=== PATIENT | female | born 1965 | race Caucasian/White ===

== ENCOUNTER 2017-05-13 10:18 | Emergency (ER) | payer OTHER, SELFPAY | END 2017-05-13 11:17 | disposition home or self-care (01) | PROVIDERS: Emergency Provider Nurse Practitioner Family; Family Provider Family Medicine; Visit Provider Nurse Practitioner Family | DX: J06.9 Acute upper respiratory infection, unspecified (principal); J40 Bronchitis, not specified as acute or chronic | CPT/HCPCS: 99201 ==

== ENCOUNTER 2018-12-21 08:54 | Outpatient (RCR) | payer OTHER, SELFPAY ==
[2018-12-28 14:11] VITALS: BMI 21.4
== END 2019-02-15 13:56 | disposition home or self-care (01) ==
LOC: PT 08:54
PROVIDERS: Visit Provider Internal Medicine Cardiovascular Disease
DX: I25.10 Atherosclerotic heart disease of native coronary artery without angina pectoris (principal)
CPT/HCPCS: 93798; 97802

== ENCOUNTER → 2018-12-28 10:52 | Outpatient (CLI) | payer OTHER, SELFPAY | PROVIDERS: PCP Family Medicine | DX: Z71.3 Dietary counseling and surveillance (principal); E11.9 Type 2 diabetes mellitus without complications ==

== ENCOUNTER 2021-09-21 09:28 | Emergency (ER) | payer OTHER, SELFPAY ==
[2021-09-21 09:40] VITALS: BP 123/79; PULSE 80; RESP 19; TEMP 37; O2SAT 100; BMI 20.5
[2021-09-21 09:56] LABS: Apearance,Urine Clear (Clear); Bilirubin,Urine 1+ (Negative); Blood, Urine 3+ (Negative); Color,Urine Amber (Yellow); Glucose,Urine (UA) 1000 (Negative); Ketones,Urine Negative (Negative); Protein,Urine 1+ (Negative); UTC Leukocyte Esterase,Urine Negative (Negative); UTC Nitrate,Urine Negative (Negative); Urobilinogen,Urine 1 EU/dl (0.2)
--- NOTE | 2021-09-21 10:04 | HMH.EDUTC ---
[facility] [place] Disposition Condition on Discharge: Good <Gael Groves - Last Filed: 09/21/21 11:54> Condition on Discharge: Good Time of Disposition: 10:17 <ChnadlerAnge - Last Filed: 09/21/21 15:44> Clinical Impression: Hematuria Qualifiers: Hematuria type: unspecified type Qualified Code(s): R31.9 - Hematuria, unspecified UTI (urinary tract infection) Qualifiers: Urinary tract infection type: acute cystitis Hematuria presence: with hematuria Qualified Code(s): N30.01 - Acute cystitis with hematuria Disposition: Home, Self-Care Instructions: Urinary Tract Infection Additional Instructions: Continue home medications as previously directed. Okay to take Tylenol, Motrin as needed for pain. Follow-up with your PCP for any persisting symptoms, return with new or concerning symptoms. No evidence of infection on urinalysis today. Prescriptions: Cefdinir [Omnicef 300mg Capsule] 300 mg PO BID #14 cap Transmission Status: Received by [facility] #[id number] Referrals: Alexey Hancock MD [Primary Care Provider] - Medical Decision Making - Medical Records Medical records reviewed: Yes: I reviewed the patient's medical records. - Lab Data Result diagrams: 09/21/21 10:35 09/21/21 10:35 - CT Data CT Scan: Abdomen, Pelvis Time Received: 11:[address] Reviewed: Yes: I have reviewed the patient's CT results <Gael Groves - Last Filed: 09/21/21 11:54> - David Inquiry Pt receiving controlled substance: No David was queried for this patient: No - Lab Data Lab results reviewed: Yes: I reviewed the patient's lab results. Result diagrams: 09/21/21 10:35 09/21/21 10:35 <Tamera Arteaga - Last Filed: 09/21/21 15:44> Vital Signs: 09/21/21 09:40 09/21/21 10:18 09/21/21 12:15 Temperature 98.6 F 97.9 F 98 F Temperature Source Axillary Oral Oral Pulse Rate 78 Pulse Rate [Right Brachial] 80 78 Respiratory Rate 19 16 16 Blood Pressure 123/74 Blood Pressure [Right Arm] 123/79 115/74 Blood Pressure Mean [Right Arm] 93 87 Blood Pressure Source [Right Arm] Automatic Cuff Blood Pressure Position Sitting Blood Pressure Position [Right Arm] Sitting Sitting 02 Sat by Pulse Oximetry 100 98 Oxygen Delivery Method Room Air Room Air Room Air - Lab Data Lab Results 09/21/21 09:46: Urine Color Twyla, Urine Appearance Turbid, Urine pH 7.0, Ur Specific Ong 1.010, Urine Protein 1+, Urine Glucose (UA) 3+, Urine Ketones Negative, Urine Blood 3+, Urine Nitrate Positive, Urine Bilirubin Negative, Urine Urobilinogen 1.0, Ur Leukocyte Esterase Trace, Urine RBC Tntc, Urine WBC 5-10, Urine Mucus 1+ 09/21/21 09:55: Urine Color Twyla, Urine Appearance Clear, Urine pH 7.0, Ur Specific Ong 1.020, Urine Protein 1+, Urine Glucose (UA) 1000, Urine Ketones Negative, Urine Blood 3+, Urine Nitrate Negative, Urine Bilirubin 1+ A, Urine Urobilinogen 1, Ur Leukocyte Esterase Negative 09/21/21 10:35: WBC 9.7, RBC 5.08, Hgb 16.1, Hct 49.2 H, MCV 96.8, MCH 31.7 H, MCHC 32.8, RDW 13.6, Plt Count 316, MPV 8.0, Neut % (Auto) 80.8 H, Lymph % (Auto) 11.6, [place] % (Auto) 4.0, Eos % (Auto) 1.0, Baso % (Auto) 2.5 H, Neut # (Auto) 7.9 H, Lymph # (Auto) 1.1, [place] # (Auto) 0.4, Eos # (Auto) 0.1, Baso # (Auto) 0.2 09/21/21 10:35: Sodium 136, Potassium 4.2, Chloride 97 L, Carbon Dioxide 31 H, Anion Gap 12.2, BUN 17, Creatinine 0.70, Estimated Creat Clear 67, Estimated GFR 87, Est GFR ( Amer) 105, Glucose 136 H, Calcium 10.0, Total Bilirubin 0.7, AST 34, ALT 29, Alkaline Phosphatase 43, Total Protein 7.4, Albumin 4.7, Globulin 2.7, Albumin/Globulin Ratio 1.7 Orders (Tests/Meds): ORDERS Category Date Time Status Urine Culture Stat Micro 09/21/21 09:57 Ordered - CT Data Findings Narrative: FINDINGS: Abdomen: The lung bases are clear. The liver parenchyma is homogeneous. There is sludge or debris in the dependent portion of the gallbladder. There is no pericholecystic inflammation. The spleen, pancreas, and adrenals ar
--- NOTE | 2021-09-21 10:10 | PC.NURSE ---
PATIENT SENT TO ER PER Santiago MCKINNEY APRN FOR FURTHER EVALUATION. REPORT GIVEN TO Zoe ESCAMILLA RN BY Santiago MCKINNEY APRN
[2021-09-21 10:18] VITALS: BP 115/74; PULSE 78; RESP 16; TEMP 36.6; O2SAT 98; BMI 20.5
--- NOTE | 2021-09-21 10:25 | CT_ITS ---
FINAL REPORT TECHNIQUE: Axial images through the abdomen and pelvis were performed without contrast. This study was performed with techniques to keep radiation doses as low as reasonably achievable, (ALARA). Individualized dose reduction techniques using automated exposure control or adjustment of mA and/or kV according to the patient's size were employed. CLINICAL HISTORY: R flank pain, hematuria. no hx surgeries COMPARISON: April 14, 2019 FINDINGS: Abdomen: The lung bases are clear. The liver parenchyma is homogeneous. There is sludge or debris in the dependent portion of the gallbladder. There is no pericholecystic inflammation. The spleen, pancreas, and adrenals are unremarkable. There is slight asymmetric prominence of the right renal pelvis. Pelvis: The urinary bladder is unremarkable. The appendix is normal. There is no pelvic mass or inflammation. There is moderate diverticulosis of the sigmoid colon. IMPRESSION: Sludge or debris in the gallbladder. Normal appendix. No renal stone or hydronephrosis. Moderate sigmoid diverticulosis. Reviewed, Interpreted and Dictated by Abilio Townsend MD Transcribed by Ryan Guillaume Authenticated by Abilio Townsend MD on 09/21/2021 11:32:58 AM [facility]
[2021-09-21 10:26] LABS: Microscopic, Urine URINE MICROSCOPIC (MICROSCOPIC)
[2021-09-21 10:36] LABS: Appearance,Urine TURBID (Clear); Bilirubin,Urine Negative (Negative); Blood, Urine 3+ (Negative); Color,Urine AMBER (Yellow); Glucose,Urine (UA) 3+ (Negative); Ketones,Urine Negative (Negative); Leukocyte Esterase,Urine TRACE (Negative); Nitrate,Urine POSITIVE (Negative); Protein,Urine 1+ (Negative)
[2021-09-21 10:45] LABS: Basophils # 0.2 K/mm3 (0-0.2); Basophils % 2.5 % (0.1-2.0); Eosinophils # 0.1 K/mm3 (0.0-0.4); Hematocrit 49.2 % (37.0-47.0); Hemoglobin 16.1 g/dL (12.2-16.2); Lymphocytes # 1.1 K/mm3 (0.7-4.5); Lymphocytes % 11.6 % (10-50); Mean Corpuscular HGB Conc 32.8 g/dL (31.8-35.4); Mean Corpuscular Hemoglobin 31.7 pg (27.0-31.2); Mean Corpuscular Volume 96.8 fl (81-99); Monocytes # 0.4 K/mm3 (0.1-1.0); Neutrophils # 7.9 K/mm3 (1.8-7.8); Neutrophils % 80.8 % (37.0-80.0); Platelet Count 316 K/mm3 (142-424); Red Blood Count 5.08 M/mm3 (4.20-5.40); Red Cell Distribution Width 13.6 % (11.5-17.5); White Blood Count 9.7 K/mm3 (4.8-10.8)
[2021-09-21 10:51] LABS: Chloride 97 mmol/L (98-107); Potassium 4.2 mmoL/L (3.5-5.1); Sodium 136 mmol/L (136-145)
[2021-09-21 10:53] LABS: Alanine Aminotransferase 29 U/L (12-78); Aspartate Amino Transferase 34 U/L (14-36); Blood Urea Nitrogen 17 mg/dl (7-17); Creatinine Clearance Estimated 67 mL/min (50-200); Estimated Glomerular Filt Rate 87 ml/min (>60); GFR (African American) 105 ML/MIN (>60)
[2021-09-21 10:54] LABS: Albumin Level 4.7 g/dl (3.5-5.0); Albumin/Globulin Ratio 1.7 (1.1-1.8); Alkaline Phosphatase 43 U/L (38-126); Anion Gap 12.2 mEq/L (5-15); Bilirubin,Total 0.7 mg/dl (0.2-1.3); Carbon Dioxide 31 mmol/L (22.0-30.0); Globulin 2.7 g/dL (1.3-3.2); Glucose 136 mg/dl (74-100); Total Protein,Serum 7.4 g/dl (6.3-8.2)
[2021-09-21 11:30] LABS: RBC,Urine TNTC #/hpf (0-3)
[2021-09-21 11:34] LABS: Mucus,Urine 1+ /lpf
[2021-09-21 12:15] VITALS: BP 123/74; PULSE 78; RESP 16; TEMP 36.6; O2SAT 98
[2021-12-19 09:44] LABS: UTC Influenza A Antigen Negative (Negative); UTC Influenza B Antigen Negative (Negative)
== END 2021-09-21 12:17 | disposition home or self-care (01) ==
LOC: UTC 09:43 → ER 10:09
PROVIDERS: Nurse Practitioner; Emergency Provider Emergency Medicine; PCP Family Medicine
DX: N30.01 Acute cystitis with hematuria (principal); E11.9 Type 2 diabetes mellitus without complications; I10 Essential (primary) hypertension; I25.10 Atherosclerotic heart disease of native coronary artery without angina pectoris; Z79.84 Long term (current) use of oral hypoglycemic drugs; Z79.899 Other long term (current) drug therapy
CPT/HCPCS: 74176; 80053; 81001; 81003; 85025; 87086; 87088; 87186; 87804; 99284

== ENCOUNTER 2022-09-12 10:07 | Outpatient (RCR) | payer OTHER, SELFPAY | END 2022-12-19 11:00 | disposition home or self-care (01) | LOC: PT 10:07 | PROVIDERS: Visit Provider Internal Medicine Cardiovascular Disease | DX: I25.810 Atherosclerosis of coronary artery bypass graft(s) without angina pectoris (principal) | CPT/HCPCS: 93798 ==

== ENCOUNTER → 2023-07-10 14:35 | Outpatient (POV) | payer OTHER, BC, SELFPAY ==
--- NOTE | 2023-07-10 15:02 | EXP.PAIN.OV ---
HPI Data of Consult Patient: new to practice Consult date: 07/10/23 Requesting Physician: Twyla Crowley APRN Primary Care Provider: Deloris Wyatt APRN Consult Narrative Reason for consult: Low back pain, bilateral hip pain, buttocks pain History of present illness: Ms. Atwood is a 58 year old female who presents today as a new patient. She is a referral from Jumana Kelly's office. Today she rates her pain a 7 out of 10. Patient states her pain is all in her low back with radiating symptoms into her hips and buttocks. She describes this as an aching, burning sensation. She does state that she has had pain in her low back for more than 10 years and that generally she would do regular chiropractor and physical therapy and this would provide significant relief. Patient states over time it is no longer been as effective. She does state that the pain interferes with her ability perform activities of daily living such as cooking and cleaning. Patient is scheduled to see a neurosurgeon Dr. Sivakumar doran in [place] coming up in the next few weeks. Patient states that she is interested in injections for her low back and leg symptoms. Patient denies any previous injections into her low back however states she did have some in her neck in the past. Patient does states she has a significant cardiac history and did have open heart surgery back in June 2022. She does state that the pain seemed to worsen after this procedure. She states that she is interested in any help we may be able to provide is that she does not want to go into this some her having to have another surgery. Patient has tried krox-uey-[id number] medications such as Tylenol and ibuprofen along with Flexeril, heat and ice and topicals with minimal relief. Patient is not currently on any scheduled medications. Her David has been reviewed and is appropriate. CC: Twyla Crowley APRN [facility] Disclaimer: The information contained in this section may have been updated after the patient was seen, as this information can be updated by other users. Medical History (Updated 07/10/23 @ 15:58 by Twyla Crowley APRN) History of placement of stent in LAD coronary artery HTN (hypertension) Surgical History (Updated 07/10/23 @ 15:31 by Alanis Cameron RN) H/O spinal fusion History of open heart surgery Family History (Updated 07/10/23 @ 15:32 by Alanis Cameron RN) Other No significant family history Social History (Updated 12/06/22 @ 10:52 by Toma Mishra MA) Smoking Status: Never smoker alcohol intake: never substance use type: denies use current occupational status: other Travel in the last 8 weeks: None household members: family housing: house lives independently: Yes marital status: number of children: 2 number of grandchildren: 2 service: No mcc: No pets and animals: Yes Review of Systems Review of Systems Review of systems:: pertinent systems reviewed and negative unless documented below Review of systems (narrative): Review of Systems: General: No recent weight changes, no fever, no sleep disturbances Respiratory: No cough, no shortness of air, no recurring pulmonary infections Cardiovascular/peripheral vascular: No chest pain, no palpitations, no edema, no shortness of breath Gastrointestinal: No new onset incontinence, normal bowel movements reported Genitourinary: No new onset incontinence Musculoskeletal: Low back pain, bilateral hip/buttocks pain Psychiatric: [Normal mood/affect] Neurological: [Denies weakness in extremities], [denies balance issues] Meds Home Medications and Allergies Home Medications Medication Instructions Recorded Confirmed Type empagliflozin 25 mg tablet 25 mg PO DAILY Diabetes 04/14/19 12/06/22 History isosorbide dinitrate 30 mg tablet 30 mg PO DAILY Hypertension 04/14/19 12/06/22 History lisinopril 2.5 mg tablet 2.5 mg PO DAILY Hypertension 04/14/19 12/06/22 History metoprolol succinate 100 mg 100 mg PO BID Hypertension 04/14/19 12/06/22 History tablet,extended release 24 hr aspirin 81 mg tablet,delayed 81 mg PO DAILY 12/02/22 12/06/22 History release (Adult Low Dose Aspirin) cyclobenzaprine 10 mg tablet 10 mg PO HS 12/02/22 12/06/22 History naproxen 500 mg tablet 500 mg PO BID PRN 12/02/22 12/06/22 History ranolazine 500 mg tablet,extended 500 mg PO BID 12/02/22 12/06/22 History release,12 hr (Ranexa) semaglutide 0.25 mg or 0.5 mg (2 0.25 mg SQ WEEKLY 12/02/22 12/06/22 History mg/3 mL) subcutaneous pen injector (Ozempic) triamcinolone acetonide 0.1 % 1 applic topical BID #15 grams 12/06/22 12/06/22 Rx topical cream New Prescriptions to Start Prescriptions: Allergies Allergy/AdvReac Type Severity Reaction Status Date / Time No Known Allergies Allergy Verified 12/06/22 10:58 Objective Narrative: Physical Exam: General: Alert and oriented x3, no acute distress, pleasant and cooperative Lungs: Respirations even and unlabored, symmetrical chest expansion Eyes: PERRL Musculoskeletal: Flexion and extension of lumbar [spine] somewhat guarded secondary to pain, [antalgic gait noted] point tenderness along bilateral SIs with positive bilateral Alcides's, Cedric's, Gaenslen's, compression and distraction exam Neurological: Speech clear, no gross sensory deficit Additional findings Additional findings: [facility] 12/18/2022 MRI lumbar spine without contrast Findings: Sagittal images show normal vertebral height. Alignment is normal. Fatty endplate signal changes at L5-S1. Moderate disc protrusion at T11-12 with limited visualization seen on sagittal imaging only. T12-L3 unremarkable. L3-4: Mild annular disc bulge. L4-L5: Mild annular disc bulge and facet arthropathy. L5-S1 moderate-sized central disc protrusion indents the thecal sac. Mild facet arthropathy, moderate bilateral neuroforaminal narrowing Assessment and Plan *Assessment and plan (1) Low back pain: Status: Acute Qualifiers: Chronicity: chronic Back pain laterality: bilateral Sciatica presence: with sciatica Sciatica laterality: bilateral sciatica Qualified Code(s): M54.42 - Lumbago with sciatica, left side; M54.41 - Lumbago with sciatica, right side; G89.29 - Other chronic pain Category: Medical Code(s): M54.50 - Low back pain, unspecified (2) Bilateral hip pain: Status: Acute Category: Medical Code(s): M25.551 - Pain in right hip; M25.552 - Pain in left hip (3) Buttock pain: Status: Acute Category: Medical Code(s): M79.18 - Myalgia, other site Plan Patient is experiencing significant pain in her low back and bilateral hips with some pain into her buttocks. Patient did have point tenderness along her bilateral SIs and piriformis muscle along with a positive bilateral Alcides's, Cedric's, Gaenslen's, compression and distraction exam. I have discussed with the patient that I do believe that she would benefit from bilateral SI injections as well as possible piriformis injections in the future. Risk and benefits were discussed with the patient and she would like to proceed forward with this plan of care. I have also counseled the patient that I would recommend a second opinion regarding her neurosurgery consult before proceeding forward with a lumbar fusion. I will order the patient a compounded cream. Patient will be scheduled for bilateral SI injections under fluoroscopy. Patient has been instructed to contact the clinic with any concerns before the next appointment. Dr. Easton has reviewed this note and agrees with this plan of care. This note was dictated using voice recognition software and make contain errors or omissions.
[2023-07-10 15:32] VITALS: BP 110/63; PULSE 93; RESP 20; O2SAT 100; BMI 19.5
== END ==
LOC: SC.PAIN 14:36
PROVIDERS: PCP Nurse Practitioner Family; Visit Provider Nurse Practitioner Family
DX: M54.42 Lumbago with sciatica, left side (principal); M54.41 Lumbago with sciatica, right side; G89.29 Other chronic pain; M25.551 Pain in right hip; M25.552 Pain in left hip; M79.18 Myalgia, other site
CPT/HCPCS: 99202; G0463

== ENCOUNTER 2023-07-29 11:03 | Day surgery (SDC) | payer OTHER, BC, SELFPAY ==
[2023-07-29 11:56] VITALS: BP 106/60; PULSE 90; RESP 16; TEMP 36.6; O2SAT 99; BMI 19.7
[2023-07-29] MEDS: LIDOCAINE 1% 5ML PF VIAL 5 ML (12:15)
[2023-07-29] MEDS: BUPIVACAINE 0.25% 10ML INJ 25 MG IJ (12:15)
[2023-07-29] MEDS: methylPREDNISolone ACETATE 80MG/ML VIAL 80 MG (12:16)
--- NOTE | 2023-07-29 12:21 | P.PCN_ITS ---
Procedure Date: 07/29/23 Time: 12:00 Anesthesiologist:: Jose Bonds CRNA Complications:: None Pre-procedure Diagnosis:: Bilateral sacroiliitis Post-procedure Diagnosis:: Same. Indications for Procedure:: Patient is a very pleasant 58-year-old female comes our clinic today for bilateral sacroiliac joint injection. Patient reports bilateral posterior hip pain. Patient also reports difficulty transitioning from sitting to standing. Ambulation increases pain in the posterior hip area. She rates her pain today 7/10. Procedure Details:: Procedure: Bilateral sacroiliac joint injections under fluoroscopy Informed consent was obtained and the risks and benefits of the procedure were explained to the patient.~ The patient was taken to the procedure room and noninvasive monitors were placed including a noninvasive blood pressure cuff and pulse oximeter.~ The patient was placed prone on the procedure table. Both hips were cleansed using Betadine as a cleansing solution. C-arm fluoroscopy was used to view the right sacroiliac joint.~ The skin and subcutaneous tissues were anesthetized using lidocaine 1.5% and a 25-gauge needle.~ After this, a 22-gauge spinal needle was inserted under fluoroscopic guidance into the inferior aspect of the right sacroiliac joint.~ Omnipaque dye was injected and good spread was seen throughout the joint.~ After this, approximately 5 mL of bupivacaine, 0.25% and Depo-Medrol, 40 mg was incrementally injected into the right sacroiliac joint. We then moved to the left sacroiliac joint.~ The skin and subcutaneous tissues were anesthetized using lidocaine 1.5% and a 25-gauge needle.~ After this, a 22- gauge spinal needle was inserted under fluoroscopic guidance into the inferior aspect of the left sacroiliac joint.~ Omnipaque dye was injected and good spread was seen throughout the joint. After this, approximately 5 mL of bupivacaine, 0.25% and Depo-Medrol, 40 mg was incrementally injected into the left sacroiliac joint.~ The patient tolerated the procedure well with no complications. The patient was observed in the Pain Clinic and then was discharged home neurologically intact. Plan and Disposition:: Patient was discharged without incident.
[2023-07-29 12:25] VITALS: BP 104/58; PULSE 85; RESP 16; O2SAT 99
== END 2023-07-29 12:25 | disposition home or self-care (01) ==
PROVIDERS: Visit Provider Nurse Anesthetist, Certified Registered
DX: M46.1 Sacroiliitis, not elsewhere classified (principal)
CPT/HCPCS: 27096; G0260; J1040

== ENCOUNTER 2023-08-13 13:35 | Outpatient (POV) | payer OTHER, BC, SELFPAY ==
[2023-08-13 13:48] VITALS: BP 119/64; PULSE 90; RESP 18; BMI 19.5
--- NOTE | 2023-08-13 14:48 | EXP.PAIN.SOA ---
[facility] Pain Management SOAP Note Subjective:: Patient is a pleasant 58-year-old female who presents today for follow-up of bilateral SI injections on 07/29/2023. Her pain today is a 5 out of 10. She denies any new trauma or injury. She states she may have only had about 25% improvement following this injection. Patient does states she continues to have pain in her low back but that it is going down into her legs. Patient states that it is an aching, throbbing sensation with some numbness and tingling into her extremities. She does state that from her last visit she did talk to her keno writer/runner Dr. Schuster who does write her Plavix blood thinner and that he is stated that she can come off this medication for a week if needed for the injections. Patient does state the pain interferes with her ability perform activities of daily living such as cooking and cleaning. From our last visit she did state that she had improvement with the compounded cream when she applied it to her neck and shoulders however she states when she applied it across to her low back she did have a rash come up. Patient states that it was very random and again had no issues on the upper back. Patient states she is going to try and use it again in the future. Her David has been reviewed and is appropriate. Review of Systems: General: No recent weight changes, no fever, no sleep disturbances Respiratory: No cough, no shortness of air, no recurring pulmonary infections Cardiovascular/peripheral vascular: No chest pain, no palpitations, no edema, no shortness of breath Gastrointestinal: No new onset incontinence, normal bowel movements reported Genitourinary: No new onset incontinence Musculoskeletal: Low back pain, bilateral leg pain Psychiatric: [Normal mood/affect] Neurological: [Denies weakness in extremities], [denies balance issues] Objective:: Physical Exam: General: Alert and oriented x3, no acute distress, pleasant and cooperative Lungs: Respirations even and unlabored, symmetrical chest expansion Eyes: PERRL Musculoskeletal: Flexion and extension of lumbar [spine] somewhat guarded secondary to pain, [antalgic gait noted] Neurological: Speech clear, no gross sensory deficit Assessment:: Degenerative disc disease of lumbar spine with lumbar radiculopathy symptoms, bilateral hip pain, buttocks pain Plan:: Patient continues to experience significant pain in her low back and legs with limited range of motion of her lumbar spine. I have discussed with patient that she may benefit from a lumbar epidural steroid injection. Risk and benefits were discussed with the patient and she would like to proceed forward with this plan of care. Patient is on Plavix that is written by Dr. Schuster. We will reach out to his office and confirm that she can stop this medication. She states that he stated he would like something to our office if needed to confirm this. I have also discussed with the patient due to her skin reaction on her low back to make sure that when she does try the compounded cream again that she does not put it is all across her back and just try a small area first. Patient agrees with this plan of care. Patient has tried and failed conservative therapy such as oral medications, heat and ice, topicals, previous physical therapy, at home stretching exercise for longer than 6 weeks. Patient will be scheduled for an LESI L4-L5 under fluoroscopy. Patient has been instructed to contact the clinic with any concerns before the next appointment. Dr. Easton has reviewed this note and agrees with this plan of care. This note was dictated using voice recognition software and make contain errors or omissions. [facility] Disclaimer: The information contained in this section may have been updated after the patient was seen, as this information can be updated by other users. Medical History HTN (hypertension) History of placement of stent in LAD coronary artery Surgical History H/O spinal fusion History of open heart surgery Family History Other No significant family history Social History Smoking Status: Never smoker alcohol intake: never substance use type: denies use current occupational status: other Travel in the last 8 weeks: None household members: family housing: house lives independently: Yes marital status: number of children: 2 number of grandchildren: 2 service: No care home: No pets and animals: Yes
== END 2023-08-13 23:59 ==
LOC: SC.PAIN 13:36
PROVIDERS: Visit Provider Nurse Practitioner Family
DX: M51.16 Intervertebral disc disorders with radiculopathy, lumbar region (principal); M25.551 Pain in right hip; M25.552 Pain in left hip; M79.18 Myalgia, other site
CPT/HCPCS: 99212; G0463

== ENCOUNTER 2023-09-09 10:28 | Day surgery (SDC) | payer OTHER, BC, SELFPAY ==
[2023-09-09 10:55] VITALS: BP 111/70; BP 96/70; PULSE 72; PULSE 88; RESP 18; O2SAT 100; O2SAT 99; BMI 19.9
[2023-09-09 11:22] VITALS: BP 105/65; PULSE 90; RESP 18; O2SAT 99
[2023-09-09] MEDS: methylPREDNISolone ACETATE 80MG/ML VIAL 80 MG (11:22)
[2023-09-09 11:23] VITALS: BP 105/65; PULSE 90; RESP 18; O2SAT 99
--- NOTE | 2023-09-09 11:27 | EXP.PAIN.PRO ---
Procedure Date: 09/09/23 Time: 11:15 Anesthesiologist:: Jose Bonds CRNA Complications:: None Pre-procedure Diagnosis:: Degenerative disc lumbar spine multilevels. Lumbar radiculopathy. Post-procedure Diagnosis:: Same. Indications for Procedure:: Patient is a very pleasant 58-year-old female comes our clinic today for lumbar epidural steroid injection L4-5 level. Patient is status post 1 round of bilateral sacroiliac joint injections. She reports about 50% improvement in terms of her overall low back pain as well as bilateral hip and leg pain. Patient describes low back pain as constant, dull, aching. Patient also reports bilateral hip and leg radicular symptoms at times. She rates her pain 6/10. Procedure Details:: Procedure: Lumbar epidural steroid injection under fluoroscopy Informed consent was obtained and the risks and benefits of the procedure were explained to the patient. The patient was taken to the procedure room and noninvasive monitors placed, including noninvasive blood pressure cuff and pulse oximeter. The back was viewed using C-arm Fluoroscopy and prepped using Chloraprep as a cleansing solution and the L4-L5 interspace was palpated. Skin and subcutaneous tissues were anesthetized using lidocaine 1.5% and a 25-gauge needle. After this, an 18-gauge Touhy epidural needle was placed into the L4-L5 interspace and advanced using fluoroscopic guidance and loss of resistance to air until the epidural space was encountered. After confirmation of needle placement in the epidural space, with dye, a solution containing normal saline, 3 mL and Depo-Medrol 80 mg were incrementally injected into the lumbar epidural space. The patient tolerated the procedure well with no complications. The patient was observed in the Pain Clinic and then discharged home neurologically intact. Plan and Disposition:: Patient was discharged without incident.
== END 2023-09-09 10:55 | disposition home or self-care (01) ==
LOC: SC.PAINP 10:29
PROVIDERS: PCP Student in an Organized Health Care Education/Training Program; Visit Provider Nurse Anesthetist, Certified Registered
DX: M51.16 Intervertebral disc disorders with radiculopathy, lumbar region (principal)
CPT/HCPCS: 62323; J1010

== ENCOUNTER 2023-09-29 11:32 | Outpatient (CLI) | payer OTHER, BC, SELFPAY ==
[2023-09-29 12:17] LABS: Basophils # 0.1 K/mm3 (0-0.2); Basophils % 1.3 % (0.1-2.0); Eosinophils # 0.1 K/mm3 (0.0-0.4); Eosinophils % 1.4 % (0.1-12.0); Hematocrit 48.3 % (37.0-47.0); Hemoglobin 15.7 g/dL (12.2-16.2); Lymphocytes # 1.3 K/mm3 (0.7-4.5); Lymphocytes % 22.2 % (10-50); Mean Corpuscular HGB Conc 32.6 g/dL (31.8-35.4); Mean Corpuscular Hemoglobin 32.5 pg (27.0-31.2); Mean Corpuscular Volume 99.7 fl (81-99); Mean Platelet Volume 8.4 fl (7.4-10.4); Monocytes # 0.3 K/mm3 (0.1-1.0); Monocytes % 5.4 % (1.7-9.3); Neutrophils # 3.9 K/mm3 (1.8-7.8); Neutrophils % 69.6 % (37.0-80.0); Platelet Count 240 K/mm3 (142-424); Red Blood Count 4.84 M/mm3 (4.20-5.40); Red Cell Distribution Width 14.9 % (11.5-17.5); White Blood Count 5.6 K/mm3 (4.8-10.8)
[2023-09-29 12:50] LABS: Alanine Aminotransferase 25 U/L (12-78); Albumin Level 4.1 g/dl (3.5-5.0); Albumin/Globulin Ratio 1.9 (1.1-1.8); Alkaline Phosphatase 55 U/L (38-126); Anion Gap 7.1 mEq/L (5-15); Aspartate Amino Transferase 32 U/L (14-36); Bilirubin,Total 0.5 mg/dl (0.2-1.3); Blood Urea Nitrogen 15 mg/dl (7-17); Calcium 9.4 mg/dl (8.4-10.2); Carbon Dioxide 32 mmol/L (22.0-30.0); Chloride 103 mmol/L (98-107); Estimated Glomerular Filt Rate 127 ml/min (>60); GFR (African American) 153 ML/MIN (>60); Globulin 2.2 g/dL (1.3-3.2); Glucose 163 mg/dl (74-100); Potassium 4.1 mmoL/L (3.5-5.1); Sodium 138 mmol/L (136-145); Total Protein,Serum 6.3 g/dl (6.3-8.2)
[2023-09-30 08:26] LABS: HBsAg Screen Negative (Negative); HCV Ab Non Reactive (Non Reactive); Hep A Ab, IGM Negative (Negative); Hep B Core Ab, IgM Negative (Negative)
[2023-10-01 16:32] LABS: QuantiFERON-TB Gold Plus Negative (Negative)
== END 2023-09-29 23:59 | disposition home or self-care (01) ==
LOC: LAB 11:33
PROVIDERS: PCP Student in an Organized Health Care Education/Training Program; Visit Provider Physician Assistant Medical
DX: L40.0 Psoriasis vulgaris (principal)
CPT/HCPCS: 36415; 80053; 80074; 85025; 86480

== ENCOUNTER 2023-10-01 13:56 | Outpatient (POV) | payer OTHER, BC, SELFPAY ==
--- OUTSIDE RECORDS SUMMARY | 2023-10-01 13:58 | XMS_ITS | Clinical Summary ---
Author Name Unknown Address [address] [place] [address] Phone Organization [facility] Address [address] [place] [address] Phone Care Team Providers Care School Director Name Role Phone Dave Crowley MD Unavailable [phone] Danelle Winchester Primary Care Provider [phone] Reason for Visit and Chief Complaint The Chief Complaint is: Neck pain right hip pain low back pain Problems Includes: Problems addressed during this encounter and other active Problems Current Visit Onset Date Resolved Date Provider Bharath roberts Status Joint Pain in the Right Hip 03/12/2023 Sukhi Leigh PA-C Active Last Documented On 3 10:15AM ; [facility] Lower Back Pain 12/09/2022 Sukhi Leigh PA-C A ctive Last Documented On 3 10:37AM ; [facility] Plan of Treatment Patient was seen by myself Sukhi Leigh PA-C. Patient will follow up in 4 weeks if she is not better we will consider an MRI of her neck we will start with physical therapy for both her neck and low back and we will set her up for a hip intra-articular injection for the right hip - Last Documented On 03/12/2023 12:52PM ; [facility] Pending Tests Order Diagnosis Results Due Ordering P rovider Radiology - MRI MRI Lumbar Spine Low back pain, unspecified 12/23/22 Sukhi Leigh PA-C Last Documented On 3 11:53AM ; [facility] Assessments Includes: Assessments from this encounter Findings Cervical DDD left hip pain low back pain - Last Documented On 03/12/2023 12:52PM ; [facility] Medical Equipment - Implanted Devices Includes: Current Devices No Medical Equipment Recorded Medications Includes: Medications discussed during this encounter and other current Medications Current Medications (continue as prescribed) Repatha SureClick 140 MG/ML Subcutaneous Solution Auto-injector 03/10/2023 Provider: HERNANDEZ BOWERS MD Diagnosis: Last Documented On 3 10:21AM By Nakita Low ; [facility] Metoprolol Succinate ER 100 MG Oral Tablet Extended Release 24 Hour 12/09/2022 Provider: Diagnosis: Last Documented On 3 11:37AM By Samia Blanco ; [facility] Aspir-Low 81 MG Oral Tablet Delayed Release 12/09/2022 Provider: Diagnosis: Last Documented On 3 11:37AM By Samia Blanco ; [facility] Lisinopril 20 MG Oral Tablet 12/09/2022 Provider: Diagnosis: Last Documented On 3 11:37AM By Samia Blanco ; [facility] Plavix 75 MG Oral Tablet 12/09/2022 Provider: Diagnosis: Last Documented On 3 11:37AM By Samia Blanco ; [facility] Jardiance 25 MG Oral Tablet 12/09/2022 Provider: Diagnosis: Last Documented On 3 11:37AM By Samia Blanco ; [facility] Ozempic (0.25 or 0.5 MG/DOSE ) 2 MG/1.5ML Subcutaneous Solution Pen-injector 12/09/2022 Provider: Diagnosis: Last Documented On 3 11:38AM By Samia Blanco ; [facility] Isosorbide Mononitrate ER 60 MG Oral Tablet Extended Release 24 Hour 12/09/2022 Provider: Diagnosis: Last Documented On 3 11:38AM By Samia Blanco ; [facility] Estradiol 0.1 MG/24HR Transdermal Patch Twice Weekly 0 12/09/2022 Provider: Diagnosis: Last Documented On 3 11:38AM By Samia Blanco ; [facility] Progesterone 100 MG Oral Capsule 12/09/2022 Provider : Diagnosis: Last Documented On 3 11:39AM By Samia Blanco ; [facility] Medications Administered Includes: Administered Medications from this encounter No Administered Medications Recorded Vital Signs Includes: Vital Signs from this encounter Vital Name 03/12/2023 10:17A Height (in) 60 Weight (lb) 100 Body Mass Index 19.5 Body Surface Area 1.4 Note: lc Last Documented: On 03/12/2023 10:18A M ; [facility] Results Includes: Results discussed during this encounter No Results Recorded For Specified Dates History of Present Illness Includes: History of Present Illness from this encounter OLIVIA Atwood is a 58 year old female. - Allergy list reviewed - Problem list reviewed - Medication list reviewed - Medication list reviewed Patient is here today for complaints of neck pain lower back pain and right hip pain. Her neck still bothering her a long time hurts when she tries to look up or looks to the side but no balance problems bowel or bladder problems she does get some intermittent tingling on the right fourth and fifth finger and some tingling in the left fourth finger. We have seen her in the past for her back. She has had central disc herniation at L5-S1 no radicular symptoms with this presently but mainly does show some lower back pain she feels that she cannot twisted or tweaked it over the weekend. She says her right hip will catch to look at that in the past for her and suggested hip intra-articular injection. She is unable to do epidural injections as she is on Plavix and she has had previous epidural injections with her lower back in the past. Social History Description Last Updated Tobacco non-user 12/09/2022 Last Documented On 3 10:16AM ; [facility] No recent change in diet 12/09/2022 Last Documented On 3 10:16AM ; [facility] Not a current smoker. 12/09/2022 Last Documented On 3 10:16AM ; [facility] Not using alcohol 12/09/2022 Last Documented On 3 10:16AM ; [facility] Caffeine use 06/27/2016 Last Documented On 3 10:16AM ; [facility] Exercising regularly 06/27/2016 Last Documented On 3 10:16AM ; [facility] No tobacco use 06/27/2016 Last Documented On 3 10:16AM ; [facility] Not a current smoker 06/27/2016 Last Documented On 3 10:16AM ; [facility] Not using drugs 06/27/2016 Last Documented On 3 10:16AM ; [facility] Recent change in diet 06/27/2016 Last Documented On 3 10:16AM ; [facility] Smoking status : Never smoker 06/27/2016 Last Documented On 3 10:16AM ; [facility] Procedures and Surgical History Includes: Procedures from this encounter Procedures Code Diagnosis Performing Provider Service Location Service Date X-RAY EXAM OF NECK SPINE 2 [id number] Other intervertebral disc degeneration, lumbar region, Pain in left hip, Cervicalgia Sukhi Leigh PA-C [facility] [place] 03/12/2023 Last Documented On 3 5:15AM ; [facility] use of tobacco assessment performed 1000F Last Documented On 3 10:16AM ; [facility] review of medications documented 1160F Last Documented On 3 10:16AM ; [facility] Surgical History Last Updated History of heart surgery 12/09/2022 Last Documented On 3 10:16AM ; [facility] Medical History Includes: Medical History addressed during this encounter Description Last Updated high cholestorol 12/09/2022 Last Documented On 3 10:16AM ; [facility] A recent immunization for pneumococcal p neumonia 06/27/2016 Last Documented On 3 10:16AM ; [facility] History of diabetes mellitus 06/27/2016 Last Documented On 3 10:16AM ; [facility] History of diverticulitis of colon 06/27 Last Documented On 3 10:16AM ; [facility] History of heart disease 06/27/2016 Last Documented On 3 10:16AM ; [facility] Intermittent hypertension 06/27/2016 Last Documented On 3 10:16AM ; [facility] Family History Includes: Family History addressed during this encounter Description Last Updated Diabetes mellitus 12/09/2022 Last Documented On 3 10:16AM ; [facility] Paternal history of stroke 06/27/2016 Last Documented On 3 10:16AM ; [facility] Family history of diabetes mellitus 06/2016 Last Documented On 3 10:16AM ; [facility] Family history of heart disease 06/27/19 17 Last Documented On 3 10:16AM ; [facility] Family history of hypertension 7 Last Documented On 3 10:16AM ; [facility] Family history of osteoporosis 7 Last Documented On 3 10:16AM ; [facility] Review of Systems Includes: Review of Systems from this encounter Systemic: Not feeling tired, no recent weight loss, and no recent weight gain. No edema. Head: No headache and no sinus pain. Eyes: No vision problems and no glaucomatous visual field defect. No Cataracts. Glasses/Contacts. No Glaucoma. Otolaryngeal: No hearing loss and no tinnitus. No nasal symptoms. Cardiovascular: No chest pain or discomfort and no palpitations. Hypertension. No High Cholesterol. Pulmonary: No daytime asthma symptoms, no cough, and no chronic cough. No wheezing. Gastrointestinal: No heartburn and no abdominal pain. No Indigestion, no Acid Reflux, no Peptic Ulcer, no GI Stomach Bleed, and no Ulcers. Endocrine: No hot flashes and no muscle weakness. Diabetes. No Hypothyroid and no Hyperthyroid. Hematologic: No easy bleeding, no tendency for easy bruising, and no Anemia. Musculoskeletal: No Arthritis and no lower back pain. No soft tissue swelling and no localized joint pain. Neurological: No dizziness, no convulsions, and no numbness. Psychological: No anxiety, no emotional lability, no depression, and no insomnia. Not crying for no reason. Skin: No dry skin. No Ulcers, no Scars, no rash, and no ulcers. Allergic and Immunologic: No complaint of seasonal allergic reaction. Mental Status Includes: Mental Status from this encounter Description No anxiety Functional Status Includes: Functional Status from this encounter No Functional Status Recorded Physical Exam Includes: Physical Exam from this encounter Allergies Includes: Active Allergies No Known Allergies Encounters Encounter Provider Location Date Check-In Time Check- Out Time Diagnosis Follow Up Sukhi Leigh PA-C [facility] 3 10:09AM 11:28AM Insurance Includes: Active Insurance Policies Plan Name Member ID Group # Subscriber Relationship Effect gilda Dates 1 - R [id number] Gloria Atwood Self - Unknown 2 - [facility] [id number] Gloria Atwood Self 05/26/2022 - Unknown Clinical Notes Includes: Clinical Notes from this encounter * Progress note Date Encounter Last Documented by 03/12/2023 Follow Up Last documented on 03/12/2023; 12:52 PM, Sukhi Pabon; [facility] Active Problems & Conditions - Joint Pain in the Right Hip - Lower Back Pain Chief Complaint The Chief Complaint is: Neck pain right hip pain low back pain. Referred Here Referred by Danelle Winchester. History of Present Illness Gloria Atwood is a 58 year old female. - Allergy list reviewed - Problem list reviewed - Medication list reviewed - Medication list reviewed Patient is here today for complaints of neck pain lower back pain and right hip pain. Her neck still bothering her a long time hurts when she tries to look up or looks to the side but no balance problems bowel or bladder problems she does get some intermittent tingling on the right fourth and fifth finger and some tingling in the left fourth finger. We have seen her in the past for her back. She has had central disc herniation at L5-S1 no radicular symptoms with this presently but mainly does show some lower back pain she feels that she cannot twisted or tweaked it over the weekend. She says her right hip will catch to look at that in the past for her and suggested hip intra-articular injection. She is unable to do epidural injections as she is on Plavix and she has had previous epidural injections with her lower back in the past. Current Medication - Aspir-Low 81 MG Oral Tablet Delayed Release 0 days, 0 refills - Estradiol 0.1 MG/24HR Transdermal Patch Twice Weekly 0 days, 0 refills - Isosorbide Mononitrate ER 60 MG Oral Tablet Extended Release 24 Hour 0 days, 0 refills - Jardiance 25 MG Oral Tablet 0 days, 0 refills - Lisinopril 20 MG Oral Tablet 0 days, 0 refills - Metoprolol Succinate ER 100 MG Oral Tablet Extended Release 24 Hour 0 days, 0 refills - Ozempic (0.25 or 0.5 MG/DOSE) 2 MG/1.5ML Subcutaneous Solution Pen-injector 0 days, 0 refills - Plavix 75 MG Oral Tablet 0 days, 0 refills - Progesterone 100 MG Oral Capsule 0 days, 0 refills - Repatha SureClick 140 MG/ML Subcutaneous Solution Auto-injector 28 days, 0 refills Past Medical/Surgical History Reported: Medical: Intermittent hypertension. Immunization History: Recent immunization for pneumococcal pneumonia. Diagnoses: Heart disease. Diverticulitis of colon. Diabetes mellitus High cholestorol. Surgical: - Heart surgery Social History Not a current smoker. Current diet: Recent change in diet. No recent change in diet. Caffeine use: Caffeine use. Tobacco use: No tobacco use and not a current smoker. Tobacco non-user. Smoking status: Never smoker. Alcohol: Not using alcohol. Drug Use: Not using drugs. Habits: Exercising regularly. Allergies - No Known Allergies Family History Heart disease Diabetes mellitus Paternal history of stroke Systemic hypertension Osteoporosis Diabetes mellitus Review Of Systems Systemic: Not feeling tired, no recent weight loss, and no recent weight gain. No edema. Head: No headache and no sinus pain. Eyes: No vision problems and no glaucomatous visual field defect. No Cataracts. Glasses/Contacts. No Glaucoma. Otolaryngeal: No hearing loss and no tinnitus. No nasal symptoms. Cardiovascular: No chest pain or discomfort and no palpitations. Hypertension. No High Cholesterol. Pulmonary: No daytime asthma symptoms, no cough, and no chronic cough. No wheezing. Gastrointestinal: No heartburn and no abdominal pain. No Indigestion, no Acid Reflux, no Peptic Ulcer, no GI Stomach Bleed, and no Ulcers. Endocrine: No hot flashes and no muscle weakness. Diabetes. No Hypothyroid and no Hyperthyroid. Hematologic: No easy bleeding, no tendency for easy bruising, and no Anemia. Musculoskeletal: No Arthritis and no lower back pain. No soft tissue swelling and no localized joint pain. Neurological: No dizziness, no convulsions, and no numbness. Psychological: No anxiety, no emotional lability, no depression, and no insomnia. Not crying for no reason. Skin: No dry skin. No Ulcers, no Scars, no rash, and no ulcers. Allergic and Immunologic: No complaint of seasonal allergic reaction. Physical Findings - Vitals taken 03/12/2023 10:17 am lc Height 60 in Weight 100 lbs Body Mass Index 19.5 kg/m2 Body Surface Area 1.4 m2 She does have some pain with hip internal extra rotation of the right hip no tenderness over the greater trochanter she has 5 out of 5 EHL gastroc quadricep tibialis anterior strength bilaterally for her neck she has limited motion with cervical rotation bilaterally and cervical flexion. She has 5 out of 5 biceps triceps deltoids wrist extension and flexion strength and no long track signs Tests Cervical spine x-rays 2 views 03/12/2023 show some degenerative changes Assessment Cervical DDD left hip pain low back pain Previous Tests Available previous imaging studies were reviewed Available previous history reviewed Plan Patient was seen by myself Sukhi Leigh PA-C. Patient will follow up in 4 weeks if she is not better we will consider an MRI of her neck we will start with physical therapy for both her neck and low back and we will set her up for a hip intra-articular injection for the right hip Notes This dictation was done with voice recognition software and may contain errors and omissions. Practice Management Use of tobacco assessment performed Review of medications documented. Care Team - Danelle Winchester - [employer]
--- OUTSIDE RECORDS SUMMARY | 2023-10-01 13:58 | XMS_ITS | Clinical Summary ---
Author Name Unknown Address [address] [place] [address] Phone Organization [facility] , [facility] Address [address] [place] [address] Phone Care Team Providers Care Regional Education Coordinator Name Role Phone Dave Crowley MD Unavailable [phone] Danelle Winchester Primary Care Provider [phone] Reason for Visit and Chief Complaint The Chief Complaint is: Follow up: Lumbar pain Problems Includes: Problems addressed during this encounter and other active Problems Current Visit Onset Date Resolved Date Provider Conditio n Status Lower Back Pain 12/09/2022 Sukhi Leigh PA-C A ctive Last Documented On 3 10:37AM ; [facility], [facility] Past Visits Onset Date Resolved Date Provider Condition Status Joint Pain in the Right Hip 03/12/2023 Sukhi Leigh PA-C Active Last Documented [facility] 3 10:15AM [facility] Plan of Treatment We'll set her up for right SI joint injection and have her follow up afterwards we will give her refill of her compound pain cream Patient was seen by myself and Dr. Crowley. Electronically signed ELIDA Porras - Last Documented On 07/01/2016 9:08AM ; [facility] Assessments Includes: Assessments from this encounter Findings L5-S1 DDD - Last Documented On 07/01/2016 9:08AM ; [facility] Right SI joint pain - Last Documented On 07/01/2016 9:08AM ; [facility], [facility] Medical Equipment - Implanted Devices Includes: Current Devices No Medical Equipment Recorded Medications Includes: Medications discussed during this encounter and other current Medications Current Medications (continue as prescribed) Repatha SureClick 140 MG/ML Subcutaneous Solution Auto-injector 03/10/2023 Provider: HERNANDEZ BOWERS MD Diagnosis: Last Documented On 3 10:21AM By Nakita Low ; [facility] Metoprolol Succinate ER 100 MG Oral Tablet Extended Release 24 Hour 12/09/2022 Provider: Diagnosis: Last Documented On 3 11:37AM By Samia Blanco ; [facility] Aspir-Low 81 MG Oral Tablet Delayed Release 12/09/2022 Provider: Diagnosis: Last Documented On 3 11:37AM By Samia Blanco ; [facility] Lisinopril 20 MG Oral Tablet 12/09/2022 Provider: Diagnosis: Last Documented On 3 11:37AM By Samia Blanco ; [facility] Plavix 75 MG Oral Tablet 12/09/2022 Provider: Diagnosis: Last Documented On 3 11:37AM By Samia Blanco ; [facility] Jardiance 25 MG Oral Tablet 12/09/2022 Provider: Diagnosis: Last Documented On 3 11:37AM By Samia Blanco ; [facility] Ozempic (0.25 or 0.5 MG/DOSE ) 2 MG/1.5ML Subcutaneous Solution Pen-injector 12/09/2022 Provider: Diagnosis: Last Documented On 3 11:38AM By Samia Blanco ; [facility], [facility] Isosorbide Mononitrate ER 60 MG Oral Tablet Extended Release 24 Hour 12/09/2022 Provider: Diagnosis: Last Documented On 3 11:38AM By Samia Blanco ; [facility] Estradiol 0.1 MG/24HR Transdermal Patch Twice Weekly 0 12/09/2022 Provider: Diagnosis: Last Documented On 3 11:38AM By Samia Blanco ; [facility] Progesterone 100 MG Oral Capsule 12/09/2022 Provider : Diagnosis: Last Documented On 3 11:39AM By Samia Blanco ; [facility], [facility] Medications Administered Includes: Administered Medications from this encounter No Administered Medications Recorded Vital Signs Includes: Vital Signs from this encounter Vital Name 06/27/2016 09:40A Height (in) 60 Weight (lb) 113 Body Mass Index (kg/m2) 22.1 Body Surface Area (m2) 1.5 Note: aco Last Documented: On 06/27/2016 9:40AM ; [facility], [facility] Results Includes: Results discussed during this encounter No Results Recorded For Specified Dates History of Present Illness Includes: History of Present Illness from this encounter OLIVIA Atwood is a 51 year old female. - Symptoms neck, low back pain. - Medication list reviewed. - Previous history of chronic pain - Sharp pain Symptoms - Stabbing - Pain is constant (100% of the time) - Pain is occasional (25% of the time) - Pain is dull, aching Previous Treatment: [facility] Medications used for this condition: Ibuprofen Follow-up for her back pain, she is a central 5-1 disc herniation. She underwent 2 epidural steroid injections and she says she is feeling much better, her pain level is 2 out of 10. Growing complaints as a constant pain right in her right buttock she was told this might be her sacroiliac joint. She said it still occasional Social History Description Last Updated Alcohol use 06/27/2016 Last Documented On 7 9:08AM ; [facility], [facility] Caffeine use 06/27/2016 Last Documented On 7 9:08AM ; [facility], [facility] Exercising regularly 06/27/2016 Last Documented On 7 9:08AM ; [facility], [facility] No tobacco use 06/27/2016 Last Documented On 7 9:08AM ; [facility], [facility] Not a current smoker 06/27/2016 Last Documented On 7 9:08AM ; [facility], [facility] Not using drugs 06/27/2016 Last Documented On 7 9:08AM ; [facility], [facility] Recent change in diet 06/27/2016 Last Documented On 7 9:08AM ; [facility], [facility] Smoking status : Never smoker 06/27/2016 Last Documented On 7 9:08AM ; [facility], [facility] Procedures and Surgical History Includes: Procedures from this encounter Procedures Code Diagnosis Performing Provider Service L ocation Service Date Clinical summary provided to patient Last Documented On 7 9:39AM ; [facility], [facility] history of an X-ray was performed 02/2016 [facility] [id number] Last Documented On 7 9:39AM ; [facility] history of an MRI was performed 2011 [facility] [address] Last Documented On 7 9:39AM ; [facility], [facility] Medical History Includes: Medical History addressed during this encounter Description Last Updated high cholestorol 06/27/2016 Last Documented On 7 9:08AM ; [facility] Past surgical history non-contributory 0 06/27/2016 Last Documented On 7 9:08AM ; [facility] A recent immunization for pneumococcal p neumonia 06/27/2016 Last Documented On 7 9:08AM ; [facility] History of diabetes mellitus 06/27/2016 Last Documented On 7 9:08AM ; [facility] History of diverticulitis of colon 06/27 Last Documented On 7 9:08AM ; [facility] History of heart disease 06/27/2016 Last Documented On 7 9:08AM ; [facility] Intermittent hypertension 06/27/2016 Last Documented On 7 9:08AM ; [facility] Family History Includes: Family History addressed during this encounter Description Last Updated Paternal history of stroke 06/27/2016 Last Documented On 7 9:08AM ; [facility] Family history of diabetes mellitus 06/2016 Last Documented On 7 9:08AM ; [facility], [facility] Family history of heart disease 06/27/19 17 Last Documented On 7 9:08AM ; [facility] Family history of hypertension 7 Last Documented On 7 9:08AM ; [facility], [facility] Family history of osteoporosis 7 Last Documented On 7 9:08AM ; [facility], [facility] Review of Systems Includes: Review of Systems from this encounter Systemic: Feeling tired (fatigue). No recent weight loss and no recent weight gain. No edema. Head: Headache. No sinus pain. Eyes: Vision problems. No vision problems and no glaucomatous visual field defect. Otolaryngeal: No hearing loss and no tinnitus. No nasal symptoms. Cardiovascular: No chest pain or discomfort and no palpitations. Pulmonary: No daytime asthma symptoms, no cough, and no chronic cough. No wheezing. Gastrointestinal: No heartburn and no abdominal pain. Endocrine: Hot flashes and muscle weakness. Hematologic: No easy bleeding and no tendency for easy bruising. Musculoskeletal: Lower back pain. No soft tissue swelling and no localized joint pain. Neurological: No dizziness and no convulsions. Numbness. Psychological: No anxiety, no emotional lability, no depression, and no insomnia. Not crying for no reason. Skin: No dry skin, no rash, and no ulcers. Allergic and Immunologic: Complaint of seasonal allergic reaction. Mental Status Includes: Mental Status from this encounter Description No anxiety Functional Status Includes: Functional Status from this encounter No Functional Status Recorded Physical Exam Includes: Physical Exam from this encounter Allergies Includes: Active Allergies No Known Allergies Encounters Encounter Provider Location Date Check-In Time Check- Out Time Diagnosis Follow Up Dave Crowley MD [facility] 7 9:36AM 9:59AM Insurance Includes: Active Insurance Policies Plan Name Member ID Group # Subscriber Relationship Effect gilda Dates 1 - [facility] [id number] Gloria Man - Unknown 2 - [facility] [id number] Gloria Man 05/26/2022 - Unknown Clinical Notes Includes: Clinical Notes from this encounter No Clinical Notes Recorded
--- OUTSIDE RECORDS SUMMARY | 2023-10-01 13:58 | XMS_ITS ---
Author Name Unknown Address [address] [place] [address] Phone Organization [facility] Address [address] [place] [address] Phone Care Team Providers Care Import Coordinator Name Role Phone Dave Crowley MD Unavailable [phone] Danelle Winchester Primary Care Provider [phone] Problems Includes: Active, inactive, and resolved Problems All Visits Onset Date Resolved Date Provider Condition S tatus Joint Pain in the Right Hip 03/12/2023 Sukhi Leigh PA-C Active Last Documented On 3 10:15AM ; [facility] Lower Back Pain 12/09/2022 Sukhi Leigh PA-C A ctive Last Documented On 3 10:37AM ; [facility] Plan of Treatment Pending Tests Order Diagnosis Results Due Ordering P rovider Radiology - MRI MRI Lumbar Spine Low back pain, unspecified 12/23/22 Sukhi Leigh PA-C Last Documented On 3 11:53AM ; [facility] Assessments Includes: Assessments for all patient encounters No Assessments Recorded Medical Equipment - Implanted Devices Includes: Current and historical Devices No Medical Equipment Recorded Medications Includes: Current and historical Medications Current Medications (continue as prescribed) Repatha SureClick 140 MG/ML Subcutaneous Solution Auto-injector 03/10/2023 Provider: HERNANDEZ BOWERS MD Diagnosis: Last Documented On 3 10:21AM By Nakita Low ; [facility] Metoprolol Succinate ER 100 MG Oral Tablet Extended Release 24 Hour 12/09/2022 Provider: Diagnosis: Last Documented On 3 11:37AM By Samia Blanco ; [facility], [facility] Aspir-Low 81 MG Oral Tablet Delayed Release 12/09/2022 Provider: Diagnosis: Last Documented On 3 11:37AM By Samia Blanco ; [facility] Lisinopril 20 MG Oral Tablet 12/09/2022 Provider: Diagnosis: Last Documented On 3 11:37AM By Samia Blanco ; [facility] Plavix 75 MG Oral Tablet 12/09/2022 Provider: Diagnosis: Last Documented On 3 11:37AM By Samia Blanco ; [facility] Jardiance 25 MG Oral Tablet 12/09/2022 Provider: Diagnosis: Last Documented On 3 11:37AM By Samia Blanco ; [facility] Ozempic (0.25 or 0.5 MG/DOSE ) 2 MG/1.5ML Subcutaneous Solution Pen-injector 12/09/2022 Provider: Diagnosis: Last Documented On 3 11:38AM By Samia Blanco ; [facility] Isosorbide Mononitrate ER 60 MG Oral Tablet Extended Release 24 Hour 12/09/2022 Provider: Diagnosis: Last Documented On 3 11:38AM By Samia Blanco ; [facility] Estradiol 0.1 MG/24HR Transdermal Patch Twice Weekly 0 12/09/2022 Provider: Diagnosis: Last Documented On 3 11:38AM By Samia Blanco ; [facility] Progesterone 100 MG Oral Capsule 12/09/2022 Provider : Diagnosis: Last Documented On 3 11:39AM By Samia Blanco ; [facility] Past Medications on file Lisinopril 2.5 MG Tablet 03/29/2016 - 12/09/2022 Provi pauly: Diagnosis: Last Documented On 3 11:39AM By Samia Blanco ; [facility] PROzac 20 MG Capsule, conventional 03/29/2016 - 2022 Provider: Diagnosis: Last Documented On 3 11:39AM By Samia Blanco ; [facility] PA Vitamin D-3 1000 UNIT Tablet 03/29/2016 - 3 Provider: Diagnosis: Last Documented On 3 11:39AM By Samia Blanco ; [facility], [facility] Fenofibrate 120 MG Tablet 03/29/2016 - 12/09/2022 Prov ider: Diagnosis: Last Documented On 3 11:39AM By Samia Blanco ; [facility], [facility] Aspir-Low 81 MG Tablet, enteric coated 03/29/2016 - Provider: Diagnosis: Last Documented On 3 11:39AM By Samia Blanco ; [facility], [facility] Biotin 10 MG Tablet 03/29/2016 - 12/09/2022 Provider: Diagnosis: Last Documented On 3 11:39AM By Samia Blanco ; [facility], [facility] Ibuprofen 800 MG Tablet 03/29/2016 - 12/09/2022 Provid er: Diagnosis: Last Documented On 3 11:39AM By Samia Blanco ; [facility], [facility] Invokana 100 MG Tablet 03/29/2016 - 12/09/2022 Provide r: Diagnosis: Last Documented On 3 11:39AM By Samia Blanco ; [facility], [facility] Medications Administered Includes: Administered Medications in patient's chart No Administered Medications Recorded Vital Signs Includes: Vital Signs from 09/30/2022 through 10/01/2023 Vital Name 03/12/2023 10:17A 12/26/2022 01:04P 12/09 10:38A Height (in) 60 60 60 Weight (lb) 100 100 100 Body Mass Index 19.5 19.5 19.5 Body Surface Area 1.4 1.4 1.4 Note: lc AM mg Last Documented: On 03/12/2023 10:18A M ; [facility] On 12/26/2022 1:04PM ; [facility] On 12/09/2022 10:56AM ; [facility] Results Includes: Results from 09/30/2022 through 10/01/2023 No Results Recorded For Specified Dates History of Present Illness History of Present Illness not supported for this document type No History of Present Illness Recorded Social History Description Last Updated Tobacco non-user 12/09/2022 Last Documented On 3 12:07PM ; [facility] No recent change in diet 12/09/2022 Last Documented On 3 12:07PM ; [facility], [facility] Not a current smoker. 12/09/2022 Last Documented On 3 12:07PM ; [facility] Not using alcohol 12/09/2022 Last Documented On 3 12:07PM ; [facility] Caffeine use 06/27/2016 Last Documented On 7 9:08AM ; [facility] Exercising regularly 06/27/2016 Last Documented On 7 9:08AM ; [facility] No tobacco use 06/27/2016 Last Documented On 7 9:08AM ; [facility] Not a current smoker 06/27/2016 Last Documented On 7 9:08AM ; [facility] Not using drugs 06/27/2016 Last Documented On 7 9:08AM ; [facility] Recent change in diet 06/27/2016 Last Documented On 7 9:08AM ; [facility] Smoking status : Never smoker 06/27/2016 Last Documented On 7 9:08AM ; [facility] Procedures and Surgical History Includes: Procedures from 09/30/2022 through 10/01/2023 Procedures Code Diagnosis Performing Provider Service Location Service Date X-RAY EXAM OF NECK SPINE 2 VIEWS 39553 Other intervertebral disc degeneration, lumbar region, Pain in left hip, Cervicalgia Sukhi Leigh PA-C [facility] 03/12/2023 Last Documented On 3 5:15AM ; [facility] MRI LUMBAR SPINE W/O DYE 41977 Low back pain, unspecified Dave Crowley MD [facility] 12/18/2022 Last Documented On 3 8:51AM ; [facility] PELVIS w/ 2-3 VIEW HIP (RIGHT) 73713 Other bursitis of hip, right hip Sukhi Leigh PA-C [facility] 12/09/2022 Last Documented On 3 2:48PM ; [facility] Surgical History Last Updated History of heart surgery 12/09/2022 Last Documented On 3 12:07PM ; [facility] Medical History Includes: Medical History in patient's chart Description Last Updated high cholestorol 12/09/2022 Last Documented On 3 12:07PM ; [facility] A recent immunization for pneumococcal p neumonia 06/27/2016 Last Documented On 7 9:08AM ; [facility] History of diabetes mellitus 06/27/2016 Last Documented On 7 9:08AM ; [facility] History of diverticulitis of colon 06/27 Last Documented On 7 9:08AM ; [facility] History of heart disease 06/27/2016 Last Documented On 7 9:08AM ; [facility], [facility] Intermittent hypertension 06/27/2016 Last Documented On 7 9:08AM ; [facility] Family History Includes: Family History in patient's chart Description Last Updated Diabetes mellitus 12/09/2022 Last Documented On 3 12:07PM ; [facility], [facility] Paternal history of stroke 06/27/2016 Last Documented On 7 9:08AM ; [facility] Family history of diabetes mellitus 06/2016 Last Documented On 7 9:08AM ; [facility] Family history of heart disease 06/27/19 17 Last Documented On 7 9:08AM ; [facility] Family history of hypertension 7 Last Documented On 7 9:08AM ; [facility] Family history of osteoporosis 7 Last Documented On 7 9:08AM ; [facility] Review of Systems Review of Systems not supported for this document type No Review of Systems Recorded Mental Status Description No anxiety Functional Status No Functional Status Recorded Physical Exam Physical Exam not supported for this document type No Physical Exam Recorded Allergies Includes: Active, inactive, and resolved Allergies No Known Allergies Encounters Includes: Encounters from 09/30/2022 through 10/01/2023 Encounter Provider Location Date Check-In Time Check-Out Time Diagnosis Follow Up Sukhi Leigh PA-C [facility] 03/12/20 10:09AM 11:28AM Follow Up Sukhi Leigh PA-C [facility] 12/27/19 12:52PM 1:27PM MRI [facility] 12/19/19 11:42AM 12:18PM Physician Specified Sukhi Leigh PA-C [facility] 12/10/19 10:51AM 11:30AM Insurance Includes: Active Insurance Policies Plan Name Member ID Group # Subscriber Relationship Effect gilda Dates 1 - R [id number] Gloria Atwood Self - Unknown 2 - [facility] [id number] Gloria Atwood Self 05/26/2022 - Unknown Clinical Notes Includes: Signed Clinical Notes starting from 05/09/2022 * Progress note Date Encounter Last Documented by 03/12/2023 Follow Up Last documented on 03/12/2023; 12:52 PM, Sukhi Pabon; [facility], [facility] Active Problems & Conditions - Joint Pain [...] documented. Care Team - Danelle Winchester - ASSISTANT HVAC MECHANIC * Progress note Date Encounter Last Documented by 12/26/2022 Follow Up Last documented on 12/26/2022; 1:50 PM, Sukhi Leigh PA-C; [facility], [facility] Active Problems & Conditions - Lower Back Pain Chief Complaint The Chief Complaint is: Low back pain. Referred Here Referred by Danelle Winchester. History of Present Illness Gloria Atwood is a 57 year old female. - Allergy list reviewed - Problem list reviewed - Medication list reviewed - Medication list reviewed Patient is here today for follow-up of her lumbar spine MRI. Most this pain seems to be centralized into her lower back she also complains of this catching sensation in the right hip area she states today that she is doing okay but just notices that she gets this catching sensation sometimes into the right hip area and she can make her hip feel little bit better when she does some exercising in the water. She was seen in 2016 and had a central disc herniation at L5-S1. This pain does not radiate down the legs. No bowel or bladder issues. Had bypass surgery earlier this year is on Plavix and has been told she cannot go off any anticoagulant medicine until she is about a year out from the surgery Current Medication - Aspir-Low 81 MG Oral [...] MG Oral Capsule 0 days, 0 refills Past Medical/Surgical History Reported: [...] allergic reaction. Physical Findings - Vitals taken 12/26/2022 01:04 pm AM Height 60 in Weight 100 lbs Body Mass Index 19.5 kg/m2 Body Surface Area 1.4 m2 No Tenderness today over the greater trochanter could not reproduce any significant groin pain with hip internal or external rotation but does have some pain with right hip internal rotation negative Stinchfield. She has 5 out of 5 EHL gastroc quadricep tibialis anterior strength bilaterally negative straight leg raise bilaterally 2+ Achilles and patellar reflexes bilaterally He does have a palpable mobile that probably is a little cyst or lipoma on the right side of the low back Tests Lumbar spine x-rays 2 view shows degenerative disc at L4-5 L5-S1 but more pronounced at L5-S1 2 views of the right hip were negative 12/09/22 MRI of the lumbar spine just shows a central disc herniation at L5-S1 no significant nerve compression Assessment Lumbar DDD right hip pain possible labrum issue Previous Tests Imaging: X-Ray: An X-ray was performed 02/2016 [facility]. MRI Scan: An MRI was performed 2011 [facility]. Plan Patient was seen by myself Sukhi Leigh PA-C. Patient will follow up as needed with me for now options down the line if this would get worse with his hip area we can consider cortisone injection for the right hip intra-articular for her back we could always try an epidural injection but she has to be able to go off the Plavix for that. She was unable to go off of that at least until next June. She will call and let us know how she would like to proceed if this gets worse. For now she feels is manageable Notes This dictation was done with voice recognition software and may contain errors and omissions. Practice Management Use of tobacco assessment performed Review of medications documented. Care Team - Danelle Winchester - ASSISTANT HVAC MECHANIC * Progress note Date Encounter Last Documented by 12/09/2022 Physician Specified Last matilde darius on 12/09/2022; 12:07 PM, Sukhi Leigh PA-C; [facility], [facility] Active Problems & Conditions - Lower Back Pain Chief Complaint The Chief Complaint is: Low back pain. Referred Here Referred by Danelle Winchester. History of Present Illness Gloria Atwood is a 57 year old female. - Symptoms Ice makes the pain better, sitting for long periods, lifting, and bending makes the pain worse. - Allergy list reviewed - Problem list reviewed - Medication list reviewed - Medication list reviewed - Previous history of new onset pain 2016 Injury is not work related or an automotive accident - Sudden onset - Pain is constant (100% of the time) catching - Patient pain level from 1-10: 8 - Yes, previous treatment. - History of Physical Therapy - History of Home Exercise - History of Chiropractic - History of Injections Patient is here today complaints of lower back pain we last saw her in 2016 she had an L5-S1 central disc herniation. She continues to complain of some lower back pain and has been going to the chiropractor for years she is done physical therapy she has done yoga. In June of this year she underwent double bypass surgery is on Plavix. She is complaining of some right-sided lower back pain right hip pain she did see a chiropractor who she says popped her hip and is kind of bothered her since then also. She not really complaining of any significant groin pain with that she did have an IM steroid injection by her family physician which did help some. No radicular symptoms down her legs. Current Medication - Aspir-Low 81 MG Oral [...] MG Oral Capsule 0 days, 0 refills Past Medical/Surgical History Reported: Medical: Intermittent hypertension. Immunization History: Recent immunization for pneumococcal pneumonia. Diagnoses: Heart disease. Diverticulitis of colon. Diabetes mellitus Past surgical history non-contributory. High cholestorol. Surgical: - Heart surgery Social [...] Allergies Family History Heart disease Diabetes mellitus Diabetes mellitus Review Of Systems Systemic: Not feeling tired, no recent weight loss, and no recent weight gain. No edema. Head: No headache and no sinus pain. Eyes: No vision problems, no vision problems, and no glaucomatous visual field defect. No [...] allergic reaction. Physical Findings - Vitals taken 12/09/2022 10:38 am mg Height 60 in Weight 100 lbs Body Mass Index 19.5 kg/m2 Body Surface Area 1.4 m2 She does have some pain over the right hip greater trochanter could not reproduce any significant groin pain with hip internal or external rotation but does have some pain with right hip internal rotation negative Stinchfield. She has 5 out of 5 EHL gastroc quadricep tibialis anterior strength bilaterally negative straight leg raise bilaterally 2+ Achilles and patellar reflexes bilaterally He does have a palpable mobile that probably is a little cyst or lipoma on the right side of the low back Tests Lumbar spine x-rays 2 view shows degenerative disc at L4-5 L5-S1 but more pronounced at L5-S1 2 views of the right hip were negative 12/09/22 Assessment Right hip trochanteric bursitis and lumbar DDD Previous Tests Imaging: X-Ray: An X-ray was performed 02/2016 [facility]. MRI Scan: An MRI was performed 2011 [facility]. Plan StartCited - Low back pain, unspecified Radiology/MRI: MRI Lumbar Spine EndCited Patient was seen by myself Sukhi Leigh PA-C. Patient will follow up after lumbar spine MRI with myself and Dr. Crowley I did tell her that she should probably speak with a student services coordinator to see if she is able to go off Plavix at some point but she may not be able to since she just had surgery in June. She does have some trochanteric bursitis also of the right hip Notes This dictation was done with voice recognition software and may contain errors and omissions. Practice Management Use of tobacco assessment performed. Care Team - Danelle Winchester - ASSISTANT HVAC MECHANIC
--- OUTSIDE RECORDS SUMMARY | 2023-10-01 13:58 | XMS_ITS | Clinical Summary ---
Author Name Unknown Address [address] [place] [address] Phone Organization [facility] Address [address] [place] [address] Phone Care Team Providers Care Induction Coordination Power Engineer Name Role Phone Dave Crowley MD Unavailable [phone] Danelle Winchester Primary Care Provider [phone] Reason for Visit and Chief Complaint The Chief Complaint is: Low back pain Problems Includes: Problems addressed during this encounter and other active Problems Current Visit Onset Date Resolved Date Provider Conditio n Status Lower Back Pain 12/09/2022 Sukhi Leigh PA-C A ctive Last Documented On 3 10:37AM ; [facility], [facility] Past Visits Onset Date Resolved Date Provider Condition Status Joint Pain in the Right Hip 03/12/2023 Sukhi Leigh PA-C Active Last Documented On 3 10:15AM ; [facility], [facility] Plan of Treatment Patient was seen by myself Sukhi Leigh PA-C. Patient will follow up after lumbar spine MRI with myself and Dr. Crowley I did tell her that she should probably speak with a runstitching machine operator to see if she is able to go off Plavix at some point but she may not be able to since she just had surgery in June. She does have some trochanteric bursitis also of the right hip - Last Documented On 12/09/2022 12:07PM ; [facility], [facility] Pending Tests Order Diagnosis Results Due Ordering P rovider Radiology - MRI MRI Lumbar Spine Low back pain, unspecified 12/23/22 Sukhi Leigh PA-C Last Documented On 3 11:53AM ; [facility] Assessments Includes: Assessments from this encounter Findings Right hip trochanteric bursitis and lumbar DDD - Last Documented On 12/09/2022 12:07PM ; [facility] Medical Equipment - Implanted Devices Includes: Current Devices No Medical Equipment Recorded Medications Includes: Medications discussed during this encounter and other current Medications Discontinued / Stopped on this date on 03/29/2016 Lisinopril 2.5 MG Tablet Provider: Diagnosis: Last Documented On 3 11:39AM By Samia Blanco ; [facility] PROzac 20 MG Capsule, conventional Provid er: Diagnosis: Last Documented On 3 11:39AM By Samia Blanco ; [facility] PA Vitamin D-3 1000 UNIT Tablet Provider: Diagnosis: Last Documented On 3 11:39AM By Samia Blanco ; [facility] Fenofibrate 120 MG Tablet Provider: Diagnosis: Last Documented On 3 11:39AM By Samia Blanco ; [facility] Aspir-Low 81 MG Tablet, enteric coated Pr ovider: Diagnosis: Last Documented On 3 11:39AM By Samia Blanco ; [facility] Biotin 10 MG Tablet Provider: Diagnosis: Last Documented On 3 11:39AM By Samia Blanco ; [facility] Ibuprofen 800 MG Tablet Provider: Diagnosis: Last Documented On 3 11:39AM By Samia Blanco ; [facility] Invokana 100 MG Tablet Provider: Diagnosis: Last Documented On 3 11:39AM By Samia Blanco ; [facility] Current Medications (continue as prescribed) Repatha SureClick 140 MG/ML Subcutaneous Solution Auto-injector 03/10/2023 Provider: HERNANDEZ BOWERS MD Diagnosis: Last Documented On 3 10:21AM By Nakita Low ; [facility] Metoprolol Succinate ER 100 MG Oral Tablet Extended Release 24 Hour 12/09/2022 Provider: Diagnosis: Last Documented On 3 11:37AM By Samia Blanco ; [facility] Aspir-Low 81 MG Oral Tablet Delayed Release 12/09/2022 Provider: Diagnosis: Last Documented On 3 11:37AM By Samia Blanco ; [facility], [facility] Lisinopril 20 MG Oral Tablet 12/09/2022 Provider: Diagnosis: Last Documented On 3 11:37AM By Samia Blanco ; [facility] Plavix 75 MG Oral Tablet 12/09/2022 Provider: Diagnosis: Last Documented On 3 11:37AM By Samia Blanco ; [facility] Jardiance 25 MG Oral Tablet 12/09/2022 Provider: Diagnosis: Last Documented On 3 11:37AM By Samia Blanco ; [facility] Ozempic (0.25 or 0.5 MG/DOSE ) 2 MG/1.5ML Subcutaneous Solution Pen-injector 12/09/2022 Provider: Diagnosis: Last Documented On 3 11:38AM By [facility] Isosorbide Mononitrate ER 60 MG Oral Tablet Extended Release 24 Hour 12/09/2022 Provider: Diagnosis: Last Documented On 3 11:38AM By Samia Blanco ; [facility] Estradiol 0.1 MG/24HR Transdermal Patch Twice Weekly 0 12/09/2022 Provider: Diagnosis: Last Documented On 3 11:38AM By Samia Blanco ; [facility] Progesterone 100 MG Oral Capsule 12/09/2022 Provider : Diagnosis: Last Documented On 3 11:39AM By Samia Blanco ; [facility] Medications Administered Includes: Administered Medications from this encounter No Administered Medications Recorded Vital Signs Includes: Vital Signs from this encounter Vital Name 12/09/2022 10:38A Height (in) 60 Weight (lb) 100 Body Mass Index 19.5 Body Surface Area 1.4 Note: mg Last Documented: On 12/09/2022 10:56A M ; [facility] Results Includes: Results discussed during this encounter No Results Recorded For Specified Dates History of Present Illness Includes: History of Present Illness from this encounter OLIVIA Atwood is a 57 year old female. [...] back pain we last saw her in 2015 she had an L5-S1 central disc herniation. [...] some. No radicular symptoms down her legs. Social History Description Last Updated Tobacco non-user 12/09/2022 Last Documented On 3 12:07PM ; [facility], [facility] No recent change in diet 12/09/2022 Last Documented On 3 12:07PM ; [facility], [facility] Not a current smoker. 12/09/2022 Last Documented On 3 12:07PM ; [facility], [facility] Not using alcohol 12/09/2022 Last Documented On 3 12:07PM ; [facility], [facility] Caffeine use 06/27/2016 Last Documented On 3 10:37AM ; [facility], [facility] Exercising regularly 06/27/2016 Last Documented On 3 10:37AM ; [facility], [facility] No tobacco use 06/27/2016 Last Documented On 3 10:37AM ; [facility], [facility] Not a current smoker 06/27/2016 Last Documented On 3 10:37AM ; [facility], [facility] Not using drugs 06/27/2016 Last Documented On 3 10:37AM ; [facility] Recent change in diet 06/27/2016 Last Documented On 3 10:37AM ; [facility], [facility] Smoking status : Never smoker 06/27/2016 Last Documented On 3 10:37AM ; [facility], [facility] Procedures and Surgical History Includes: Procedures from this encounter Procedures Code Diagnosis Performing Provider Service Location Service Date PELVIS w/ 2-3 VIEW HIP (RIGHT) 22085 Other bursitis of hip, right hip Sukhi Leigh PA-C [facility] 12/09/2022 Last Documented On 3 2:48PM ; [facility], [facility] use of tobacco assessment performed 1000F Last Documented On 3 11:41AM ; [facility], [facility] history of an X-ray was performed 02/2016 [facility] [id number] Last Documented On 3 10:38AM ; [facility], [facility] history of an MRI was performed 2011 [facility] [id number] Last Documented On 3 10:38AM ; [facility], [facility] Surgical History Last Updated History of heart surgery 12/09/2022 Last Documented On 3 12:07PM ; [facility], [facility] Medical History Includes: Medical History addressed during this encounter Description Last Updated high cholestorol 12/09/2022 Last Documented On 3 12:07PM ; [facility], [facility] Past surgical history non-contributory 0 12/09/2022 Last Documented On 3 10:37AM ; [facility], [facility] A recent immunization for pneumococcal p neumonia 06/27/2016 Last Documented On 3 10:37AM ; [facility], [facility] History of diabetes mellitus 06/27/2016 Last Documented On 3 10:37AM ; [facility], [facility] History of diverticulitis of colon 06/27 Last Documented On 3 10:37AM ; [facility], [facility] History of heart disease 06/27/2016 Last Documented On 3 10:37AM ; [facility] Intermittent hypertension 06/27/2016 Last Documented On 3 10:37AM ; [facility] Family History Includes: Family History addressed during this encounter Description Last Updated Diabetes mellitus 12/09/2022 Last Documented On 3 12:07PM ; [facility] Family history of diabetes mellitus 06/2016 Last Documented On 3 10:37AM ; [facility] Family history of heart disease 06/27/19 17 Last Documented On 3 10:37AM ; [facility] Review of Systems Includes: Review of Systems [...] Encounters Encounter Provider Location Date Check-In Time Check-Out Time Diagnosis Physician Specified Sukhi Leigh PA-C [facility] 12/10/19 23 10:51AM 11:30AM Insurance Includes: Active Insurance Policies Plan Name Member ID Group # Subscriber Relationship Effect gilda Dates 1 - [employer] [id number] Gloria Atwood Self - Unknown 2 - [facility] [id number] Gloria Atwood Self 05/26/2022 - Unknown Clinical Notes Includes: Clinical Notes from this encounter * Progress note Date Encounter Last Documented by 12/09/2022 Physician Specified Last documealejandra mccoy on 12/09/2022; 12:07 PM, Sukhi Leigh PA-C; [facility], [facility] Active Problems & Conditions - Lower Back [...] back pain we last saw her in 2015 she had an L5-S1 central disc herniation. [...] Imaging: X-Ray: An X-ray was performed 02/2016 [facility]. MRI Scan: An MRI was performed 2011 [facility]. Plan StartCited - Low back pain, unspecified Radiology/MRI: MRI Lumbar Spine EndCited Patient was seen by myself Sukhi Leigh PA-C. Patient will follow up after lumbar spine MRI with myself and Dr. Crowley I did tell her that she should probably speak with a runstitching machine operator to see if she is able to [...] performed. Care Team - Danelle Winchester - DIECAST MACHINE OPERATOR
--- OUTSIDE RECORDS SUMMARY | 2023-10-01 13:58 | XMS_ITS | Clinical Summary ---
Author Name Unknown Address [address] [place] [address] Phone Organization [facility] Address [address] [place] [address] Phone Care Team Providers Care General Worker Name Role Phone Dave Crowley MD Unavailable [phone] Danelle Winchester Primary Care Provider [phone] Reason for Visit and Chief Complaint The Chief Complaint is: Low back pain Problems Includes: Problems addressed during this encounter and other active Problems Current Visit Onset Date Resolved Date Provider Conditio n Status Lower Back Pain 12/09/2022 Sukhi Leigh PA-C A ctive Last Documented On 3 10:37AM ; [facility], [facility] Past Visits Onset Date Resolved Date Provider Condition Status Joint Pain in the Right Hip 03/12/2023 Sukhi Leigh PA-C Active Last Documented On 3 10:15AM ; [facility], [facility] Plan of Treatment Patient was [...] worse. For now she feels is manageable - Last Documented On 12/26/2022 1:50PM ; [facility], [facility] Pending Tests Order Diagnosis [facility] - MRI MRI Lumbar Spine Low back pain, unspecified 12/23/22 Sukhi Leigh PA-C Last Documented On 3 11:53AM ; [facility], [facility] Assessments Includes: Assessments from this encounter Findings Lumbar DDD right hip pain possible labrum issue - Last Documented On 12/26/2022 1:50PM ; [facility], [facility] Medical Equipment - Implanted Devices Includes: Current Devices No Medical Equipment Recorded Medications Includes: Medications discussed during this encounter and other current Medications Current Medications (continue as prescribed) Repatha SureClick 140 MG/ML Subcutaneous Solution Auto-injector 03/10/2023 Provider: HERNANDEZ BOWERS MD Diagnosis: Last Documented On 3 10:21AM By Nakita Low ; [facility], [facility] Metoprolol Succinate ER 100 MG Oral Tablet Extended Release 24 Hour 12/09/2022 Provider: Diagnosis: Last Documented On 3 11:37AM By Samia Blanco ; [facility], [facility] Aspir-Low 81 MG Oral Tablet Delayed Release 12/09/2022 Provider: Diagnosis: Last Documented On 3 11:37AM By Samia Blanco ; [facility], [facility] Lisinopril 20 MG Oral Tablet 12/09/2022 Provider: Diagnosis: Last Documented On 3 11:37AM By Samia Blanco ; [facility], [facility] Plavix 75 MG Oral Tablet 12/09/2022 Provider: Diagnosis: Last Documented On 3 11:37AM By Samia Blanco ; [facility], [facility] Jardiance 25 MG Oral Tablet 12/09/2022 Provider: Diagnosis: Last Documented On 3 11:37AM By Samia Blanco ; [facility], [facility] Ozempic (0.25 or 0.5 MG/DOSE ) 2 MG/1.5ML Subcutaneous Solution Pen-injector 12/09/2022 Provider: Diagnosis: Last Documented On 3 11:38AM By Samia Blanco ; [facility] Isosorbide Mononitrate ER 60 MG Oral Tablet Extended Release 24 Hour 12/09/2022 Provider: Diagnosis: Last Documented On 3 11:38AM By Samia Blanco ; [facility], [facility] Estradiol 0.1 MG/24HR Transdermal Patch Twice Weekly 0 12/09/2022 Provider: Diagnosis: Last Documented On 3 11:38AM By DENISE Abrams Progesterone 100 MG Oral Capsule 12/09/2022 Provider : Diagnosis: Last Documented On 3 11:39AM By Samia Blanco ; [facility] Medications Administered Includes: Administered Medications from this encounter No Administered Medications Recorded Vital Signs Includes: Vital Signs from this encounter Vital Name 12/26/2022 01:04P Height (in) 60 Weight (lb) 100 Body Mass Index 19.5 Body Surface Area 1.4 Note: AM Last Documented: On 12/26/2022 1:04PM ; [facility] Results Includes: Results discussed during this encounter [...] about a year out from the surgery Social History Description Last Updated Tobacco non-user 12/09/2022 Last Documented On 3 1:02PM ; [facility] No recent change in diet 12/09/2022 Last Documented On 3 1:02PM ; [facility] Not a current smoker. 12/09/2022 Last Documented On 3 1:02PM ; [facility] Not using alcohol 12/09/2022 Last Documented On 3 1:02PM ; [facility] Caffeine use 06/27/2016 Last Documented On 3 1:02PM ; [facility] Exercising regularly 06/27/2016 Last Documented On 3 1:02PM ; [facility] No tobacco use 06/27/2016 Last Documented On 3 1:02PM ; [facility] Not a current smoker 06/27/2016 Last Documented On 3 1:02PM ; [facility] Not using drugs 06/27/2016 Last Documented On 3 1:02PM ; [facility] Recent change in diet 06/27/2016 Last Documented On 3 1:02PM ; [facility] Smoking status : Never smoker 06/27/2016 Last Documented On 3 1:02PM ; [facility] Procedures and Surgical History Includes: Procedures from this encounter Procedures Code Diagnosis Performing Provider Service L ocation Service Date use of tobacco assessment performed 1000F Last Documented On 3 1:02PM ; [facility] review of medications documented 1160F Last Documented On 3 1:04PM ; [facility] history of an X-ray was performed 02/2016 [facility] [id number] Last Documented On 3 1:02PM ; [facility] history of an MRI was performed 2011 [facility] [id number] Last Documented On 3 1:02PM ; [facility] Surgical History Last Updated History of heart surgery 12/09/2022 Last Documented On 3 1:02PM ; [facility] Medical History Includes: Medical History addressed during this encounter Description Last Updated high cholestorol 12/09/2022 Last Documented On 3 1:02PM ; [facility] A recent immunization for pneumococcal p neumonia 06/27/2016 Last Documented On 3 1:02PM ; [facility] History of diabetes mellitus 06/27/2016 Last Documented On 3 1:02PM ; [facility] History of diverticulitis of colon 06/27 Last Documented On 3 1:02PM ; [facility], [facility] History of heart disease 06/27/2016 Last Documented On 3 1:02PM ; [facility], [facility] Intermittent hypertension 06/27/2016 Last Documented On 3 1:02PM ; [facility], [facility] Family History Includes: Family History addressed during this encounter Description Last Updated Diabetes mellitus 12/09/2022 Last Documented On 3 1:02PM ; [facility], [facility] Paternal history of stroke 06/27/2016 Last Documented On 3 1:02PM ; [facility], [facility] Family history of diabetes mellitus 06/2016 Last Documented On 3 1:02PM ; [facility], [facility] Family history of heart disease 06/27/19 17 Last Documented On 3 1:02PM ; [facility], [facility] Family history of hypertension 7 Last Documented On 3 1:02PM ; [facility], [facility] Family history of osteoporosis 7 Last Documented On 3 1:02PM ; [facility], [facility] Review of Systems Includes: Review [...] Time Diagnosis Follow Up Sukhi Leigh PA-C [facility] 3 12:52PM 1:27PM Insurance Includes: Active Insurance Policies Plan Name Member ID Group # Subscriber Relationship Effect gilda Dates 1 - [facility] [id number] Gloria Atwood Self - Unknown 2 - [facility] [id number] Gloria Atwood Self 05/26/2022 - Unknown Clinical Notes Includes: Clinical Notes from this encounter * Progress note Date Encounter Last Documented by 12/26/2022 Follow Up Last documented on 12/26/2022; 1:50 PM, Sukhi Leigh PA-C; [facility] Active Problems & Conditions - Lower [...] Imaging: X-Ray: An X-ray was performed 02/2016 [facility]. MRI Scan: An MRI was performed 2011 [facility]. Plan Patient was seen by myself Sukhi [...] documented. Care Team - Danelle Winchester - FLIGHT TEST SUPERVISOR
--- OUTSIDE RECORDS SUMMARY | 2023-10-01 13:58 | XMS_ITS ---
Care Plan - [facility] Created on: October 01, 2023 Gloria Atwood : 1965 Sex: Female Author Name Unknown Address [address] [place] [address] Phone Organization [facility] Address [address] [place] [address] Phone Care Team Providers Care Weed Burner Name Role Phone Dave Crowley MD Unavailable [phone] Danelle Wicnhester Primary Care Provider [phone]
--- OUTSIDE RECORDS SUMMARY | 2023-10-01 13:58 | XMS_ITS | Clinical Summary ---
Author Name Unknown Address [address] [place] [address] Phone Organization [facility] , [facility] Address [address] [place] [place] [address] Phone Care Team Providers Care Brick Handler Name Role Phone Dave Crowley MD Unavailable [phone] Danelle Winchester Primary Care Provider [phone] Reason for Visit and Chief Complaint MRI Problems Includes: Problems addressed during this encounter and other active Problems All Visits Onset Date Resolved Date Provider Condition S tatus Joint Pain in the Right Hip 03/12/2023 Sukhi Leigh PA-C Active Last Documented On 3 10:15AM ; [facility] Lower Back Pain 12/09/2022 Sukhi Leigh PA-C A ctive Last Documented On 3 10:37AM ; [facility], [facility] Plan of Treatment No Plan of Treatment Recorded Assessments Includes: Assessments from this encounter No Assessments Recorded Medical Equipment - Implanted Devices Includes: Current Devices No Medical Equipment Recorded Medications Includes: Medications discussed during this encounter and other current Medications Current Medications (continue as prescribed) Repatha SureClick 140 MG/ML Subcutaneous Solution Auto-injector 03/10/2023 Provider: HERNANDEZ BOWERS MD Diagnosis: Last Documented On 3 10:21AM By Nakita Low ; [facility], [facility] Metoprolol Succinate ER 100 MG Oral Tablet Extended Release 24 Hour 12/09/2022 Provider: Diagnosis: Last Documented On 3 11:37AM By Samia Ovalle [facility], [facility] Aspir-Low 81 MG Oral Tablet Delayed Release 12/09/2022 Provider: Diagnosis: Last Documented On 3 11:37AM By Samia Blanco ; [facility], [facility] Lisinopril 20 MG Oral Tablet 12/09/2022 Provider: Diagnosis: Last Documented On 3 11:37AM By Samia Blanco ; [facility], [facility] Plavix 75 MG Oral Tablet 12/09/2022 Provider: Diagnosis: Last Documented On 3 11:37AM By Samia Blanco ; [facility], [facility] Jardiance 25 MG Oral Tablet 12/09/2022 Provider: Diagnosis: Last Documented On 3 11:37AM By Samia Blanco ; [facility], [facility] Ozempic (0.25 or 0.5 MG/DOSE ) 2 MG/1.5ML Subcutaneous Solution Pen-injector 12/09/2022 Provider: Diagnosis: Last Documented On 3 11:38AM By Samia Blanco ; [facility], [facility] Isosorbide Mononitrate ER 60 MG Oral Tablet Extended Release 24 Hour 12/09/2022 Provider: Diagnosis: Last Documented On 3 11:38AM By Samia Blanco ; [facility], [facility] Estradiol 0.1 MG/24HR Transdermal Patch Twice Weekly 0 12/09/2022 Provider: Diagnosis: Last Documented On 3 11:38AM By Samia Blanco ; [facility], [facility] Progesterone 100 MG Oral Capsule 12/09/2022 Provider : Diagnosis: Last Documented On 3 11:39AM By Samia Blanco ; [facility], [facility] Medications Administered Includes: Administered Medications from this encounter No Administered Medications Recorded Results Includes: Results discussed during this encounter No Results Recorded For Specified Dates History of Present Illness Includes: History of Present Illness from this encounter No History of Present Illness Recorded Social History No Social History Recorded - Smoking Status Unknown Procedures and Surgical History Includes: Procedures from this encounter Procedures Code Diagnosis Performing Provider Service Location Service Date MRI LUMBAR SPINE W/O DYE 25300 Low back pain, unspecified [facility] ALESSANDRA 12/18/2022 Last Documented On 3 8:51AM ; [facility], [facility] Medical History Includes: Medical History addressed during this encounter No Medical History Recorded Family History Includes: Family History addressed during this encounter No Family History Recorded Review of Systems Includes: Review of Systems from this encounter No Review of Systems Recorded Mental Status Includes: Mental Status from this encounter No Mental Status Recorded Functional Status Includes: Functional Status from this encounter No Functional Status Recorded Physical Exam Includes: Physical Exam from this encounter No Physical Exam Recorded Allergies Includes: Active Allergies No Known Allergies Encounters Encounter Provider Location Date Check-In Time Check-Out Time Diagnosis MRI [facility] 12/18/2022 11:42AM 12:18PM Insurance Includes: Active Insurance Policies Plan Name Member ID Group # Subscriber Relationship Effect gilda Dates 1 - [facility] [id number] Gloria Man - Unknown 2 - [facility] [id number] Gloria Man 05/26/2022 - Unknown Clinical Notes Includes: Clinical Notes from this encounter No Clinical Notes Recorded
[2023-10-01 15:02] VITALS: BP 115/62; PULSE 87; RESP 18; O2SAT 97; BMI 19.5
--- NOTE | 2023-10-01 15:28 | A.OFFVIS_ITS ---
[facility] Pain Management SOAP Note Subjective:: Patient is a pleasant 58-year-old female who presents today for follow-up of lumbar epidural steroid injection L4-L5 on 09/09/2023. Today she rates her pain a 8 out of 10. Patient denies any new trauma or injury. She does state that the epidural injection did seem like it helped some however she is only rating it about 25% relief and feels like it still helping additionally however her pain really seems to be aggravated with the muscle spasms. Patient states that she has a catching sensation in and around her buttocks area that really seems to trigger almost all of her spasms and pain. Patient states that it does radiate. She describes it as an aching, throbbing sensation with sharp shooting pains. Patient states the pain does interfere with her ability perform activities of daily living such as cooking and cleaning. Patient does state that she has been given Flexeril in the past however it caused too much drowsiness that she can only take it at bedtime. Patient states she has continued [id number] medications along with heat and ice and topicals with minimal relief. Patient denies use her compounded cream however she states in the time of the spasms it really does not do much. Patient has continued massage and chiropractor therapy for longer than 12 weeks with weekly appointments of decompression and traction with no additional relief. Patient does also continue to do at home exercising and stretching between injections with minimal improvement. Patient is currently on Plavix written by Dr. Schuster. Her David has been reviewed and is appropriate. Review of Systems: General: No recent weight changes, no fever, no sleep disturbances Respiratory: No cough, no shortness of air, no recurring pulmonary infections Cardiovascular/peripheral vascular: No chest pain, no palpitations, no edema, no shortness of breath Gastrointestinal: No new onset incontinence, normal bowel movements reported Genitourinary: No new onset incontinence Musculoskeletal: Leg pain, back pain, buttocks pain Psychiatric: [Normal mood/affect] Neurological: [Denies weakness in extremities], [denies balance issues] Objective:: Physical Exam: General: Alert and oriented x3, no acute distress, pleasant and cooperative Lungs: Respirations even and unlabored, symmetrical chest expansion Eyes: PERRL Musculoskeletal: Flexion and extension of lumbar [spine] somewhat guarded secondary to pain, [antalgic gait noted] point tenderness along lower right sacrum Neurological: Speech clear, no gross sensory deficit Assessment:: Degenerative disc disease of lumbar spine with lumbar radiculopathy symptoms, bilateral hip pain, buttocks pain Plan:: Patient continues to experience significant pain in her low back/buttocks and leg area. Patient is experiencing a lot of spasms and catching sensations in her lower sacrum. Patient did have point tenderness along the right side of her lower sacrum during today's exam. I have discussed with the patient that she may benefit from a caudal epidural steroid injection. Risk and benefits were discussed with patient and she would like to proceed forward with this plan of care. I will also send in baclofen 5 mg twice daily with a 2-week supply of this medication. I have counseled the patient to discontinue all other muscle relaxers while time this medication. Patient will be scheduled for a caudal epidural under fluoroscopy. Patient has tried and failed conservative therapy. Patient has been instructed to contact the clinic with any concerns before the next appointment. Dr. Easton has reviewed this note and agrees with this plan of care. This note was dictated using voice recognition software and make contain errors or omissions. [facility] Disclaimer: The information contained in this section may have been updated after the patient was seen, as this information can be updated by other users. Medical History HTN (hypertension) History of placement of stent in LAD coronary artery Surgical History H/O spinal fusion History of open heart surgery Family History Other No significant family history Social History Smoking Status: Never smoker alcohol intake: never substance use type: denies use current occupational status: unemployed Travel in the last 8 weeks: None household members: family housing: house lives independently: Yes marital status: number of children: 2 number of grandchildren: 2 service: No fci: No pets and animals: Yes
== END 2023-10-01 23:59 | disposition home or self-care (01) ==
PROVIDERS: PCP Student in an Organized Health Care Education/Training Program; Visit Provider Nurse Practitioner Family
DX: M51.16 Intervertebral disc disorders with radiculopathy, lumbar region (principal); M25.551 Pain in right hip; M25.552 Pain in left hip; M79.18 Myalgia, other site
CPT/HCPCS: 99212; G0463

== ENCOUNTER 2023-10-28 10:06 | Day surgery (SDC) | payer OTHER, BC, SELFPAY ==
[2023-10-28 10:20] VITALS: BP 122/58; PULSE 86; RESP 18; TEMP 36.4; O2SAT 100; BMI 19.9
[2023-10-28] MEDS: LIDOCAINE 1% 5ML PF VIAL 5 ML (10:29)
[2023-10-28] MEDS: IOPAMIDOL-200 (41%);10ML VIAL 10 ML IV (10:29)
[2023-10-28 10:30] VITALS: BP 119/71; BP 128/65; PULSE 84; PULSE 85; RESP 18; O2SAT 100; O2SAT 98
[2023-10-28] MEDS: methylPREDNISolone ACETATE 80MG/ML VIAL 80 MG (10:30)
[2023-10-28 10:31] VITALS: BP 119/71; PULSE 83; RESP 18; O2SAT 100
--- NOTE | 2023-10-28 10:35 | P.PCN_ITS ---
Procedure Date: 10/28/23 Time: 10:20 Anesthesiologist:: Jose Bonds CRNA Complications:: None Pre-procedure Diagnosis:: Degenerative disc lumbar spine multilevels. Lumbar radiculopathy. Post-procedure Diagnosis:: Same. Indications for Procedure:: Patient is a very pleasant 58-year-old female comes our clinic today for a caudal epidural steroid injection. Patient did not respond very well to the L4- 5 lumbar epidural steroid injection previously. She continues with low back pain. Bilateral buttock pain. Bilateral leg pain to the knees. She rates her pain 7/10. She reports only about 25% improvement with her previous left L4-5 lumbar epidural steroid injection. Procedure Details:: Details of the procedure were explained to the patient. The patient taken to procedure room placed in the prone position on fluoroscopy table. The area over the sacrum was cleaned using chlorhexidine's cleansing solution. Using fluoroscopy guidance and a lateral position a 22-gauge 3 and half inch spinal needle was used to access the caudal epidural space with ease. Needle position was confirmed using 0.5 mL of contrast dye and a cephalad spread. After negative aspiration 6 cc of a solution containing 1 cc of 1% lidocaine, 5 cc of normal saline and 80 mg of Depo-Medrol was injected incrementally. Patient tolerated procedure without difficulty. There are no complications. Plan and Disposition:: Patient was discharged without incident.
== END 2023-10-28 10:30 | disposition home or self-care (01) ==
PROVIDERS: PCP Student in an Organized Health Care Education/Training Program; Visit Provider Nurse Anesthetist, Certified Registered
DX: M51.16 Intervertebral disc disorders with radiculopathy, lumbar region (principal)
CPT/HCPCS: 62323; J1010; Q9966

== ENCOUNTER 2023-11-06 18:00 | Outpatient (CLI) | payer OTHER, BC, SELFPAY ==
[2023-11-06 18:39] LABS: Chol/HDL Ratio 3.5 (1-3.5); Cholesterol 184 mg/dl (140-200); HDL Cholesterol 52 mg/dl (40-60); Iron 176 ug/dL (37-170)
[2023-11-06 18:50] LABS: Total Iron Binding Capacity 511 ug/dL (265-497)
[2023-11-06 18:51] LABS: Direct LDL Cholesterol 79.23 mg/dL (100-129)
[2023-11-06 18:57] LABS: 25-OH Vitamin D, Total 111 ng/mL (30-100)
[2023-11-06 19:06] LABS: Triglycerides 426 mg/dl (30-150)
[2023-11-06 19:11] LABS: Thyroid Stimulating Hormone 0.18 uIU/mL (0.465-4.68)
[2023-11-06 19:15] LABS: Ferritin 13.2 ng/ml (11.1-264)
[2023-11-06 19:51] LABS: Hemoglobin A1C 6.7 % (4.0-6.0)
[2023-11-07 14:57] LABS: HIV (1&2) Antibody Rapid NONREACTIVE
[2023-11-08 08:20] LABS: HCV Ab Non Reactive (Non Reactive)
[2023-11-10 12:21] LABS: Anti-Centromere B Antibodies <0.2 AI (0.0-0.9); Anti-DNA (DS) Ab Qn <1 IU/mL (0-9); Anti-Jo-1 <0.2 AI (0.0-0.9); Anti-Smith Antibody <0.2 AI (0.0-0.9); Antichromatin Antibodies <0.2 AI (0.0-0.9); Antiscleroderma-70 Antibodies 0.2 AI (0.0-0.9); RNP Antibodies <0.2 AI (0.0-0.9); Sjogren's Anti-SS-A <0.2 AI (0.0-0.9); Sjogren's Anti-SS-B <0.2 AI (0.0-0.9)
== END 2023-11-06 23:59 | disposition home or self-care (01) ==
LOC: LAB.DROPOF 11-07 13:57
PROVIDERS: PCP Student in an Organized Health Care Education/Training Program; Visit Provider Student in an Organized Health Care Education/Training Program
DX: Z13.29 Encounter for screening for other suspected endocrine disorder (principal); Z11.4 Encounter for screening for human immunodeficiency virus [HIV]; Z13.21 Encounter for screening for nutritional disorder; Z11.59 Encounter for screening for other viral diseases; I25.10 Atherosclerotic heart disease of native coronary artery without angina pectoris; M54.9 Dorsalgia, unspecified; K92.1 Melena; E11.9 Type 2 diabetes mellitus without complications; Z79.84 Long term (current) use of oral hypoglycemic drugs; Z79.85 Long-term (current) use of injectable non-insulin antidiabetic drugs; Z68.1 Body mass index [BMI] 19.9 or less, adult; I10 Essential (primary) hypertension
CPT/HCPCS: 80061; 82306; 82728; 83036; 83540; 83550; 84443; 86225; 86235

== ENCOUNTER 2023-11-13 10:09 | Outpatient (POV) | payer OTHER, BC, SELFPAY ==
[2023-11-13 10:13] VITALS: BP 116/65; PULSE 85; RESP 16; O2SAT 100; BMI 19.5
--- NOTE | 2023-11-13 10:18 | EXP.PAIN.SOA ---
[facility] Pain Management SOAP Note Subjective:: Patient is a pleasant 58-year-old female who presents today for follow-up of multiple epidural on 10/28/2023. Today she rates her pain a 2 out of 10. Patient denies any new trauma or injury. Patient states that this injection has been amazing. She states she has had at least 75 to 80% relief and feels like it still helping. Patient states she has been able to increase her activity with overall decreased pain and feels much more functional. Patient states that she feels like a new person. She states she has been able to move around and do activities that she has not been able to do for some time. Patient is currently on Plavix written by Dr. Schuster. Her David has been reviewed and is appropriate. Review of Systems: General: No recent weight changes, no fever, no sleep disturbances Respiratory: No cough, no shortness of air, no recurring pulmonary infections Cardiovascular/peripheral vascular: No chest pain, no palpitations, no edema, no shortness of breath Gastrointestinal: No new onset incontinence, normal bowel movements reported Genitourinary: No new onset incontinence Musculoskeletal: Low back pain Psychiatric: [Normal mood/affect] Neurological: [Denies weakness in extremities], [denies balance issues] Objective:: Physical Exam: General: Alert and oriented x3, no acute distress, pleasant and cooperative Lungs: Respirations even and unlabored, symmetrical chest expansion Eyes: PERRL Musculoskeletal: Flexion and extension of lumbar [spine] somewhat guarded secondary to pain, [antalgic gait noted] Neurological: Speech clear, no gross sensory deficit Assessment:: Degenerative disc disease of lumbar spine with lumbar radiculopathy symptoms, buttocks pain Plan:: Patient has had significant improvement following her follow-up epidural and does not require any additional injection therapy at this time. Patient will return to clinic in 1 month for reevaluation of symptoms and plan of care. Patient has been instructed to contact the clinic with any concerns before the next appointment. Dr. Easton has reviewed this note and agrees with this plan of care. This note was dictated using voice recognition software and make contain errors or omissions. [facility] Disclaimer: The information contained in this section may have been updated after the patient was seen, as this information can be updated by other users. Medical History (Updated 11/11/23 @ 20:49 by VINOD Ramirez) HTN (hypertension) History of placement of stent in LAD coronary artery Surgical History H/O spinal fusion History of open heart surgery Family History Other No significant family history Social History Smoking Status: Never smoker alcohol intake: never substance use type: denies use current occupational status: other Travel in the last 8 weeks: None household members: family housing: house lives independently: Yes marital status: number of children: 2 number of grandchildren: 2 service: No long-term: No pets and animals: Yes
== END 2023-11-13 23:59 | disposition home or self-care (01) ==
LOC: SC.PAIN 10:09
PROVIDERS: PCP Student in an Organized Health Care Education/Training Program; Visit Provider Nurse Practitioner Family
DX: M51.16 Intervertebral disc disorders with radiculopathy, lumbar region (principal); M79.18 Myalgia, other site
CPT/HCPCS: 99212; G0463

== ENCOUNTER 2023-12-04 10:01 | Outpatient (CLI) | payer OTHER, BC, SELFPAY ==
[2023-12-04 18:33] LABS: Iron 79 ug/dL (37-170)
[2023-12-04 18:42] LABS: Total Iron Binding Capacity 458 ug/dL (265-497)
[2023-12-04 18:54] LABS: Free Thyroxine Index 3.1 ug/dL (5.93-13.13); T4 (Thyroxine) 10.2 ug/dl (5.53-11.0); Triiodothryronine (T3) Uptake 30 % (23.5-40.5)
[2023-12-04 19:08] LABS: Thyroid Stimulating Hormone 1.22 uIU/mL (0.465-4.68)
[2023-12-04 19:53] LABS: Free T4 (Free Thyroxine) 1.25 ng/dl (0.78-2.19)
[2023-12-04 19:54] LABS: 25-OH Vitamin D, Total 66.5 ng/mL (30-100)
== END 2023-12-04 23:59 | disposition home or self-care (01) ==
LOC: LAB.DROPOF 12-05 09:45
PROVIDERS: PCP Student in an Organized Health Care Education/Training Program; Visit Provider Student in an Organized Health Care Education/Training Program
DX: R79.89 Other specified abnormal findings of blood chemistry (principal); Z13.21 Encounter for screening for nutritional disorder
CPT/HCPCS: 82306; 83540; 83550; 84436; 84439; 84443; 84479

== ENCOUNTER 2024-02-11 10:05 | Outpatient (POV) | payer OTHER, BC, SELFPAY ==
[2024-02-11 11:46] VITALS: BP 117/54; PULSE 76; RESP 16; O2SAT 100; BMI 19.5
--- NOTE | 2024-02-11 12:19 | A.OFFVIS_ITS ---
[facility] Disclaimer: The information contained in this section may have been updated after the patient was seen, as this information can be updated by other users. Medical History (Updated 12/04/23 @ 09:49 by Stevenson Lacy) Diabetes CAD (coronary artery disease) HLD (hyperlipidemia) Chronic back pain H/O irritable bowel syndrome H/O diverticulitis of colon Psoriasis HTN (hypertension) History of placement of stent in LAD coronary artery Surgical History H/O spinal fusion History of open heart surgery Family History Other No significant family history Social History Smoking Status: Never smoker alcohol intake: never substance use type: denies use current occupational status: other Travel in the last 8 weeks: None household members: family housing: house lives independently: Yes marital status: number of children: 2 number of grandchildren: 2 service: No senior living: No pets and animals: Yes PM Subjective & Objective Subjective Subjective:: Patient is a pleasant 59-year-old female who presents today for worsening pain. Patient does rate her pain today a 5 out of 10. Patient states her pain is all in her buttocks area that does radiate down into her legs with numbness and tingling. Patient does state the pain interferes with her ability perform activities of daily living such as cooking and cleaning. Patient did previously have a caudal epidural at the beginning of October that did provide at least 75 to 80% relief and has lasted up until the last couple of weeks. Patient does state that she would like to repeat this injection. Patient denies any new trauma or injury and states it does feel like the exact same pain she had before. Patient has tried and failed conservative therapy including continued at home stretching exercise for longer than 6 weeks between injections. Her David has been reviewed and is appropriate. Review of Systems: General: No recent weight changes, no fever, no sleep disturbances Respiratory: No cough, no shortness of air, no recurring pulmonary infections Cardiovascular/peripheral vascular: No chest pain, no palpitations, no edema, no shortness of breath Gastrointestinal: No new onset incontinence, normal bowel movements reported Genitourinary: No new onset incontinence Musculoskeletal: Buttocks pain, leg pain Psychiatric: [Normal mood/affect] Neurological: [Denies weakness in extremities], [denies balance issues] Pain at rest (0-10 scale): 5 Objective Objective:: Physical Exam: General: Alert and oriented x3, no acute distress, pleasant and cooperative Lungs: Respirations even and unlabored, symmetrical chest expansion Eyes: PERRL Musculoskeletal: Flexion and extension of sacrum [spine] somewhat guarded secondary to pain, [antalgic gait noted] point tenderness along the lower sacral spine Neurological: Speech clear, no gross sensory deficit Has patient had previous pain injection?: No Conservative treatment options previously tried: Home exercise plan Length of treatment: Longer than 6 weeks Meds Home Medications and Allergies Home Medications ?Medication ?Instructions ?Recorded ?Confirmed ?Type empagliflozin 25 mg tablet 25 mg PO DAILY Diabetes 04/14/19 02/11/24 History isosorbide dinitrate 30 mg tablet 30 mg PO DAILY Hypertension 04/14/19 02/11/24 History lisinopril 2.5 mg tablet 2.5 mg PO DAILY Hypertension 04/14/19 02/11/24 History metoprolol succinate 100 mg 100 mg PO BID Hypertension 04/14/19 02/11/24 History tablet,extended release 24 hr aspirin 81 mg tablet,delayed 81 mg PO DAILY 12/02/22 02/11/24 History release (Adult Low Dose Aspirin) cyclobenzaprine 10 mg tablet 10 mg PO HS 12/02/22 02/11/24 History naproxen 500 mg tablet 500 mg PO BID PRN . 12/02/22 02/11/24 History semaglutide 0.25 mg or 0.5 mg (2 0.25 mg SQ WEEKLY 12/02/22 02/11/24 History mg/3 mL) subcutaneous pen injector (Ozempic) triamcinolone acetonide 0.1 % 1 applic topical BID #15 grams 12/06/22 02/11/24 Rx topical cream baclofen 5 mg tablet 5 mg PO BID #28 tabs 10/01/23 02/11/24 Rx alirocumab 75 mg/mL subcutaneous 75 mg SQ Q2W 11/06/23 02/11/24 History pen injector (Praluent Pen) clopidogrel 75 mg tablet (Plavix) 75 mg PO DAILY 11/06/23 02/11/24 History ixekizumab 80 mg/mL subcutaneous 80 mg SQ Q4W 11/06/23 02/11/24 History auto-injector (Taltz Autoinjector) estradiol 0.5 mg tablet 0.5 mg PO DAILY 12/04/23 02/11/24 History progesterone micronized 100 mg 100 mg PO DAILY 12/04/23 02/11/24 History capsule escitalopram oxalate 10 mg tablet 10 mg PO DAILY #30 tabs 02/04/24 02/11/24 Rx New Prescriptions to Start Prescriptions: Allergies Allergy/AdvReac Type Severity Reaction Status Date / Time No Known Allergies Allergy Verified 12/04/23 09:45 Assessment and Plan *Assessment and plan (1) Chronic back pain: Status: Acute Qualifiers: Back pain location: low back pain Back pain laterality: bilateral Sciatica presence: with sciatica Sciatica laterality: bilateral sciatica Qualified Code(s): M54.42 - Lumbago with sciatica, left side; M54.41 - Lumbago with sciatica, right side; G89.29 - Other chronic pain Category: Medical Code(s): M54.9 - Dorsalgia, unspecified; G89.29 - Other chronic pain (2) Buttock pain: Status: Acute Category: Medical Code(s): M79.18 - Myalgia, other site (3) Bilateral hip pain: Status: Acute Category: Medical Code(s): M25.551 - Pain in right hip; M25.552 - Pain in left hip Plan Patient is experiencing worsening pain in and around her tailbone and buttocks area with limited range of motion and point tenderness along the lower sacral spine. Patient did previously have a caudal epidural on October 27 that did provide 75 to 80% relief lasting up until the last couple of weeks. I did review over the risk and benefits of repeat caudal epidural and she would like to proceed forward with this plan of care. Patient is currently managed with Plavix by Dr. Schuster. We will reach out to this provider to confirm she can stop this medication prior to her injection. Patient agrees with this plan of care. Patient has tried and failed conservative therapy including continued at home stretching exercise for longer than 6 weeks between injections. Patient will be scheduled for caudal epidural under fluoroscopy. Patient has been instructed to contact the clinic with any concerns before the next appointment. Dr. Easton has reviewed this note and agrees with this plan of care. This note was dictated using voice recognition software and make contain errors or omissions. All injections are used with Lidocaine or Bupivacaine and Depo Medrol.
== END 2024-02-11 23:59 | disposition home or self-care (01) ==
LOC: SC.PAIN 10:06
PROVIDERS: PCP Student in an Organized Health Care Education/Training Program; Visit Provider Nurse Practitioner Family
DX: M54.42 Lumbago with sciatica, left side (principal); M54.41 Lumbago with sciatica, right side; G89.29 Other chronic pain; M79.18 Myalgia, other site; M25.551 Pain in right hip; M25.552 Pain in left hip; I25.10 Atherosclerotic heart disease of native coronary artery without angina pectoris; I10 Essential (primary) hypertension; Z73.89 Other problems related to life management difficulty; Z79.899 Other long term (current) drug therapy
CPT/HCPCS: 99212; G0463

== ENCOUNTER 2024-03-02 09:57 | Day surgery (SDC) | payer OTHER, BC, SELFPAY ==
[2024-03-02 10:27] VITALS: BP 104/64; BP 127/64; PULSE 68; PULSE 72; RESP 16; TEMP 36.8; O2SAT 100; BMI 19.5
[2024-03-02 10:30] VITALS: BP 128/70; PULSE 74; RESP 16; O2SAT 98
[2024-03-02] MEDS: methylPREDNISolone ACETATE 80MG/ML VIAL 80 MG (10:33)
--- NOTE | 2024-03-02 11:12 | EXP.PAIN.PRO ---
Procedure Date: 03/02/24 Time: 10:00 Anesthesiologist:: Jose Bonds CRNA Complications:: None Pre-procedure Diagnosis:: Degenerative disc lumbar spine multilevels. Lumbar radiculopathy. Lumbar postlaminectomy syndrome. Post-procedure Diagnosis:: Same. Indications for Procedure:: Patient is a pleasant 59-year-old female who comes our clinic today for caudal epidural steroid injection. Patient reports significant improvement terms of her overall low back pain as well as bilateral hip and leg radicular symptoms with previous caudal epidural steroid injections in our clinic. She rates her pain today 6/10. She reports low back pain that is constant, dull, aching. Also, bilateral hip and leg radicular symptoms to the foot. Procedure Details:: Informed consent was obtained and the risks and benefits of the procedure were explained to the patient. The patient was taken to the procedure room and noninvasive monitors placed, including noninvasive blood pressure cuff and pulse oximeter. The back was viewed using C-arm Fluoroscopy and prepped using Chloraprep as a cleansing solution and the caudal epidural space was visualized using fluoroscopy in a lateral position. Skin and subcutaneous tissues were anesthetized using lidocaine 1.5% and a 25-gauge needle. After this, an 22-gauge spinal needle was placed into the caudal epidural space and advanced using fluoroscopic guidance. After confirmation of needle placement in the caudal space, with dye, a solution containing normal saline, 3 mL and Depo-Medrol 80 mg and 1 mL of 1% lidocaine were incrementally injected into the caudal epidural space. The patient tolerated the procedure well with no complications. Plan and Disposition:: Patient was discharged without incident.
== END 2024-03-02 10:40 | disposition home or self-care (01) ==
PROVIDERS: PCP Student in an Organized Health Care Education/Training Program; Visit Provider Nurse Anesthetist, Certified Registered
DX: M51.16 Intervertebral disc disorders with radiculopathy, lumbar region (principal); M96.1 Postlaminectomy syndrome, not elsewhere classified
CPT/HCPCS: 62323; J1010

== ENCOUNTER 2024-03-26 09:34 | Outpatient (CLI) | payer OTHER, BC, SELFPAY ==
[2024-03-26 09:55] LABS: Basophils # 0.1 K/mm3 (0-0.2); Basophils % 1.6 % (0.1-2.0); Eosinophils # 0.1 K/mm3 (0.0-0.4); Eosinophils % 1.2 % (0.1-12.0); Hematocrit 46.9 % (37.0-47.0); Hemoglobin 15.3 g/dL (12.2-16.2); Lymphocytes # 1.1 K/mm3 (0.7-4.5); Mean Corpuscular HGB Conc 32.5 g/dL (31.8-35.4); Mean Corpuscular Hemoglobin 30.7 pg (27.0-31.2); Mean Corpuscular Volume 94.5 fl (81-99); Mean Platelet Volume 8.2 fl (7.4-10.4); Monocytes # 0.2 K/mm3 (0.1-1.0); Monocytes % 6.2 % (1.7-9.3); Neutrophils # 2.5 K/mm3 (1.8-7.8); Platelet Count 269 K/mm3 (142-424); Red Blood Count 4.97 M/mm3 (4.20-5.40); Red Cell Distribution Width 15.3 % (11.5-17.5); White Blood Count 3.9 K/mm3 (4.8-10.8)
[2024-03-26 10:21] LABS: Albumin Level 4.2 g/dl (3.5-5.0); Chloride 102 mmol/L (98-107); Potassium 4.7 mmoL/L (3.5-5.1); Sodium 137 mmol/L (136-145)
[2024-03-26 10:23] LABS: Alanine Aminotransferase 21 U/L (12-78); Anion Gap 9.7 mEq/L (5-15); Aspartate Amino Transferase 28 U/L (14-36); Blood Urea Nitrogen 17 mg/dl (7-17); Carbon Dioxide 30 mmol/L (22.0-30.0); Estimated Glomerular Filt Rate 102 ml/min (>60); GFR (African American) 124 ML/MIN (>60)
[2024-03-26 10:24] LABS: Albumin/Globulin Ratio 1.6 (1.1-1.8); Alkaline Phosphatase 51 U/L (38-126); Bilirubin,Total 0.5 mg/dl (0.2-1.3); Calcium 9.4 mg/dl (8.4-10.2); Chol/HDL Ratio 5.9 (1-3.5); Cholesterol 317 mg/dl (140-200); Globulin 2.6 g/dL (1.3-3.2); Glucose 170 mg/dl (74-100); HDL Cholesterol 54 mg/dl (40-60); Total Protein,Serum 6.8 g/dl (6.3-8.2); Triglycerides 364 mg/dl (30-150); VLDL Cholesterol 73 mg/dL (0-40)
[2024-03-26 10:35] LABS: Direct LDL Cholesterol 208.37 mg/dL (100-129)
[2024-03-26 10:55] LABS: Thyroid Stimulating Hormone 0.49 uIU/mL (0.465-4.68)
[2024-03-26 11:07] LABS: 25-OH Vitamin D, Total 58.8 ng/mL (30-100)
[2024-03-26 12:54] LABS: Vitamin B12 890 pg/mL (239-931)
[2024-03-27 08:35] LABS: Estradiol 12.8 pg/mL (.); FSH 99.4 mIU/mL (.); Thyroid Peroxidase Antibodies 12 IU/mL (0-34); Triiodothyronine (T3) Free 2.6 pg/mL (2.0-4.4)
[2024-03-31 21:03] LABS: Testosterone,Free 1.9 pg/mL (0.0-4.2)
[2024-04-05 20:09] LABS: Testosterone, Total, LC/MS 27 ng/dL (.)
== END 2024-03-26 23:59 | disposition home or self-care (01) ==
LOC: LAB 09:36
PROVIDERS: PCP Student in an Organized Health Care Education/Training Program; Visit Provider Nurse Practitioner Adult Health
DX: Z13.220 Encounter for screening for lipoid disorders (principal); Z13.1 Encounter for screening for diabetes mellitus; Z13.29 Encounter for screening for other suspected endocrine disorder; R53.83 Other fatigue; E53.9 Vitamin B deficiency, unspecified; E55.9 Vitamin D deficiency, unspecified; N95.1 Menopausal and female climacteric states
CPT/HCPCS: 36415; 80050; 80053; 80061; 82306; 82607; 82626; 82670; 83001; 83036; 84402; 84403; 84443; 84481; 85025; 86376

== ENCOUNTER 2024-04-01 11:26 | Outpatient (POV) | payer OTHER, BC, SELFPAY ==
[2024-04-01 11:46] VITALS: BP 108/65; PULSE 80; RESP 16; O2SAT 100; BMI 19.5
--- NOTE | 2024-04-01 12:02 | A.OFFVIS_ITS ---
[facility] Disclaimer: The information contained in this section may have been updated after the patient was seen, as this information can be updated by other users. Medical History Diabetes CAD (coronary artery disease) HLD (hyperlipidemia) Chronic back pain H/O irritable bowel syndrome H/O diverticulitis of colon Psoriasis HTN (hypertension) History of placement of stent in LAD coronary artery Surgical History H/O spinal fusion History of open heart surgery Family History Other No significant family history Social History Smoking Status: Never smoker alcohol intake: never substance use type: denies use current occupational status: other Travel in the last 8 weeks: None household members: family housing: house lives independently: Yes marital status: number of children: 2 number of grandchildren: 2 service: No m[employer]: No pets and animals: Yes PM Subjective & Objective Subjective Subjective:: Patient is a pleasant 59-year-old female who presents today for follow-up of her second caudal epidural on 03/02/2024. Today she rates her pain a 2 out of 10. Patient denies any new trauma or injury. Patient states that she is actually had even more improvement with this 1 compared to her first caudal. She does state that it is given at least 90% improvement and feels like it still helping. Patient has been able to increase her activity with overall decreased pain. Her David has been reviewed and is appropriate. Review of Systems: General: No recent weight changes, no fever, no sleep disturbances Respiratory: No cough, no shortness of air, no recurring pulmonary infections Cardiovascular/peripheral vascular: No chest pain, no palpitations, no edema, no shortness of breath Gastrointestinal: No new onset incontinence, normal bowel movements reported Genitourinary: No new onset incontinence Musculoskeletal: Buttocks pain Psychiatric: [Normal mood/affect] Neurological: [Denies weakness in extremities], [denies balance issues] Pain at rest (0-10 scale): 2 Objective Objective:: Physical Exam: General: Alert and oriented x3, no acute distress, pleasant and cooperative Lungs: Respirations even and unlabored, symmetrical chest expansion Eyes: PERRL Musculoskeletal: Flexion and extension of lumbar [spine] somewhat guarded secondary to pain, [antalgic gait noted] Neurological: Speech clear, no gross sensory deficit Has patient had previous pain injection?: Yes Percent improvement in pain since last injection: 90% Conservative treatment options previously tried: Home exercise plan Length of treatment: Longer than 12 weeks Meds Home Medications and Allergies Home Medications ?Medication ?Instructions ?Recorded ?Confirmed ?Type empagliflozin 25 mg tablet 25 mg PO DAILY Diabetes 04/14/19 04/01/24 History isosorbide dinitrate 30 mg tablet 30 mg PO DAILY Hypertension 04/14/19 04/01/24 History lisinopril 2.5 mg tablet 2.5 mg PO DAILY Hypertension 04/14/19 04/01/24 History metoprolol succinate 100 mg 100 mg PO BID Hypertension 04/14/19 04/01/24 History tablet,extended release 24 hr aspirin 81 mg tablet,delayed 81 mg PO DAILY 12/02/22 04/01/24 History release (Adult Low Dose Aspirin) cyclobenzaprine 10 mg tablet 10 mg PO HS 12/02/22 04/01/24 History naproxen 500 mg tablet 500 mg PO BID PRN . 12/02/22 04/01/24 History semaglutide 0.25 mg or 0.5 mg (2 0.25 mg SQ WEEKLY 12/02/22 04/01/24 History mg/3 mL) subcutaneous pen injector (Ozempic) triamcinolone acetonide 0.1 % 1 applic topical BID #15 grams 12/06/22 04/01/24 Rx topical cream baclofen 5 mg tablet 5 mg PO BID #28 tabs 10/01/23 04/01/24 Rx alirocumab 75 mg/mL subcutaneous 75 mg SQ Q2W 11/06/23 04/01/24 History pen injector (Praluent Pen) clopidogrel 75 mg tablet (Plavix) 75 mg PO DAILY 11/06/23 04/01/24 History ixekizumab 80 mg/mL subcutaneous 80 mg SQ Q4W 11/06/23 04/01/24 History auto-injector (Taltz Autoinjector) estradiol 0.5 mg tablet 0.5 mg PO DAILY 12/04/23 04/01/24 History progesterone micronized 100 mg 100 mg PO DAILY 12/04/23 04/01/24 History capsule escitalopram oxalate 10 mg tablet 10 mg PO DAILY #30 tabs 02/04/24 04/01/24 Rx New Prescriptions to Start Prescriptions: Allergies Allergy/AdvReac Type Severity Reaction Status Date / Time No Known Allergies Allergy Verified 12/04/23 09:45 Assessment and Plan *Assessment and plan (1) Buttock pain: Status: Acute Category: Medical Code(s): M79.18 - Myalgia, other site Plan Patient has had significant improvement following her second caudal epidural and does not require any additional injection therapy at this time. Patient will return to clinic in 2 months for reevaluation of symptoms and plan of care. Patient has been instructed to contact the clinic with any concerns before the next appointment. Dr. Easton has reviewed this note and agrees with this plan of care. This note was dictated using voice recognition software and make contain errors or omissions. All injections are used with Lidocaine or Bupivacaine and Depo Medrol.
== END 2024-04-01 23:59 | disposition home or self-care (01) ==
LOC: SC.PAIN 11:26
PROVIDERS: PCP Student in an Organized Health Care Education/Training Program; Visit Provider Nurse Practitioner Family
DX: M79.18 Myalgia, other site (principal); Z79.85 Long-term (current) use of injectable non-insulin antidiabetic drugs; Z79.02 Long term (current) use of antithrombotics/antiplatelets
CPT/HCPCS: 99212; G0463

== ENCOUNTER 2024-05-07 10:54 | Outpatient (CLI) | payer OTHER, BC, SELFPAY ==
[2024-05-08 08:13] LABS: Estradiol 42.8 pg/mL (.); FSH 57.7 mIU/mL (.)
[2024-05-13 00:07] LABS: Free Testosterone (Direct) 2.8 pg/mL (0.0-4.2); Testosterone, Total, LC/MS 156.1 ng/dL (.)
== END 2024-05-07 23:59 | disposition home or self-care (01) ==
PROVIDERS: PCP Student in an Organized Health Care Education/Training Program; Visit Provider Nurse Practitioner Adult Health
DX: N95.1 Menopausal and female climacteric states (principal); Z79.890 Hormone replacement therapy
CPT/HCPCS: 84402; 84403; 36415; 82670; 83001

== ENCOUNTER 2024-05-13 10:44 | Outpatient (POV) | payer OTHER, BC, SELFPAY ==
[2024-05-13 10:58] VITALS: BP 111/65; PULSE 80; RESP 14; O2SAT 100; BMI 14.8
--- NOTE | 2024-05-13 11:07 | EXP.PAIN.SOA ---
[facility] Disclaimer: The information contained in this section may have been updated after the patient was seen, as this information can be updated by other users. Medical History (Updated 05/13/24 @ 11:10 by Twyla Crowley APRN) Diabetes CAD (coronary artery disease) HLD (hyperlipidemia) Chronic back pain H/O irritable bowel syndrome H/O diverticulitis of colon Psoriasis HTN (hypertension) History of placement of stent in LAD coronary artery Surgical History H/O spinal fusion History of open heart surgery Family History Other No significant family history Social History Smoking Status: Never smoker alcohol intake: never substance use type: denies use current occupational status: other Travel in the last 8 weeks: None household members: family housing: house lives independently: Yes marital status: number of children: 2 number of grandchildren: 2 service: No retirement: No pets and animals: Yes PM Subjective & Objective Subjective Subjective:: Patient is a pleasant 59-year-old female who presents today for 6-week follow-up. Today she rates her pain an 8 out of 10. Patient states that she has been experiencing more hip tight buttocks pain. Patient states this has been going on for months however the last 2 months have been progressively worsening. Patient states overall her back seems to still be doing well from her caudal epidurals and feels like that that is still much better than what it was. She describes her pain currently is all into her buttocks area and that the left side is worse than the right and it is very tight with pressure. She does state it interferes with her ability perform activities of daily living such as cooking and cleaning. Patient states she can even sit down on her buttocks due to the lower buttocks area pain. She states it is 1 spot on both sides that is very bothersome. She states that she has done cushions for positioning and tried rolling a tennis ball and done other exercises recommended by her chiropractor. Patient has also been trying to get adjustments with no additional relief. Patient was prescribed baclofen 5 mg twice a day from our office. She states this does help some however sometimes it does still cause drowsiness. Her David has been reviewed and is appropriate. Review of Systems: General: No recent weight changes, no fever, no sleep disturbances Respiratory: No cough, no shortness of air, no recurring pulmonary infections Cardiovascular/peripheral vascular: No chest pain, no palpitations, no edema, no shortness of breath Gastrointestinal: No new onset incontinence, normal bowel movements reported Genitourinary: No new onset incontinence Musculoskeletal: Bilateral buttocks pain/hip pain Psychiatric: [Normal mood/affect] Neurological: [Denies weakness in extremities], [denies balance issues] Pain at rest (0-10 scale): 8 Objective Objective:: Physical Exam: General: Alert and oriented x3, no acute distress, pleasant and cooperative Lungs: Respirations even and unlabored, symmetrical chest expansion Eyes: PERRL Musculoskeletal: Flexion and extension of lumbar [spine] somewhat guarded secondary to pain, [antalgic gait noted] point tenderness along bilateral piriformis muscles Neurological: Speech clear, no gross sensory deficit Has patient had previous pain injection?: No Conservative treatment options previously tried: Home exercise plan Length of treatment: Longer than 12 weeks and Chiropractor Length of treatment: Ongoing Meds Home Medications and Allergies Home Medications ?Medication ?Instructions ?Recorded ?Confirmed ?Type empagliflozin 25 mg tablet 25 mg PO DAILY Diabetes 04/14/19 05/13/24 History isosorbide dinitrate 30 mg tablet 30 mg PO DAILY Hypertension 04/14/19 05/13/24 History lisinopril 2.5 mg tablet 2.5 mg PO DAILY Hypertension 04/14/19 05/13/24 History metoprolol succinate 100 mg 100 mg PO BID Hypertension 04/14/19 05/13/24 History tablet,extended release 24 hr aspirin 81 mg tablet,delayed 81 mg PO DAILY 12/02/22 05/13/24 History release (Adult Low Dose Aspirin) cyclobenzaprine 10 mg tablet 10 mg PO HS 12/02/22 05/13/24 History naproxen 500 mg tablet 500 mg PO BID PRN . 12/02/22 05/13/24 History semaglutide 0.25 mg or 0.5 mg (2 0.25 mg SQ WEEKLY 12/02/22 05/13/24 History mg/3 mL) subcutaneous pen injector ([place]) triamcinolone acetonide 0.1 % 1 applic topical BID #15 grams 12/06/22 05/13/24 Rx topical cream baclofen 5 mg tablet 5 mg PO BID #28 tabs 10/01/23 05/13/24 Rx alirocumab 75 mg/mL subcutaneous 75 mg SQ Q2W 11/06/23 05/13/24 History pen injector (Praluent Pen) clopidogrel 75 mg tablet (Plavix) 75 mg PO DAILY 11/06/23 05/13/24 History ixekizumab 80 mg/mL subcutaneous 80 mg SQ Q4W 11/06/23 05/13/24 History auto-injector (Taltz Autoinjector) estradiol 0.5 mg tablet 0.5 mg PO DAILY 12/04/23 05/13/24 History progesterone micronized 100 mg 100 mg PO DAILY 12/04/23 05/13/24 History capsule escitalopram oxalate 10 mg tablet 10 mg PO DAILY #30 tabs 02/04/24 05/13/24 Rx New Prescriptions to Start Prescriptions: Allergies Allergy/AdvReac Type Severity Reaction Status Date / Time No Known Allergies Allergy Verified 12/04/23 09:45 Assessment and Plan *Assessment and plan (1) Bilateral piriformis syndrome: Status: Acute Category: Medical Code(s): G57.03 - Lesion of sciatic nerve, bilateral lower limbs (2) Myofascial pain: Status: Acute Category: Medical Code(s): M79.18 - Myalgia, other site Plan Patient is experiencing worsening pain in her bilateral buttocks with point tenderness along the bilateral piriformis muscles. I did discuss with patient that I do believe she would benefit from bilateral piriformis injections. Risk and benefits were discussed with patient and she would like to proceed forward with this plan of care. Patient has tried and failed conservative therapy including oral medication, heat and ice, topicals, chiropractor therapy, at home stretching and exercise for longer than 8 weeks. Patient has had this pain present for months however the last 2 months have progressively worsened. She does also state once her back had improved from the caudal epidural she did notice this pain much more prevalent. Patient will be refilled on her baclofen and scheduled for bilateral piriformis muscle injections. These will be done without fluoroscopic guidance or ultrasound. Patient has been instructed to contact the clinic with any concerns before the next appointment. Dr. Easton has reviewed this note and agrees with this plan of care. This note was dictated using voice recognition software and make contain errors or omissions. All injections are used with Lidocaine, Bupivacaine and Depo Medrol. Occasionally urine drug screen is needed to verify patient's compliance with our office pain contract. This is ordered based off specific treatments related to chronic pain with the potential to abuse certain medications.
== END 2024-05-13 23:59 | disposition home or self-care (01) ==
PROVIDERS: PCP Student in an Organized Health Care Education/Training Program; Visit Provider Nurse Practitioner Family
DX: G57.03 Lesion of sciatic nerve, bilateral lower limbs (principal); M79.18 Myalgia, other site; Z73.89 Other problems related to life management difficulty; Z79.85 Long-term (current) use of injectable non-insulin antidiabetic drugs; Z79.02 Long term (current) use of antithrombotics/antiplatelets
CPT/HCPCS: 99212; G0463

== ENCOUNTER 2024-06-08 12:11 | Day surgery (SDC) | payer OTHER, BC, SELFPAY ==
[2024-06-08 13:01] VITALS: BP 113/60; PULSE 86; RESP 18; TEMP 36.2; O2SAT 99; BMI 19.5
[2024-06-08 13:06] VITALS: BP 116/58; PULSE 83; RESP 18; O2SAT 99
[2024-06-08] MEDS: BUPIVACAINE 0.25% 10ML INJ 25 MG IJ (13:06)
[2024-06-08] MEDS: methylPREDNISolone ACETATE 80MG/ML VIAL 80 MG (13:07)
[2024-06-08] MEDS: LIDOCAINE 1% 5ML PF VIAL 5 ML (13:07)
[2024-06-08] MEDS: IOPAMIDOL-200 (41%);10ML VIAL IV (13:12)
[2024-06-08 13:15] VITALS: BP 111/64; PULSE 72; RESP 18; O2SAT 99
--- NOTE | 2024-06-08 13:42 | EXP.PAIN.PRO ---
Procedure Date: 06/08/24 Time: 13:00 Anesthesiologist:: Jose Bonds CRNA Complications:: None Pre-procedure Diagnosis:: Bilateral piriformis syndrome. Degenerative disc lumbar spine multilevels. Lumbar radiculopathy. Disc bulge L4-5, L5-S1. Post-procedure Diagnosis:: Same. Indications for Procedure:: Patient is a pleasant 59-year-old female who comes our clinic today for bilateral piriformis injection. However, after discussing with the patient regarding treatment plan. Her main complaint is left buttock, left posterior thigh and knee pain. She reports minimal pain on the right side. We will follow through with left piriformis injection. Procedure Details:: Details of the procedure explained to the patient. The patient taken procedure room placed in the prone position on fluoroscopy table. The area over the low lumbar left side as well as left buttock was cleaned using chlorhexidine as a cleansing solution. Using fluoroscopy guidance a 22-gauge 3 inch spinal needle was used to access the left piriformis muscle. Needle position was confirmed using 0.25 mL of contrast dye noted and a lateral spread. At this time after negative aspiration 4 cc of 1% lidocaine and 40 mg of Depo-Medrol was injected. Patient tolerated procedure without difficulty. There are no complications. Plan and Disposition:: Patient was reevaluated 10 minutes post procedure. The left leg has some degree of motor block. She will remain in recovery for 30 to 60 minutes. Patient has range of motion with left leg no problem. She is doing well. Will be discharged following return of left leg motor movement.
== END 2024-06-08 13:16 | disposition home or self-care (01) ==
PROVIDERS: PCP Student in an Organized Health Care Education/Training Program; Visit Provider Nurse Anesthetist, Certified Registered
DX: G57.03 Lesion of sciatic nerve, bilateral lower limbs (principal); M79.18 Myalgia, other site; M51.16 Intervertebral disc disorders with radiculopathy, lumbar region
CPT/HCPCS: 20552; 77002; J1010; Q9966

== ENCOUNTER 2024-06-23 12:55 | Outpatient (POV) | payer OTHER, BC, SELFPAY ==
--- NOTE | 2024-06-23 13:33 | EXP.PAIN.SOA ---
[facility] Disclaimer: The information contained in this section may have been updated after the patient was seen, as this information can be updated by other users. Medical History (Updated 06/23/24 @ 13:36 by Twyla Crowley APRN) Diabetes CAD (coronary artery disease) HLD (hyperlipidemia) Chronic back pain H/O irritable bowel syndrome H/O diverticulitis of colon Psoriasis HTN (hypertension) History of placement of stent in LAD coronary artery Surgical History H/O spinal fusion History of open heart surgery Family History Other No significant family history Social History Smoking Status: Never smoker alcohol intake: never substance use type: denies use current occupational status: other Travel in the last 8 weeks: None household members: family housing: house lives independently: Yes marital status: number of children: 2 number of grandchildren: 2 service: No alf: No pets and animals: Yes PM Subjective & Objective Subjective Subjective:: Patient is a pleasant 59-year-old female who presents today for follow-up of left piriformis muscle injection on 06/08/2024. Today she rates her pain a 7 out of 10. She denies any new injury or trauma. She does state that she did not notice any improvement following this injection. Patient did actually have issues with her left leg going completely numb and did stumble immediately after this injection because not being able to feel her leg. Patient states that she ended up staying here an hour until she started getting more sensation into that area. Patient states she still has the same pain primarily on that left side into her lower buttocks. She states that the pain is severe and significantly interferes with her activities of daily living such as cooking and cleaning. Patient states that she cannot sit for prolonged periods due to the worsening pain. Patient has done really well in the past with caudal epidurals with her last 1 providing 90% from relief. Patient is interested in any and all help we may be able to provide due to the severe pain. Her David has been reviewed and is appropriate. Review of Systems: General: No recent weight changes, no fever, no sleep disturbances Respiratory: No cough, no shortness of air, no recurring pulmonary infections Cardiovascular/peripheral vascular: No chest pain, no palpitations, no edema, no shortness of breath Gastrointestinal: No new onset incontinence, normal bowel movements reported Genitourinary: No new onset incontinence Musculoskeletal: Buttocks pain, left leg pain Psychiatric: [Normal mood/affect] Neurological: [Denies weakness in extremities], [denies balance issues] Pain at rest (0-10 scale): 7 Objective Objective:: Physical Exam: General: Alert and oriented x3, no acute distress, pleasant and cooperative Lungs: Respirations even and unlabored, symmetrical chest expansion Eyes: PERRL Musculoskeletal: Flexion and extension of sacrum [spine] somewhat guarded secondary to pain, [antalgic gait noted] point tenderness along the left lower buttocks/piriformis muscle and tenderness around her lower sacrum Neurological: Speech clear, no gross sensory deficit Has patient had previous pain injection?: Yes Percent improvement in pain since last injection: Minimal Conservative treatment options previously tried: Home exercise plan Length of treatment: Longer than 12 weeks Meds Home Medications and Allergies Home Medications ?Medication ?Instructions ?Recorded ?Confirmed ?Type empagliflozin 25 mg tablet 25 mg PO DAILY Diabetes 04/14/19 05/13/24 History isosorbide dinitrate 30 mg tablet 30 mg PO DAILY Hypertension 04/14/19 05/13/24 History lisinopril 2.5 mg tablet 2.5 mg PO DAILY Hypertension 04/14/19 05/13/24 History metoprolol succinate 100 mg 100 mg PO BID Hypertension 04/14/19 05/13/24 History tablet,extended release 24 hr aspirin 81 mg tablet,delayed 81 mg PO DAILY 12/02/22 05/13/24 History release (Adult Low Dose Aspirin) cyclobenzaprine 10 mg tablet 10 mg PO HS 12/02/22 05/13/24 History naproxen 500 mg tablet 500 mg PO BID PRN . 12/02/22 05/13/24 History semaglutide 0.25 mg or 0.5 mg (2 0.25 mg SQ WEEKLY 12/02/22 05/13/24 History mg/3 mL) subcutaneous pen injector (Ozempic) triamcinolone acetonide 0.1 % 1 applic topical BID #15 grams 12/06/22 05/13/24 Rx topical cream alirocumab 75 mg/mL subcutaneous 75 mg SQ Q2W 11/06/23 05/13/24 History pen injector (Praluent Pen) clopidogrel 75 mg tablet (Plavix) 75 mg PO DAILY 11/06/23 05/13/24 History ixekizumab 80 mg/mL subcutaneous 80 mg SQ Q4W 11/06/23 05/13/24 History auto-injector (Taltz Autoinjector) estradiol 0.5 mg tablet 0.5 mg PO DAILY 12/04/23 05/13/24 History progesterone micronized 100 mg 100 mg PO DAILY 12/04/23 05/13/24 History capsule escitalopram oxalate 10 mg tablet 10 mg PO DAILY #30 tabs 02/04/24 05/13/24 Rx baclofen 5 mg tablet 5 mg PO BID #60 tabs 05/13/24 Rx amitriptyline 10 mg tablet 10 mg PO HS #14 tabs 06/23/24 Rx New Prescriptions to Start Prescriptions: amitriptyline Twyla Crowley Allergies Allergy/AdvReac Type Severity Reaction Status Date / Time No Known Allergies Allergy Verified 12/04/23 09:45 Assessment and Plan *Assessment and plan (1) Bilateral piriformis syndrome: Status: Acute Category: Medical Code(s): G57.03 - Lesion of sciatic nerve, bilateral lower limbs (2) Myofascial pain: Status: Acute Category: Medical Code(s): M79.18 - Myalgia, other site (3) Buttock pain: Status: Acute Category: Medical Code(s): M79.18 - Myalgia, other site (4) Lumbar radiculopathy: Status: Acute Category: Medical Code(s): M54.16 - Radiculopathy, lumbar region Plan Patient is experiencing worsening pain in her lower sacrum with numbness and tingling into her left lower extremity. Patient did have limited range of motion of her sacrum spine with a positive left leg raise. I did discuss with patient that I do believe they would benefit from a caudal epidural steroid injection. Risk and benefits were discussed with patient and the patient would like to proceed forward with this plan of care. Patient is on any blood thinners and was counseled that we will reach out to Dr. Schuster to confirm she can stop this medication prior to this injection. Patient has tried and failed conservative therapy including continued at home stretching exercise for longer than 12 weeks between injections. Patient did previously have a caudal epidural back in February that provided 90% relief and lasted longer than 3 months. We will schedule the patient for a repeat caudal epidural steroid injection under fluoroscopy. I will also send in a 2-week dose of amitriptyline 10 mg at bedtime and increase her compounded cream dosage as well as send in a physical therapy order for her low back/buttock/left leg pain. Patient has been instructed to contact the clinic with any concerns before the next appointment. Dr. Easton has reviewed this note and agrees with this plan of care. This note was dictated using voice recognition software and make contain errors or omissions. All injections are used with Lidocaine, Bupivacaine and Depo Medrol. Occasionally urine drug screen is needed to verify patient's compliance with our office pain contract. This is ordered based off specific treatments related to chronic pain with the potential to abuse certain medications.
[2024-06-23 13:49] VITALS: BP 107/63; PULSE 87; RESP 14; O2SAT 100; BMI 19.5
== END 2024-06-23 23:59 | disposition home or self-care (01) ==
PROVIDERS: PCP Student in an Organized Health Care Education/Training Program; Visit Provider Nurse Practitioner Family
DX: G57.03 Lesion of sciatic nerve, bilateral lower limbs (principal); M79.18 Myalgia, other site; Z79.899 Other long term (current) drug therapy
CPT/HCPCS: 99212; G0463

== ENCOUNTER 2024-07-21 09:00 | Outpatient (RCR) | payer OTHER, BC, SELFPAY ==
--- NOTE | 2024-07-19 11:19 | HMH.PTOPEV ---
PT Outpatient Evaluation Rehab PT Outpatient Evaluation Start: 07/19/24 10:12 Freq: Status: Active Protocol: Document 07/19/24 10:12 CAMILLA (Rec: 07/19/24 11:18 CAMILLA [id number]) E-signed By Twyla Melchor, PT Outpatient Therapy Subjective History Subjective History Pt is a 59 y/o female who reports chronic low back pain for years with gradual worsening over the last 6 months without known trauma or injury. Pt states she has been treated for LBP by a chiropractor for 8 years including mechanical traction and has had multiple injections at pain management with only short-term improvement. Pt states most recent lumbar spine MRI 2 years ago at [facility] which showed a bulging disc at L5-S1 and she saw a neurosurgeon the following year who suggested a fusion; however, the pt opted for more conservative care and requested to have PT. Pt reports she is scheduled to have radiographs of her lumbar spine later this date. Pt reports current symptoms of L> R posterior hip pain that radiates to the posterior knee . Pt denies more distal symptoms, paresthesia or b/b dysfunction. Pt reports pain is aggravated by prolonged sitting, standing, walking, stair climbing, bending/ lifting, and laying on the L side. Pt reports pain wakes her up at night when she rolls onto her L side and she is not sleeping well. Pt reports she is using a prescribed compound cream and Baclofen prn which slightly improves pain. Medical History: Diabetes, CAD (coronary artery disease), HLD (hyperlipidemia), Chronic back pain, H/O irritable bowel syndrome, H/O diverticulitis of colon, Psoriasis, HTN ( hypertension), History of placement of stent in LAD coronary artery in 2022 Core strength: 4-/5 New diagnosis of cancer in past 12 No months? Chief Complaint Pain Symptom Type Sharp,Burning Symptoms Relieved By Ice Symptoms Aggravated By Sitting,Standing,Bending/ Stooping,Physical Activity, Twisting,Walking,Lifting, Sneeze/Coughing Current Functional Limitations Lifting,Housework,Sleeping, Standing,Sitting,Recreation Activity,Walking,Stairs, Bending/Stooping Symptom Description Constant but Variable Level of pain today (0-10) 7 Pain scale - at its best (0-10) 4 Pain scale - at its worst (0-10) 10 Lumbopelvic Eval Posture Lumbar Spine Posture Standing Position Decreased Lordosis Assistive device Assistive Devices None / NA Palapation tenderness bilateral lumbar spinal tenderness Yes: L4-L5, L5-S1 buttock tenderness Yes: L>R piriformis mm Lumbar/Sacral Palpation Findings Tenderness Lumbar/Sacral Palpation Overall Comment 2/4 TTP Accessory Movement L-spine Vertebrae Accessory Movements Central P/A [place] that Elicit Symptoms L4 bilateral L5 bilateral S1 bilateral Range of Motion Lumbar Spine Active Flexion Range of 55 Motion (degrees) Lumbar Spine Active Extension Range of 20 Motion (degrees) Left Lumbar Spine Lateral Flexion Active 10 Range of Motion (degrees) Right Lumbar Spine Lateral Flexion 10 Active Range of Motion (degrees) Manual Muscle Test Bilateral Knee Extension Strength Grade 5 Normal Knee Flexion Strength Grade 5 Normal Hip Flexion Strength Grade 4 Good Hip Abduction Strength Grade 4 Good Hip Adduction Strength Grade 4 Good Hip External Rotation Strength Grade 4- Good- Hip Extension Strength Grade 4- Good- Ankle Dorsiflexion Strength Grade 5 Normal DTR Rt Patellar 2+ Lt Patellar 2+ Rt Gastroc/Soleus 2+ Lt Gastroc/Soleus 2+ Altered Sensation Bilateral Comment equal and intact to light touch sensation bilaterally Special Tests Hip Jose (MAGO) Test Negative Right,Positive Left Sciatic Nerve Tension Test Negative Right,Positive Left Unilateral Straight Leg Raise (Lasegue) Negative Right,Positive Left Test Oswestry Index Section 1 Pain Intensity The pain is severe and does not vary much Section 2 Personal Care (Washing,Dresing) increase the pain and I find it necessary to change my way of doing it Section 3 Lifting I can only lift very light weights at most Section 4 Walking I cannot walk more than 1/4 mile without increasing pain Section 5 Sitting Pain prevents me from sitting for more than 10 minutes Section 6 Standing I cannot stand more than 10 minutes without increasing pain Section 7 Sleeping Because of my pain, my normal night's sleep is less than 4 hours Section 8 Social Life Pain has restricted my social life and I do not go out often Section 9 Traveling Pain restricts me to short necessary journeys under 30 minutes Section 10 Changing Degreee of Pain My pain is rapidly getting worse Score and Risk Level Oswestry Sc 40 Oswestry Risk Level Completely Disabled Outpatient Therapy Assessment Impairments Problems/Impairmments Palpation Tenderness,Impaired Range of Motion,Impaired Strength,Impaired Walking, Impaired Standing,Impaired Sitting,Impaired Lifting, Impaired Household Care, Impaired Stair Climbing, Impaired Bending,Impaired Recreational Activities, Subjective C/O Pain,Impaired Self Care/Self Management Prognosis Rehab Potential Good Clinical Impression Consistent with Diagnosis Yes Short Term Goals Number of Weeks 3 Increase Range of Motion Yes: Improve lumbar AROM flexion to at least 60-65 Improve Oswestry Score Yes: Improve score to at least 35 to improve overall QOL Decrease Subjective C/O Pain Yes: Improve pain at worst to 8/10 to improve overall QOL Improve Self Care/Self Management Yes 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 Number of Weeks 6 Decreased Palpation Tenderness Yes: 0-1/4 TTP of L piriformis mm Increase Range of Motion Yes: Improve lumbar AROM flexion to at least 70-80, LF to 15 Increase Strength Yes: Improve hip/core strength to 4+/5 grossly to assist with function Restore Ability to Lift Objects to Waist Yes: demonstrate proper Level lifting mechanics to prevent reinjury with ADLs Improve Ability to Climb Stairs Yes: 1 flight reciprocally to assist with community navigation Improve Oswestry Score Yes: Improve score to at least 30 to improve overall QOL Decrease Subjective C/O Pain Yes: Improve pain at worst to 6/10 to improve overall QOL Outpatient Therapy Plan of Care Treatment Plan May Include Therapeutic Exercise Including Home Yes Exercise Program Manual Therapy Techniques Yes Neuromuscular Re-education Yes Therapeutic Activities to Return to Yes Previous Functional/Work Level ADL/Self Care Education Yes Mechanical Traction Yes Dry Needling Yes Thermal Modalities Yes Electrical Stimulation Yes Ultrasound/Phonophoresis Yes Iontophoresis Yes Massage Yes Eval/Re-Eval Yes Frequency Times per week 2 Duration Number of Weeks 4-6 Addendums This patient is a candidate for social No or vocational rehab? Patient/Guardian verbally acknowledges Yes understanding of treatment program and consents to further treatment? Patient/Guardian verbally acknowledges Yes understanding of diagnosis, prognosis and goals for treatment? Eval Complexity PT Charges 02287 - Moderate Complexity Shoulder/Elbow Eval Shoulder Objective Measurements Elbow Objective Measurements PHYSICIAN CERTIFICATION: I certify the specified therapy services for Gloria Atwood are required, authorized, and reviewed every 30 days.
== END 2024-07-21 23:59 | disposition home or self-care (01) ==
LOC: PT 09:00
PROVIDERS: PCP Student in an Organized Health Care Education/Training Program; Visit Provider Nurse Practitioner Family
DX: M54.50 Low back pain, unspecified (principal); M54.16 Radiculopathy, lumbar region; M79.18 Myalgia, other site
CPT/HCPCS: 97014; 97110; 97163; 97530; G0283

== ENCOUNTER 2024-08-12 11:26 | Outpatient (CLI) | payer OTHER, BC, SELFPAY ==
--- NOTE | 2024-08-12 11:29 | XR_ITS ---
FINAL REPORT TECHNIQUE: 3 views lumbar spine CLINICAL HISTORY: low back pain COMPARISON: None FINDINGS: LUMBAR SPINE: No fracture is identified. There is advanced degenerative disc disease at the L5-S1 level, with facet arthropathy. Mild degenerative changes noted involving other disc levels. Mild dextroscoliosis is present. IMPRESSION: Advanced degenerative disc disease at the L5-S1 level with facet arthropathy, mild degenerative changes at other levels. There may be associated canal stenosis and/or neural foraminal narrowing. Correlation with MR may be helpful as clinically indicated. Reviewed, Interpreted and Dictated by Tess Oconnor MD Transcribed by Gema Marquez Authenticated and . [facility]
--- NOTE | 2024-08-12 11:29 | XR_ITS ---
FINAL REPORT TECHNIQUE: Sacrum 3 views CLINICAL HISTORY: low back pain / buttock pain COMPARISON: None FINDINGS: SACRUM AND COCCYX: AP and lateral views of the sacrum and coccyx were obtained. There is no prior exam for comparison. There is no acute fracture or other acute osseous abnormality. The SI joints demonstrate mild degenerative change bilaterally. The sacrococcygeal articulation appears within normal limits. No acute soft tissue abnormality is present. IMPRESSION Mild degenerative change of both sacroiliac joints. Reviewed, Interpreted and Dictated by Tess Oconnor MD Transcribed by Gema Marquez Authenticated and [facility]
== END 2024-08-12 23:59 | disposition home or self-care (01) ==
LOC: RAD 11:27
PROVIDERS: Visit Provider Nurse Practitioner Family
DX: G57.03 Lesion of sciatic nerve, bilateral lower limbs (principal); M79.18 Myalgia, other site
CPT/HCPCS: 72100; 72220

== ENCOUNTER 2024-08-18 09:00 | Outpatient (RCR) | payer OTHER, BC, SELFPAY | END 2024-08-18 23:59 | disposition home or self-care (01) | LOC: PT 09:00 | PROVIDERS: PCP Student in an Organized Health Care Education/Training Program; Visit Provider Nurse Practitioner Family | DX: G57.03 Lesion of sciatic nerve, bilateral lower limbs (principal); M79.18 Myalgia, other site; M54.50 Low back pain, unspecified | CPT/HCPCS: 20560; 97010; 97014; 97110; G0283 ==

== ENCOUNTER 2024-08-25 15:07 | Outpatient (CLI) | payer OTHER, BC, SELFPAY ==
--- NOTE | 2024-08-25 15:11 | MR_ITS ---
PROCEDURE INFORMATION: Exam: MR Lumbar Spine Without Contrast Exam date and time: 08/25/2024 3:30 PM Age: 59 years old Clinical indication: Low back pain; Additional info: Chronic worsening low back pain TECHNIQUE: Imaging protocol: Magnetic resonance imaging of the lumbar spine without contrast. COMPARISON: CR XR LUMBAR SPINE 2-3V 08/12/2024 11:30 AM FINDINGS: Bones/joints: Vertebral body heights, alignment are within normal limits. Endplate changes are noted at L5-S1. Spondylosis is noted at T11-12 and the lower lumbar spine with disc bulging and facet arthropathy. At L3-L4 there is disc bulging and facet arthropathy but no significant canal narrowing and mild neural foraminal stenosis. Spinal cord: Visualized cord, conus medullaris and cauda equina are unremarkable without compression. L1-L2: No significant disc bulge or herniation. No severe spinal canal stenosis. No significant neural foraminal narrowing. L2-L3: No significant disc bulge or herniation. No severe spinal canal stenosis. No significant neural foraminal narrowing. L3-L4: No significant disc bulge or herniation. No severe spinal canal stenosis. No significant neural foraminal narrowing. L4-L5: At L4-L5 there is disc bulging with a small central protrusion and facet arthropathy. There is olur-sw-[id number] neural foraminal narrowing. L5-S1: At L5-S1 there is disc bulging with a central protrusion which indents the thecal sac and midline. There is moderate to severe neural foraminal narrowing, worse on the left. Soft tissues: Unremarkable. IMPRESSION: Low lumbar spondylosis as noted most notable at L5-S1. Lower thoracic spondylosis incompletely evaluated on this study. Noncontrast MRI of the thoracic spine may be performed to more completely assess.
--- NOTE | 2024-08-25 15:11 | MR_ITS ---
PROCEDURE INFORMATION: Exam: MR Pelvis Without Contrast Exam date and time: 08/25/2024 3:30 PM Age: 59 years old Clinical indication: Pelvic pain; Additional info: Buttock pain. Chronic sciatica pain TECHNIQUE: Imaging protocol: Magnetic resonance imaging of the pelvis without contrast. COMPARISON: CT ABDOMEN PELVIS WO CON 09/21/2021 10:39 AM FINDINGS: Intestine: Diverticula in the sigmoid colon without evidence of diverticulitis. abnormalities. Intraperitoneal space: No pelvic masses. No free fluid. Urinary bladder: No wall thickening or masses. Reproductive: Retroflexed uterus has a few hypointense fibroids that measure 2 cm or less in diameter. No endometrial or cervix. Lymph nodes: No lymphadenopathy. Bones/joints: No bone marrow edema or erosions in the sacroiliac joints. Joint spaces are well preserved. No fractures or bone lesions in the sacrum and visualized pelvis. Moderate to severe disc space narrowing at L4-L5 with a small central disc extrusion that causes no significant mass effects. No abnormalities in the sacral plexus or sciatic nerves. Soft tissues: No subcutaneous or muscle masses in the buttocks. IMPRESSION: 1. No abnormalities in the sacral plexus. No pelvic masses. 2. Small central disc extrusion at L5-S1 causes no abnormal mass effects or spinal stenosis. 3. No abnormalities in the sacroiliac joints. 4. No subcutaneous or muscle masses. 5. Several uterine fibroids. 6. Diverticulosis in the sigmoid colon without evidence of diverticulitis.
== END 2024-08-25 23:59 | disposition home or self-care (01) ==
LOC: RAD 15:08
PROVIDERS: Visit Provider Nurse Practitioner Family
DX: G57.03 Lesion of sciatic nerve, bilateral lower limbs (principal); M79.18 Myalgia, other site
CPT/HCPCS: 72148; 72195

== ENCOUNTER 2024-09-06 14:01 | Outpatient (POV) | payer OTHER, BC, SELFPAY ==
--- OUTSIDE RECORDS SUMMARY | 2024-09-06 14:03 | XMS_ITS ---
Author Organization Unknown Medications Medication Instructions Effective Dates (start - stop) Status 1 ML alirocumab 150 MG/ML Auto-Injector [Praluent] [id number]:00:00.000+00:0 0 - Completed prednisolone acetate 10 MG/M L Ophthalmic Suspension [id number]:00:00.000+00:0 0 - Completed 12 HR ranolazine 500 MG Exte nded Release Oral Tablet [id number]:00:00.000+00:0 0 - Completed 1 ML alirocumab 150 MG/ML Auto-Injector [Praluent] [id number]:00:00.000+00:0 0 - Completed 1 ML alirocumab 150 MG/ML Auto-Injector [Praluent] [id number]:00:00.000+00:0 0 - Completed triamcinolone acetonide 1 MG /ML Topical Cream [id number]:00:00.000+00:0 0 - Completed nitroglycerin 0.4 MG Subling ual Tablet [id number]:00:00.000+00:0 0 - Completed empagliflozin 25 MG Oral Tab let [Jardiance] [id number]:00:00.000+00:0 0 - Completed clopidogrel 75 MG Oral Tablet 16-12-23T:00:00.000+00:0 0 - Completed empagliflozin 25 MG Oral Tab let [Jardiance] [id number]:00:00.000+00:0 0 - Completed isosorbide dinitrate 30 MG O ral Tablet [id number]:00:00.000+00:0 0 - Completed 24 HR isosorbide mononitrate 120 MG Extended Release Oral Tablet [id number]:00:00.00 0+00:0 0 - Completed metoprolol tartrate 100 MG O ral Tablet [id number]:00:00.000+00:0 0 - Completed 24 HR metoprolol succinate 1 00 MG Extended Release Oral Tablet 7833-46-00Z75:00:00.000+0 0:0 0 - Completed nitroglycerin 0.4 MG Subling ual Tablet [id number]:00:00.000+00:0 0 - Completed progesterone 100 MG Oral Capsule [id number]:00:00.000+00:0 0 - Completed empagliflozin 25 MG Oral Tab let [Jardiance] [id number]:00:00.000+00:0 0 - Completed isosorbide dinitrate 30 MG O ral Tablet [id number]:00:00.000+00:0 0 - Completed metoprolol tartrate 100 MG O ral Tablet [id number]:00:00.000+00:0 0 - Completed metoprolol tartrate 100 MG O ral Tablet [id number]:00:00.000+00:0 0 - Completed isosorbide dinitrate 30 MG O ral Tablet [id number]:00:00.000+00:0 0 - Completed 24 HR isosorbide mononitrate 30 MG Extended Release Oral Tablet [id number]:00:00.000+0 0:0 0 - Completed nitroglycerin 0.4 MG Subling ual Tablet [id number]:00:00.000+00:0 0 - Completed cyclobenzaprine hydrochlorid e 10 MG Oral Tablet [id number]:00:00.000+00:0 0 - Completed progesterone 100 MG Oral Capsule [id number]:00:00.000+00:0 0 - Completed lisinopril 2.5 MG Oral Tablet 15-02-12:00:00.000+00:0 0 - Completed estradiol 1 MG Oral Tablet :00:00.000+00:0 0 - Completed progesterone 100 MG Oral Capsule [id number]:00:00.000+00:0 0 - Completed estradiol 1 MG Oral Tablet :00:00.000+00:0 0 - Completed estradiol 1 MG Oral Tablet :00:00.000+00:0 0 - Completed clopidogrel 75 MG Oral Tablet 15-09-18:00:00.000+00:0 0 - Completed lisinopril 2.5 MG Oral Tablet 16-09-11:00:00.000+00:0 0 - Completed 0.25 MG, 0.5 MG Dose 1.5 ML semaglutide 1.34 MG/ML Pen Injector [Ozempic] [id number]:00:00.000+00:0 0 - Completed 24 HR metformin hydrochlorid e 500 MG Extended Release Oral Tablet [id number]:00:00.00 0+00:0 0 - Completed estradiol 1 MG Oral Tablet :00:00.000+00:0 0 - Completed progesterone 100 MG Oral Capsule [id number]:00:00.000+00:0 0 - Completed progesterone 100 MG Oral Capsule [id number]:00:00.000+00:0 0 - Completed 24 HR metformin hydrochlorid e 500 MG Extended Release Oral Tablet [id number]:00:00.00 0+00:0 0 - Completed 24 HR metformin hydrochlorid e 500 MG Extended Release Oral Tablet [id number]:00:00.00 0+00:0 0 - Completed lisinopril 2.5 MG Oral Tablet 16-05-19:00:00.000+00:0 0 - Completed clopidogrel 75 MG Oral Tablet 14-01-09:00:00.000+00:0 0 - Completed 12 HR ranolazine 500 MG Exte nded Release Oral Tablet [id number]:00:00.000+00:0 0 - Completed clopidogrel 75 MG Oral Tablet 15-02-12:00:00.000+00:0 0 - Completed clopidogrel 75 MG Oral Tablet 16-05-20:00:00.000+00:0 0 - Completed naproxen 500 MG Oral Tablet 2022:00:00.000+00:0 0 - Completed metoprolol tartrate 50 MG Or al Tablet [id number]:00:00.000+00:0 0 - Completed benzonatate 100 MG Oral Capsule [id number]:00:00.000+00:0 0 - Completed acetaminophen 325 MG / hydro codone bitartrate 7.5 MG Oral Tablet [id number]:00:00.000+ 00:0 0 - Completed Patient Care team information Name Category Status Period Participants - - Proposed period not known -
[2024-09-06 15:40] VITALS: BP 104/52; PULSE 96; RESP 18; O2SAT 97; BMI 18.6
--- NOTE | 2024-09-06 15:50 | EXP.PAIN.SOA ---
[facility] Disclaimer: The information contained in this section may have been updated after the patient was seen, as this information can be updated by other users. Medical History Diabetes CAD (coronary artery disease) HLD (hyperlipidemia) Chronic back pain H/O irritable bowel syndrome H/O diverticulitis of colon Psoriasis HTN (hypertension) History of placement of stent in LAD coronary artery Surgical History H/O spinal fusion L5/S1 History of open heart surgery 07/22/2022 Double bypass surgery Family History Other No significant family history Social History Smoking Status: Never smoker alcohol intake: never substance use type: denies use current occupational status: other Travel in the last 8 weeks: None household members: family housing: house lives independently: Yes marital status: number of children: 2 number of grandchildren: 2 service: [place] [facility] [place]: No pets and animals: Yes PM Subjective & Objective Subjective Subjective:: Patient is a pleasant 59-year-old female who presents today for worsening pain as well as MRI follow-up of her lumbar and sacral spine. Today she rates her pain a 5 out of 10. She denies any new trauma or injury. She does state that she is still having this severe pain in her low back, buttocks area that does radiate down the back of her legs into the sides. She states it is constant and is interfering with her ability perform activities of daily living such as cooking and cleaning. Patient states the pain is terrible and that she is just miserable. Patient is interested in additional injection therapy. Patient has continued oral medication, heat and ice, topicals, physical therapy that is continuing currently with dry needling and even traction. Patient states that the dry needling typically last for about a week but then she is right back to her baseline. Patient states she is also done at home exercising and stretching for longer than 12 weeks with no additional improvement. Patient does have a history of being very sensitive to certain medications causing increased fatigue. Patient has been prescribed 5 mg baclofen at night from our office. Patient has tried taking this during the day however this did cause additional fatigue. We have tried her on amitriptyline which caused increased drowsiness and that in the past an outside provider did try her on gabapentin but she could not tolerate it due to fatigue. Her David has been reviewed and is appropriate. Review of Systems: General: No recent weight changes, no fever, no sleep disturbances Respiratory: No cough, no shortness of air, no recurring pulmonary infections Cardiovascular/peripheral vascular: No chest pain, no palpitations, no edema, no shortness of breath Gastrointestinal: No new onset incontinence, normal bowel movements reported Genitourinary: No new onset incontinence Musculoskeletal: Low back pain, bilateral leg pain Psychiatric: [Normal mood/affect] Neurological: [Denies weakness in extremities], [denies balance issues] Pain at rest (0-10 scale): 5 Objective Objective:: Physical Exam: General: Alert and oriented x3, no acute distress, pleasant and cooperative Lungs: Respirations even and unlabored, symmetrical chest expansion Eyes: PERRL Musculoskeletal: Flexion and extension of lumbar [spine] somewhat guarded secondary to pain, [antalgic gait noted] positive leg raise Neurological: Speech clear, no gross sensory deficit Has patient had previous pain injection?: No Conservative treatment options previously tried: Home exercise plan Length of treatment: Longer than 12 weeks and Physical Therapy Length of treatment: Ongoing Meds Home Medications and Allergies Home Medications ?Medication ?Instructions ?Recorded ?Confirmed ?Type empagliflozin 25 mg tablet 25 mg PO DAILY Diabetes 04/14/19 09/06/24 History isosorbide dinitrate 30 mg tablet 30 mg PO DAILY Hypertension 04/14/19 09/06/24 History lisinopril 2.5 mg tablet 2.5 mg PO DAILY Hypertension 04/14/19 09/06/24 History metoprolol succinate 100 mg 100 mg PO BID Hypertension 04/14/19 09/06/24 History tablet,extended release 24 hr aspirin 81 mg tablet,delayed 81 mg PO DAILY 12/02/22 09/06/24 History release (Adult Low Dose Aspirin) cyclobenzaprine 10 mg tablet 10 mg PO HS 12/02/22 09/06/24 History naproxen 500 mg tablet 500 mg PO BID PRN . 12/02/22 09/06/24 History semaglutide 0.25 mg or 0.5 mg (2 0.25 mg SQ WEEKLY 12/02/22 09/06/24 History mg/3 mL) subcutaneous pen injector (Ozempic) triamcinolone acetonide 0.1 % 1 applic topical BID #15 grams 12/06/22 09/06/24 Rx topical cream alirocumab 75 mg/mL subcutaneous 75 mg SQ Q2W 11/06/23 09/06/24 History pen injector (Praluent Pen) clopidogrel 75 mg tablet (Plavix) 75 mg PO DAILY 11/06/23 09/06/24 History ixekizumab 80 mg/mL subcutaneous 80 mg SQ Q4W 11/06/23 09/06/24 History auto-injector (Taltz Autoinjector) estradiol 0.5 mg tablet 0.5 mg PO DAILY 12/04/23 09/06/24 History progesterone micronized 100 mg 100 mg PO DAILY 12/04/23 09/06/24 History capsule baclofen 5 mg tablet 5 mg PO BID #60 tabs 05/13/24 09/06/24 Rx amitriptyline 10 mg tablet 10 mg PO HS #14 tabs 06/23/24 09/06/24 Rx azithromycin 250 mg tablet See Rx Instructions PO .COMPLEX #6 07/16/24 09/06/24 Rx (Zithromax Z-Marin) tabs kitgzqykianqlgm-nxfaciodtkvihkr-[place] 5 ml PO Q4-6H PRN cold symptoms 07/16/24 09/06/24 Rx 2 mg-30 mg-10 mg/5 mL oral syrup #118 mL (Bromfed DM) escitalopram oxalate 10 mg tablet See Rx Instructions .Route 08/14/24 09/06/24 Rx .COMPLEX #30 tabs New Prescriptions to Start Prescriptions: Allergies Allergy/AdvReac Type Severity Reaction Status Date / Time No Known Allergies Allergy Verified 07/16/24 09:53 Assessment and Plan *Assessment and plan (1) Lumbar radiculopathy: Status: Acute Category: Medical Code(s): M54.16 - Radiculopathy, lumbar region (2) Degenerative disc disease: Status: Acute Category: Medical (3) Lumbar spinal stenosis: Status: Acute Category: Medical Code(s): M48.061 - Spinal stenosis, lumbar region without neurogenic claudication Plan Patient is experiencing worsening pain in her low back with numbness and tingling into her lower extremities. Patient did state the pain does radiate down the back of her legs and over to the lateral side. Patient did have limited range of motion of her lumbar spine with a positive leg raise. I did discuss with patient that I do believe they would benefit from a lumbar epidural steroid injection. Risk and benefits were discussed with patient and the patient would like to proceed forward with this plan of care. Patient is on Plavix currently written by Dr. Schuster. We will reach out to this provider and confirm that she can stop this medication prior to this procedure.. Patient has tried and failed conservative therapy including continued at home stretching exercise for longer than 12 weeks between injections. Patient is still continuing ongoing physical therapy with no additional improvement or only temporary relief. Patient has had longstanding chronic low back and leg symptoms that have progressively worsened over the last 6 months or more. Patient did previously have a lumbar epidural back in August that provided 50% initially and then did decrease down with relief. This injection was at the L4-L5 level. I did review over her updated MRI with significant narrowing in the central canal as well as the bilateral neuroforaminal narrowing at the L5-S1 level. I have recommended that we do this level as how she describes her pain does follow the dermatome of the L5?S1 distribution. We will schedule the patient for an LESI L5-S1 under fluoroscopy. I will also send in a 2-week dose of pregabalin 25 mg at bedtime. Patient has been instructed to contact the clinic with any concerns before the next appointment. Dr. Easton has reviewed this note and agrees with this plan of care. This note was dictated using voice recognition software and make contain errors or omissions. All injections are used with Lidocaine, Bupivacaine and Depo Medrol. Occasionally urine drug screen is needed to verify patient's compliance with our office pain contract. This is ordered based off specific treatments related to chronic pain with the potential to abuse certain medications.
== END 2024-09-06 23:59 | disposition home or self-care (01) ==
PROVIDERS: PCP Student in an Organized Health Care Education/Training Program; Visit Provider Nurse Practitioner Family
DX: M54.16 Radiculopathy, lumbar region (principal); M48.061 Spinal stenosis, lumbar region without neurogenic claudication; Z73.89 Other problems related to life management difficulty; Z79.899 Other long term (current) drug therapy; Z79.02 Long term (current) use of antithrombotics/antiplatelets
CPT/HCPCS: 99212; G0463

== ENCOUNTER 2024-09-13 14:00 | Outpatient (RCR) | payer OTHER, BC, SELFPAY ==
--- NOTE | 2024-08-31 18:17 | HMH.RHREAS ---
Rehab Reassessment Rehab OP Re-assessment Start: 08/31/24 16:32 Freq: Status: Active Protocol: Document 08/31/24 16:40 NOHEMICamila (Rec: 08/31/24 18:17 CAMILLA [id number]) E-signed By Twyla Melchor PT Oswestry Index Section 1 Pain Intensity The pain comes and goes and is severe Section 2 Personal Care (Washing,Dresing) increase the pain, but I manage not to change my way of doing it Section 3 Lifting I can only lift very light weights at most Section 4 Walking I cannot walk more than 1/2 mile without increasing pain Section 5 Sitting Pain prevents me from sitting for more than 10 minutes Section 6 Standing I cannot stand more than 1 hour without increasing pain Section 7 Sleeping Because of my pain, my normal night's sleep is less than 4 hours Section 8 Social Life Pain has no significant effect on my social life apart from limiting Section 9 Traveling I get extra pain while traveling which compels me to seek alternate fo Section 10 Changing Degreee of Pain My pain is gradually getting worse Score and Risk Level Oswestry Sc 32 Oswestry Risk Level Severe Disability Rehab Re-assessment Subjective Subjective Pt reports she feels 20% improved since starting PT. Pt reports she has been unable to attend PT in 19 days due to her schedule and waiting to get a lumbar spine MRI performed; however, reports compliance with HEP. Pt reports she gets only short- term relief with extension based HEP and 1 week of relief with dry needling. Pt reports she continues to have constant L>R low back pain and intermittent radiating pain down L>R posterior legs to the knee. Pt describes leg pain as an ache unless she sit for 15-20 minutes then it is a hot , burning pain. Pt denies b/b dysfunction. Pt reports pain at worst as 10/10 with sitting /bending/lifting and on average as 5/10 on VAS. Pt states she tosses and turns all night long and is unable to sleep well due to pain. Pt reports she had a lumbar spine MRI on 08/25/24 with impression of Low lumbar spondylosis as noted most notable at L5-S1. Most significant findings are as follows: At L4-L5 there is disc bulging with a small central protrusion and facet arthropathy. There is mild-to- moderate neural foraminal narrowing. At L5-S1 there is disc bulging with a central protrusion which indents the thecal sac and midline. There is moderate to severe neural foraminal narrowing, worse on the left. Objective Objective Notes Palpation: 2/ TTP of L4-5, L5 -S1, Left piriformis mm Lumbar AROM: flex 45, ext 15, LF 10 LLE MMT: / grossly Assessment Assessment Notes Pt has attended only 6 PT treatment sessions since her initial evaluation performed on 07/19/24. Pt demonstrated improved DIANN score this date compared to the initial evaluation. Pt demonstrated regression in lumbar AROM and no change in tenderness to palpation. Pt continues to report constant low back pain and intermittent L>R radiating LE pain rated 10/10 at worst impairing her function, quality of life and sleep health. Overall, the pt would continue to benefit from skilled PT to assist with subjective report of pain, lumbar AROM, LE/core strength, and functional activity tolerance to improve overall QOL. Due to severity & chronicity of symptoms, along with MRI results, will also refer t back to MD for further pain management and treatment options. Patient goals met ST/5 Goals Not Met lumbar AROM, p! at worst, LTG Revised Goals n/a Plan Plan Continue POC and refer back to MD for further pain management options due to severity & chronicity of symptoms Frequency of Therapy 2x/week Duration of therapy 4 more weeks Time and Billing Re-Eval Time 15 Re-Eval Billing Units 0 Charge for PT reassessment? No Charge for OT reassessment? No PHYSICIAN CERTIFICATION: I certify the specified therapy services for Gloria Atwood are required, authorized, and reviewed every 30 days.
== END 2024-09-13 23:59 | disposition home or self-care (01) ==
LOC: PT 14:00
PROVIDERS: Visit Provider Nurse Practitioner Family
DX: G57.03 Lesion of sciatic nerve, bilateral lower limbs (principal); M54.50 Low back pain, unspecified
CPT/HCPCS: 20560; 97012; 97014; 97110; G0283

== ENCOUNTER 2024-10-05 14:26 | Day surgery (SDC) | payer OTHER, BC, SELFPAY ==
[2024-10-05 14:32] VITALS: BP 101/50; PULSE 91; RESP 16; TEMP 36.4; O2SAT 100; BMI 19.5
[2024-10-05] MEDS: DEXAMETHASONE 10MG/ML 1ML VIAL 10 MG (14:40)
[2024-10-05 14:41] VITALS: BP 97/54; PULSE 89; RESP 18; O2SAT 98
[2024-10-05 14:43] VITALS: BP 97/54; PULSE 89; RESP 18; O2SAT 98
[2024-10-05 14:49] VITALS: BP 90/63; PULSE 93; RESP 16; O2SAT 91
--- NOTE | 2024-10-05 14:49 | EXP.PAIN.PRO ---
Procedure Date: 10/05/24 Time: 14:40 Anesthesiologist:: Jose Bonds CRNA Complications:: None Pre-procedure Diagnosis:: Degenerative disc lumbar spine multilevels. Lumbar radiculopathy. Post-procedure Diagnosis:: Same Indications for Procedure:: Patient is a pleasant 59-year-old female who comes our clinic today for lumbar epidural steroid injection at the L5-S1 level. Patient describes minimal low lumbar back pain. However, her main issue is left hip and leg radicular symptoms. Pain is in the posterior hip as well as the anterior thigh to the knee. Patient reports having some relief with prior sacroiliac joint injections. However, nothing is really given her lasting relief. She rates her pain 7/10. Patient's recent lumbar MRI shows bilateral neuroforaminal narrowing at the 5 S1 level. Greater on the left than right. If in fact the intralaminar epidural does not give her adequate relief I would consider transforaminal epidural steroid injection at the left L5-S1 level. Procedure Details:: Procedure: Lumbar epidural steroid injection under fluoroscopy Informed consent was obtained and the risks and benefits of the procedure were explained to the patient. The patient was taken to the procedure room and noninvasive monitors placed, including noninvasive blood pressure cuff and pulse oximeter. The back was viewed using C-arm Fluoroscopy and prepped using Chloraprep as a cleansing solution and the 5 S1 interspace was palpated. Skin and subcutaneous tissues were anesthetized using lidocaine 1.5% and a 25-gauge needle. After this, an 18-gauge Touhy epidural needle was placed into the L5-S1 interspace and advanced using fluoroscopic guidance and loss of resistance to air until the epidural space was encountered. After confirmation of needle placement in the epidural space, with dye, a solution containing normal saline, 3 mL and Depo-Medrol 80 mg were incrementally injected into the lumbar epidural space. The patient tolerated the procedure well with no complications. The patient was observed in the Pain Clinic and then discharged home neurologically intact. Plan and Disposition:: Patient was discharged without incident.
== END 2024-10-05 14:49 | disposition home or self-care (01) ==
PROVIDERS: PCP Student in an Organized Health Care Education/Training Program; Visit Provider Nurse Anesthetist, Certified Registered
DX: M51.16 Intervertebral disc disorders with radiculopathy, lumbar region (principal)
CPT/HCPCS: 62323; J1100

== ENCOUNTER 2024-11-11 13:48 | Outpatient (POV) | payer OTHER, BC, SELFPAY ==
--- OUTSIDE RECORDS SUMMARY | 2024-11-11 13:51 | XMS_ITS | Clinical Summary ---
Author Organization Healthcare Address [address] [place] [address] Care Team Providers Care Import Clerk Name Role Phone Pcp, No Primary Care Provider Unavailabl e Social History Tobacco Use Types Packs/Day Years Used Date Smoking Tobacco: Every Day Comments Unknown Sex and Gender Information Value Date Recorded Sex Assigned at Not on file Legal Sex Female 8:31 PM EDT Gender Identity Not on file Sexual Orientation Not on file Last Filed Vital Signs Vital Sign Reading Time Taken Comments Blood Pressure - - Pulse - - Temperature - - Respiratory Rate - - Oxygen Saturation - - Inhaled Oxygen Concentration - - Weight 58.6 kg (129 lb 3 oz) 10/02/2011 3:22 PM EDT Height 152.4 cm (5') 03/28/2011 11:45 AM EDT Body Mass Index 25.23 03/28/2011 11:45 AM EDT Plan of Treatment Health Maintenance Due Date Last Done Comments [facility]-Depression Screening 1965 [facility]-/Child/Adol SDOH Screenings 1965 [facility]- SDOH Screenings 1983 [facility]-Adult SDOH Screenings 1983 [facility]-DTaP,Tdap,and Td Vaccine s (1 - Tdap) 01/09/1984 [facility]-Hepatitis B Vaccines (1 of 3 - 19+ 3-dose series) 01/09/1984 [facility]-Pap Smear 1986 [facility]-Cervical Cancer Screening 1995 [facility]-HPV/Cotest 1995 CT Colonography 2010 Colonoscopy 2010 FIT-DNA 2010 FIT 2010 FOBT 2010 Sigmoidoscopy 2010 [facility]-Colorectal Cancer Screening 2010 [facility]-Pneumococcal Vaccine: 50 + Years (1 of 1 - PCV) 2015 [facility]-Zoster Vaccines (1 of 2) 2015 [id number] Vaccine ( 20 24-25 season) 2024 [facility]-Influenza Vaccine (Seas[place] n Ended) 2025 HPV Vaccines Aged Out No longer eligi ble based on patient's age to complete this topic [facility]-HIB Vaccines Aged Out No longer e ligible based on patient's age to complete this topic [facility]-Hepatitis A Vaccines Aged Out No longer eligible based on patient's age to complete this topic [facility]-IPV Vaccines Aged Out No longer e ligible based on patient's age to complete this topic [facility]-Rotavirus Vaccines Aged Out No lo nger eligible based on patient's age to complete this topic Insurance [employer] Care Teams Import Clerk Relationship Specialty Start Date End Date Pcp, [facility] [address] [place] [address] PCP - General Family Medicine 10/08/23
--- OUTSIDE RECORDS SUMMARY | 2024-11-11 13:51 | XMS_ITS ---
Author Organization Unknown Medications Medication Instructions Effective Dates (start - stop) Status 1 ML alirocumab 150 MG/ML Auto-Injector [Praluent] [id number]:00:00.000+00:0 0 - Completed prednisolone acetate 10 MG/M L Ophthalmic Suspension [id number]:00:00.000+00:0 0 - Completed 12 HR ranolazine 500 MG Exte nded Release Oral Tablet [id number]:00:00.000+00:0 0 - Completed 1 ML alirocumab 150 MG/ML Auto-Injector [Praluent] [id number]:00:00.000+00:0 0 - Completed 1 ML alirocumab 150 MG/ML Auto-Injector [Praluent] [id number]:00:00.000+00:0 0 - Completed triamcinolone acetonide 1 MG /ML Topical Cream [id number]:00:00.000+00:0 0 - Completed nitroglycerin 0.4 MG Subling ual Tablet 0900-34-71K99:00:00.000+00:0 0 - Completed empagliflozin 25 MG Oral Tab let [Jardiance] [id number]:00:00.000+00:0 0 - Completed clopidogrel 75 MG Oral Tablet 16-12-23T:00:00.000+00:0 0 - Completed empagliflozin 25 MG Oral Tab let [Jardiance] [id number]:00:00.000+00:0 0 - Completed isosorbide dinitrate 30 MG O ral Tablet [id number]:00:00.000+00:0 0 - Completed 24 HR isosorbide mononitrate 120 MG Extended Release Oral Tablet 4660-90-46W78:00:00.00 0+00:0 0 - Completed metoprolol tartrate 100 MG O ral Tablet 0482-24-06H66:00:00.000+00:0 0 - Completed 24 HR metoprolol succinate 1 00 MG Extended Release Oral Tablet [id number]:00:00.000+0 0:0 0 - Completed nitroglycerin 0.4 MG Subling ual Tablet [id number]:00:00.000+00:0 0 - Completed progesterone 100 MG Oral Capsule [id number]:00:00.000+00:0 0 - Completed empagliflozin 25 MG Oral Tab let [Jardiance] [id number]:00:00.000+00:0 0 - Completed isosorbide dinitrate 30 MG O ral Tablet [id number]:00:00.000+00:0 0 - Completed metoprolol tartrate 100 MG O ral Tablet 4442-80-00O43:00:00.000+00:0 0 - Completed metoprolol tartrate 100 MG O ral Tablet [id number]:00:00.000+00:0 0 - Completed isosorbide dinitrate 30 MG O ral Tablet [id number]:00:00.000+00:0 0 - Completed 24 HR isosorbide mononitrate 30 MG Extended Release Oral Tablet [id number]:00:00.000+0 0:0 0 - Completed nitroglycerin 0.4 MG Subling ual Tablet [id number]:00:00.000+00:0 0 - Completed cyclobenzaprine hydrochlorid e 10 MG Oral Tablet [id number]:00:00.000+00:0 0 - Completed progesterone 100 MG Oral Capsule 1974-04-74R88:00:00.000+00:0 0 - Completed lisinopril 2.5 MG Oral Tablet 15-02-12:00:00.000+00:0 0 - Completed estradiol 1 MG Oral Tablet :00:00.000+00:0 0 - Completed progesterone 100 MG Oral Capsule [id number]:00:00.000+00:0 0 - Completed estradiol 1 MG Oral Tablet :00:00.000+00:0 0 - Completed estradiol 1 MG Oral Tablet :00:00.000+00:0 0 - Completed clopidogrel 75 MG Oral Tablet 15-09-18:00:00.000+00:0 0 - Completed lisinopril 2.5 MG Oral Tablet 16-09-11:00:00.000+00:0 0 - Completed 0.25 MG, 0.5 MG Dose 1.5 ML semaglutide 1.34 MG/ML Pen Injector [Ozempic] [id number]:00:00.000+00:0 0 - Completed 24 HR metformin hydrochlorid e 500 MG Extended Release Oral Tablet [id number]:00:00.00 0+00:0 0 - Completed estradiol 1 MG Oral Tablet :00:00.000+00:0 0 - Completed progesterone 100 MG Oral Capsule [id number]:00:00.000+00:0 0 - Completed progesterone 100 MG Oral Capsule [id number]:00:00.000+00:0 0 - Completed 24 HR metformin hydrochlorid e 500 MG Extended Release Oral Tablet [id number]:00:00.00 0+00:0 0 - Completed 24 HR metformin hydrochlorid e 500 MG Extended Release Oral Tablet [id number]:00:00.00 0+00:0 0 - Completed lisinopril 2.5 MG Oral Tablet 16-05-19:00:00.000+00:0 0 - Completed clopidogrel 75 MG Oral Tablet 14-01-09:00:00.000+00:0 0 - Completed 12 HR ranolazine 500 MG Exte nded Release Oral Tablet [id number]:00:00.000+00:0 0 - Completed clopidogrel 75 MG Oral Tablet 15-02-12:00:00.000+00:0 0 - Completed clopidogrel 75 MG Oral Tablet 16-05-20:00:00.000+00:0 0 - Completed naproxen 500 MG Oral Tablet 2022:00:00.000+00:0 0 - Completed metoprolol tartrate 50 MG Or al Tablet [id number]:00:00.000+00:0 0 - Completed benzonatate 100 MG Oral Capsule [id number]:00:00.000+00:0 0 - Completed acetaminophen 325 MG / hydro codone bitartrate 7.5 MG Oral Tablet [id number]:00:00.000+ 00:0 0 - Completed Patient Care team information Name Category Status Period Participants - - Proposed period not known -
--- NOTE | 2024-11-11 14:03 | EXP.PAIN.SOA ---
[facility] Disclaimer: The information contained in this section may have been updated after the patient was seen, as this information can be updated by other users. Medical History Diabetes CAD (coronary artery disease) HLD (hyperlipidemia) Chronic back pain H/O irritable bowel syndrome H/O diverticulitis of colon Psoriasis HTN (hypertension) History of placement of stent in LAD coronary artery Surgical History H/O spinal fusion L5/S1 History of open heart surgery 07/22/2022 Double bypass surgery Family History Other No significant family history Social History Smoking Status: Never smoker alcohol intake: never substance use type: denies use current occupational status: other Travel in the last 8 weeks?: None household members: family housing: house lives independently: Yes marital status: number of children: 2 number of grandchildren: 2 service: No shelter: No pets and animals: Yes PM Subjective & Objective Subjective Subjective:: Patient is a pleasant 59-year-old female who presents today for follow-up of her lumbar epidural steroid injection L5-S1 on 10/05/2024. She does state that she has had 80% improvement and feels like it is still working well. She rates her pain today a 2 out of 10. She denies any changes. Patient does feel like between this and the pregabalin 25 mg twice a day it has really made all the difference. Patient does feel much more functional. Her David has been reviewed and is appropriate. Review of Systems: General: No recent weight changes, no fever, no sleep disturbances Respiratory: No cough, no shortness of air, no recurring pulmonary infections Cardiovascular/peripheral vascular: No chest pain, no palpitations, no edema, no shortness of breath Gastrointestinal: No new onset incontinence, normal bowel movements reported Genitourinary: No new onset incontinence Musculoskeletal: Low back pain Psychiatric: [Normal mood/affect] Neurological: [Denies weakness in extremities], [denies balance issues] Pain at rest (0-10 scale): 2 Objective Objective:: Physical Exam: General: Alert and oriented x3, no acute distress, pleasant and cooperative Lungs: Respirations even and unlabored, symmetrical chest expansion Eyes: PERRL Musculoskeletal: Flexion and extension of lumbar [spine] within normal limits Neurological: Speech clear, no gross sensory deficit Has patient had previous pain injection?: Yes Percent improvement in pain since last injection: 80% Conservative treatment options previously tried: Home exercise plan Length of treatment: Longer than 12 weeks Meds Home Medications and Allergies Home Medications ?Medication ?Instructions ?Recorded ?Confirmed ?Type empagliflozin 25 mg tablet 25 mg PO DAILY Diabetes 04/14/19 10/05/24 History isosorbide dinitrate 30 mg tablet 30 mg PO DAILY Hypertension 04/14/19 10/05/24 History lisinopril 2.5 mg tablet 2.5 mg PO DAILY Hypertension 04/14/19 10/05/24 History metoprolol succinate 100 mg 100 mg PO BID Hypertension 04/14/19 10/05/24 History tablet,extended release 24 hr aspirin 81 mg tablet,delayed 81 mg PO DAILY 12/02/22 10/05/24 History release (Adult Low Dose Aspirin) cyclobenzaprine 10 mg tablet 10 mg PO HS 12/02/22 10/05/24 History naproxen 500 mg tablet 500 mg PO BID PRN . 12/02/22 10/05/24 History semaglutide 0.25 mg or 0.5 mg (2 0.25 mg SQ WEEKLY 12/02/22 10/05/24 History mg/3 mL) subcutaneous pen injector (Ozempic) triamcinolone acetonide 0.1 % 1 applic topical BID #15 grams 12/06/22 10/05/24 Rx topical cream alirocumab 75 mg/mL subcutaneous 75 mg SQ Q2W 11/06/23 10/05/24 History pen injector (Praluent Pen) clopidogrel 75 mg tablet (Plavix) 75 mg PO DAILY 11/06/23 10/05/24 History ixekizumab 80 mg/mL subcutaneous 80 mg SQ Q4W 11/06/23 10/05/24 History auto-injector (Taltz Autoinjector) estradiol 0.5 mg tablet 0.5 mg PO DAILY 12/04/23 10/05/24 History progesterone micronized 100 mg 100 mg PO DAILY 12/04/23 10/05/24 History capsule baclofen 5 mg tablet 5 mg PO BID #60 tabs 12/19/24 05/13/25 Rx amitriptyline 10 mg tablet 10 mg PO HS #14 tabs 06/23/24 10/05/24 Rx azithromycin 250 mg tablet See Rx Instructions PO .COMPLEX #6 07/16/24 10/05/24 Rx (Zithromax Z-Marin) tabs ejnmfqlgfhtxuss-hflixstwwvolgjx-DD 5 ml PO Q4-6H PRN cold symptoms 07/16/24 10/05/24 Rx 2 mg-30 mg-10 mg/5 mL oral syrup #118 mL (Bromfed DM) escitalopram oxalate 10 mg tablet See Rx Instructions .Route 08/14/24 10/05/24 Rx .COMPLEX #30 tabs pregabalin 25 mg capsule 25 mg PO BID #60 caps 11/10/24 Rx New Prescriptions to Start Prescriptions: Allergies Allergy/AdvReac Type Severity Reaction Status Date / Time No Known Allergies Allergy Verified 07/16/24 09:53 Assessment and Plan *Assessment and plan (1) Lumbar spinal stenosis: Status: Acute Category: Medical Code(s): M48.061 - Spinal stenosis, lumbar region without neurogenic claudication (2) Degenerative disc disease: Status: Acute Category: Medical (3) Lumbar radiculopathy: Status: Acute Category: Medical Code(s): M54.16 - Radiculopathy, lumbar region Plan Patient has had significant improvement following her lumbar epidural and does not require any additional injection therapy at this time. I will make sure that she does have refills on her pregabalin and we will plan on doing 90-day refills from here on out. Patient will return to clinic in 6 weeks for reevaluation of symptoms and plan of care. Patient has been instructed to contact the clinic with any concerns before the next appointment. Dr. Easton has reviewed this note and agrees with this plan of care. This note was dictated using voice recognition software and make contain errors or omissions. All injections are used with Lidocaine, Bupivacaine and dexamethasone. Occasionally urine drug screen is needed to verify patient's compliance with our office pain contract. This is ordered based off specific treatments related to chronic pain with the potential to abuse certain medications.
[2024-11-11 14:05] VITALS: BP 104/58; PULSE 88; RESP 14; O2SAT 100; BMI 19.5
== END 2024-11-11 23:59 | disposition home or self-care (01) ==
PROVIDERS: Visit Provider Nurse Practitioner Family
DX: M48.062 Spinal stenosis, lumbar region with neurogenic claudication (principal); Z79.899 Other long term (current) drug therapy
CPT/HCPCS: 99212; G0463

== ENCOUNTER 2024-12-23 10:11 | Outpatient (POV) | payer OTHER, BC, SELFPAY ==
--- OUTSIDE RECORDS SUMMARY | 2024-11-15 10:45 | XMS_ITS | Encounter Summary ---
[facility] [address] [place] [address] Care Team Providers Care Meat Molder Name Role Phone Kari Alarcon Primary Care Provider [phone] Reason for Visit * Reason Comments Diabetes Encounter Details Date Type Department Care Team (Late st Contact Info) Description 11/15/2024 10:45 AM EDT Office Visit [facility] [address] [place] [address] Vanessa Valadez, [address] [place] [address] Type 2 diabetes mellitus with hyperglycemia, without long-term current use of insulin (Primary Dx); Mixed hyperlipidemia Social History Tobacco Use Types Packs/Day Years Used Date Smoking Tobacco: Never Passive Smoke Exposure: Never Smokeless Tobacco: Never Alcohol Use Standard Drinks/Week Comments No 0 (1 standard drink = 0.6 oz pur e alcohol) AUDIT-C Answer Date Recorded Q1: How often do you have a drink containing alcohol? Never 07/24/2022 Q2: How many drinks containi ng alcohol do you have on a typical day when you are drinking? Patient does not drink Q3: How often do you have si x or more drinks on one occasion? Never 07/24/2022 Abuse Screen Answer Date Recorded Feels Unsafe at Home or Work/School no 2024 Feels Threatened by Someone no 12/24 Does Anyone Try to Keep You From Having Contact with Others or Doing Things Outside Your Home? no 2024 Physical Signs of Abuse Present no 2024 Housing Stability Answer Date Recorded Current Living Arrangements home 06/27 Potentially Unsafe Housing Conditions Not on [email or web address] e 07/23/2022 Disabilities Answer Date Recorded Difficulty Concentrating, Remembering or Making Decisions no 07/22/2022 Difficulty Managing Errands Independently no 07/22/2022 Education Answer Date Recorded Help with school or training? Not on file Preferred Language Greenlandic 2024 Comments No Sex and Gender Information Value Date Recorded Sex Assigned at Not on file Legal Sex Female 1:46 PM EDT Gender Identity Not on file Sexual Orientation Not on file Occupation Industry Job Start Date Job End Date registered nurse Not on file Not on file Not on file documented as of this encounter Last Filed Vital Signs Vital Sign Reading Time Taken Comments Blood Pressure 106/68 11/15/2024 10:23 AM EDT Pulse - - Temperature - - Respiratory Rate - - Oxygen Saturation - - Inhaled Oxygen Concentration - - Weight 45.4 kg (100 lb) 11/15/2024 10:23 AM EDT Height 152.4 cm (5') 11/15/2024 10:23 AM EDT Body Mass Index 19.53 11/15/2024 10:23 AM EDT documented in this encounter Progress Notes * Vanessa Valadez DO - 11/15/2024 11:08 AM EDTAssociated Problem(s): Mixed hyperlipidemia Familial hyperlipidemia. LDL remains greater than 200 despite Repatha. She follows with cardiology. * Vanessa Valadez DO - 11/15/2024 11:08 AM EDTAssociated Problem(s): Type 2 diabetes mellitus with hyperglycemia, without long-term current use of insulin Diagnosed 2010. Controlled with A1c down to 7.1. Mild neuropathy but suspected due to spinal issues or vascular disease. Complicated by history of CAD. Off metformin, didn't note change in Bgs when 500 mg daily was stopped. Continue jardiance 25 mg daily. Occasional yeast infections. Manageable. Continue ozempic to 0.5 mg weekly. Hasn't tried mounjaro. No longer requiring glipizide XL 2.5 mg daily. Labs 03/2024. Check UMACR at follow-up visit. MF updated today. Optho exam is UTD 04/12/2024 without retinopathy. * Vanessa Valadez, - 11/15/2024 10:45 AM EDT Chief Complaint Patient presents with Diabetes HPI Gloria Atwood is a 59 y.o. female had concerns including Diabetes. She is checking blood sugars 0-1 times per day. Bgs in 100s. Current medications for diabetes include Jardiance 25 mg daily, Ozempic 0.5 mg weekly. Stopped the glipizide due to Bgs running in the 80s. She wasn't feeling well. A1c improved to 7.1. With yeast infections every few months. Her fungal infection on right foot cleared up with treatment. The following portions of the patient's history were reviewed and updated as appropriate: allergies, current medications, past family history, past medical history, past social history, past surgicalhistory, and problem list. Review of Systems Constitutional: Negative. Endocrine: Negative. Physical Exam Vitals reviewed. Constitutional: Appearance: Normal appearance. Cardiovascular: Rate and Rhythm: Normal rate. Pulses: Dorsalis pedis pulses are 2+ on the right side and 2+ on the left side. Pulmonary: Effort: Pulmonary effort is normal. Feet: Right foot: Skin integrity: Skin integrity normal. Toenail Condition: Right toenails are normal. Left foot: Skin integrity: Skin integrity normal. Toenail Condition: Left toenails are normal. Comments: Diabetic Foot Exam Performed and Monofilament Test Performed Monofilament 5/5 bilaterally Neurological: General: No focal deficit present. Mental Status: She is alert. Mental status is at baseline. Psychiatric: Mood and Affect: Mood normal. Behavior: Behavior normal. BP 106/68 Ht 152.4 cm (60 ) Wt 45.4 kg (100 lb) BMI 19.53 kg/m?? Labs and imaging A1C: Lab Results Component Value Date HGBA1C 7.1 (A) 11/15/2024 HGBA1C 8.0 (A) 05/12/2024 Glucose: Lab Results Component Value Date POCGLU 94 11/15/2024 CMP: Lab Results Component Value Date GLUCOSE 267 (H) 07/26/2022 BUN 9 07/26/2022 CREATININE 0.37 (L) 07/26/2022 NA 134 (L) 07/26/2022 K 4.4 2024 CL 100 07/26/2022 CALCIUM 8.0 (L) 07/26/2022 PROTEINTOT 7.3 07/19/2022 ALBUMIN 4.3 07/23/2022 ALT 12 07/19/2022 AST 20 07/19/2022 ALKPHOS 41 07/19/2022 BILITOT 0.2 07/19/2022 GLOB 2.6 07/19/2022 AGRATIO 1.8 07/19/2022 BCR 24.3 07/26/2022 ANIONGAP 7.0 07/26/2022 EGFR 117.8 07/26/2022 Urine Microalbumin: Lab Results Component Value Date MALBCRERATIO 10/17/2022 Comment: Unable to calculate TSH: Lab Results Component Value Date TSH 1.800 01/02/2022 05/07/24 estradiol 42.8, FSH 57.7 03/26/24 CBC wnl, TPO 12, testosterone 27 (normal), LFTs normal, TG 364, LDL 208, T chol 317, HDL 54, Tsh 0.49, A1c 8.0, Vit D 58.5 Assessment and plan Diagnoses and all orders for this visit: 1. Type 2 diabetes mellitus with hyperglycemia, without long-term current use of insulin (Primary) Assessment & Plan: Diagnosed 2010. Controlled with A1c down to 7.1. Mild neuropathy but suspected due to spinal issues or vascular disease. Complicated by history of CAD. Off metformin, didn't note change in Bgs when 500 mg daily was stopped. Continue jardiance 25 mg daily. Occasional yeast infections. Manageable. Continue ozempic to 0.5 mg weekly. Hasn't tried mounjaro. No longer requiring glipizide XL 2.5 mg daily. Labs 03/2024. Check UMACR at follow-up visit. MF updated today. Optho exam is UTD 04/12/2024 without retinopathy. Orders: - POC Glucose, Blood - POC Glycosylated Hemoglobin (Hb A1C) 2. Mixed hyperlipidemia Assessment & Plan: Familial hyperlipidemia. LDL remains greater than 200 despite Repatha. She follows with cardiology. Return in about 6 months (around 05/17/2025) for next scheduled follow up. The patient was instructed to contact the clinic with any interval questions or concerns. Electronically signed by: Vanessa Valadez DO Computer Tape Librarian Please note that portions of this note were completed with a voice recognition program. documented in this encounter Plan of Treatment Upcoming Encounters Date Type Department Care Team (Late st Contact Info) Description 05/30/2025 11:00 AM EST Office Visit [facility] [address] [place] [address] Vanessa Valadez DO [address] [place] [address] Scheduled Procedures Name Priority Associated Diagnoses Date/Ti me LEFT HEART CATH w/cors Unstable angina pectoris documented as of this encounter Procedures Procedure Name Priority Date/Time Associated Diagnosis Comments POCT GLYCOSYLATED HEMOGLOBIN (HGB A1C) Routine 11/15/2024 10:38 AM EDT Type 2 diabetes mellitus with hyperglycemia, without long-term current use of insulin POCT GLUCOSE, BLD (NON STRIP) Routine 11/15/2024 10:37 AM EDT Type 2 diabetes mellitus with hyperglycemia, without long-term current use of insulin documented in this encounter Results * (ABNORMAL) POC Glycosylated Hemoglobin (Hb A1C) (11/15/2024 10:38 AM EDT) Hemoglobin A1C 7.1(A) 4.5 - 5.7 % [facility] Lot Number [id number] [facility] Expiration Date 07/25/25 [facility] Blood 11/15/2024 10:3 8 AM EDT Vanessa Valadez DO POINT OF CARE TEST ORDERA BLES Final Result [facility]
[address] [place] [id number], * POC Glucose, Blood (11/15/2024 10:37 AM EDT) Glucose 94 70 - 130 mg/dL Lot Number [id number] Expiration Date 05/08/25 Blood 11/15/2024 10:3 7 AM EDT Vanessa Valadez DO POINT OF CARE TEST ORDERA BLES Final Result documented in this encounter Visit Diagnoses Diagnosis Type 2 diabetes mellitus with hyperglycemia, without long-term current use of insulin- Primary Mixed hyperlipidemia documented in this encounter Care Teams Meat Molder Relationship Specialty Start Date End Date Kari Alarcon PA [address] [place] [address] PCP - General Physician Comp Field Case Manager 09/08/23 documented as of this encounter
--- OUTSIDE RECORDS SUMMARY | 2024-12-23 10:14 | XMS_ITS | Encounter Summary ---
[facility] Address [address] [place] [address] Care Team Providers Care Buckle And Button Maker Name Role Phone Kari Alarcon Primary Care Provider [phone] Reason for Visit * Reason Comments Med Refill Encounter Details Date Type Department Care Team (Late st Contact Info) Description 02/06/2018 Refill [facility]CR[facility]OLOGY [address] [place] [phone] Kerrie Tirado PA-C [address] [place] [address] Uncontrolled type 2 diabetes mellitus with hyperglycemia, without long-term current use of insulin Social History Tobacco Use Types Packs/Day Years Used Date Smoking Tobacco: Never Alcohol Use Standard Drinks/Week Comments No 0 (1 standard drink = 0.6 oz pur e alcohol) Comments Unknown Sex and Gender Information Value Date Recorded Sex Assigned at Not on file Legal Sex Female 1:46 PM EDT Gender Identity Not on file Sexual Orientation Not on file 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 I left a message to call to schedule a follow up, pt never called * Telephone Encounter - Toma Valle MA - 02/06/2018 5:32 PM EDT LMV to call to schedule appt then we could refill or give samples until the appt date documented in this encounter Plan of Treatment Upcoming Encounters Date Type Department Care Team (Late st Contact Info) Description 05/30/2025 11:00 AM EST Office Visit [facility] ENDOCRINOLOGY [address] [place] [address] Vanessa Valadez, [address] [place] [address] Scheduled Procedures Name Priority Associated Diagnoses Date/Ti me LEFT HEART CATH w/cors Unstable angina pectoris documented as of this encounter Visit Diagnoses Diagnosis Uncontrolled type 2 diabetes mellitus with hyperglycemia, without long-term current use of insulin documented in this encounter Care Teams Buckle And Button Maker Relationship Specialty Start Date End Date Kari Alarcon PA [address] [place] [address] PCP - General Physician Software Sales Executive 09/08/23 documented as of this encounter
--- OUTSIDE RECORDS SUMMARY | 2024-12-23 10:14 | XMS_ITS | Encounter Summary ---
Author Organization [facility] Address [address] [place] [address] Care Team Providers Care Greenhouse Superintendent Name Role Phone Kari Alarcon Primary Care Provider [phone] Encounter Details Date Type Department Care Team (Late st Contact Info) Description 11/15/2024 Telephone [facility] ENDOCRINOLOGY [address] [place] [address] PacVanessa cortes, DO [address] [place], [place] [id number] Social History Tobacco Use Types Packs/Day Years [...] 06/27 Potentially Unsafe Housing Conditions Not on [email or web address] e 07/23/2022 Disabilities Answer Date Recorded Difficulty Concentrating, Remembering or Making Decisions no 07/22/2022 Difficulty Managing Errands Independently no 07/22/2022 Education Answer Date Recorded Help with school or training? Not on file Preferred Language Swazi 2024 Comments No Sex and Gender Information Value Date Recorded Sex Assigned at Not on file Legal Sex Female 1:46 PM EDT Gender Identity Not on file Sexual Orientation Not on file Occupation Industry Job Start Date Job End Date registered nurse Not on file Not on file Not on file documented as of this encounter Miscellaneous Notes * Telephone Encounter - Iman Soriano - 11/15/2024 1:[address] Smith office faxing Lipid Profile. ALEM * Telephone Encounter - Iman Soriano - 11/15/2024 1:31 PM EDT ----- Message from Vanessa Valadez sent at 11/15/2024 11:12 AM EDT ----- Regarding: labs from Cardiology Please request labs from [facility] Schuster. TY! documented in this encounter Plan of Treatment Upcoming Encounters Date Type Department Care Team (Late st Contact Info) Description 05/30/2025 11:00 AM EST Office Visit [facility] ENDOCRINOLOGY [address] [place] [phone] Vanessa Valadez, DO [address] [place] [address] Scheduled Procedures Name Priority Associated Diagnoses Date/Ti me LEFT HEART CATH w/cors Unstable angina pectoris documented as of this encounter Visit Diagnoses Not on filedocumented in this encounter Care Teams Greenhouse Superintendent Relationship Specialty Start Date End Date Kari Alarcon PA [address] [place] [address] PCP - General Physician Police Detention Attendant 09/08/23 documented as of this encounter
--- OUTSIDE RECORDS SUMMARY | 2024-12-23 10:14 | XMS_ITS | Encounter Summary ---
[facility] [address] [place] [address] Care Team Providers Care Clam Treader Name Role Phone Kari Alarcon Primary Care Provider [phone] Reason for Visit * Reason Comments Med Refill Encounter Details Date Type Department Care Team (Late st Contact Info) Description 11/25/2024 Refill [facility]OLOGY [address] [place] [phone] Lea Dean APRN [address] [facility] [address] [place] [id number] Gastroesophageal reflux disease without esophagitis Social History Tobacco Use Types Packs/Day Years [...] or training? 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 * Telephone Encounter - Zeny Almodovar RegSched Rep - 11/25/2024 10:12 AM EDT COULD NOT LVM NO MAIL ARACELI SET UP FOR PT TO SCHEDULE FOLLOW UP APPT WITH LEA DEAN APRN FOR MEDICATION REFILLS (pantoprazole ) * Telephone Encounter - Caroline Jaramillo LPN - 11/25/2024 10:07 AM EDT Rx Refill Note Requested Prescriptions Pending Prescriptions Disp Refills pantoprazole (PROTONIX) 40 MG EC tablet [Pharmacy Med Name: pantoprazole 40 mg tablet,delayed release] 90 tablet 0 Sig: TAKE ONE TABLET BY MOUTH EVERY DAY Last office visit with prescribing clinician: 11/11/2023 Last telemedicine visit with prescribing clinician: Visit date not found Next office visit with prescribing clinician: Visit date not found Would you like a call back once the refill request has been completed: [] Yes [] No If the office needs to give you a call back, can they leave a voicemail: [] Yes [] No Caroline Jaramillo LPN 11/25/24, 10:08 EDT documented in this encounter Plan of Treatment Upcoming Encounters Date Type Department Care Team (Late st Contact Info) Description 05/30/2025 11:00 AM EST Office Visit [facility] ENDOCRINOLOGY [address] [place] [phone] Vanessa Valadez, DO [address] [place] [address] Scheduled Procedures Name Priority Associated Diagnoses Date/Ti me LEFT HEART CATH w/cors Unstable angina pectoris documented as of this encounter Visit Diagnoses Diagnosis Gastroesophageal reflux disease without esophagitis Esophageal reflux documented in this encounter Care Teams Clam Treader Relationship Specialty Start Date End Date Kari Alarcon PA [address] [place] [address] PCP - General Physician Board Member 09/08/23 documented as of this encounter
--- OUTSIDE RECORDS SUMMARY | 2024-12-23 10:14 | XMS_ITS | Encounter Summary ---
Author Organization [facility] Address [address] [place] [address] Care Team Providers Care Circus Laborer Name Role Phone Kari Alarcon Primary Care Provider [phone] Reason for Visit * Reason Comments Med Refill Encounter Details Date Type Department Care Team (Late st Contact Info) Description 11/21/2024 Refill [facility] [address] [place] [address] Toyin Harris, CHEESE CUTTER [address] [facility] [address] [place] [id number] Postmenopausal HRT (hormone replacement therapy); Night sweats Social History Tobacco Use Types Packs/Day Years [...] or training? 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 file Not on file documented as of this encounter Miscellaneous Notes * Telephone Encounter - Berta Quiroz MA - 11/22/2024 7:22 AM EDT Patient needs annual appt documented in this encounter Plan of Treatment Upcoming Encounters Date Type Department Care Team (Late st Contact Info) Description 05/30/2025 11:00 AM EST Office Visit [facility] ENDOCRINOLOGY [address] [place] [address] Vanessa Valadez, [address] [place] [address] Scheduled Procedures Name Priority Associated Diagnoses Date/Ti me LEFT HEART CATH w/cors Unstable angina pectoris documented as of this encounter Visit Diagnoses Diagnosis Postmenopausal HRT (hormone replacement therapy) Need for prophylactic hormone replacement therapy (postmenopausal) Night sweats Generalized hyperhidrosis documented in this encounter Care Teams Circus Laborer Relationship Specialty Start Date End Date Kari Alarcon PA [address] [place], [place] [id number] PCP - General Physician Recreation Specialist 09/08/23 documented as of this encounter
--- OUTSIDE RECORDS SUMMARY | 2024-12-23 10:14 | XMS_ITS | Clinical Summary ---
Author Organization [facility] Address [address] [place] [address] Care Team Providers Care Advertising Material Distributor Name Role Phone Pcp, No Primary Care [...] 2015 [facility]-Zoster Vaccines (1 of 2) 2015 [id number] Vaccine (1 20 24-25 season) 2024 [facility]-Influenza Vaccine (#1) 2025 HPV Vaccines Aged Out No longer [...] complete this topic Insurance [employer] Care Teams Advertising Material Distributor Relationship Specialty Start Date End Date Pcp, [place] [address] PCP - General Family Medicine 10/08/23
--- OUTSIDE RECORDS SUMMARY | 2024-12-23 10:14 | XMS_ITS | Encounter Summary ---
[facility] Address [address] [place] [address] Care Team Providers Care Personnel Coordinator Name Role Phone Kari Alarcon Primary Care Provider [phone] Encounter Details Date Type Department Care Team (Latest Contact Info) Description 11/15/2024 Travel Social History Tobacco Use Types Packs/Day Years [...] or training? 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 on file Not on file documented as of this encounter Plan of Treatment Upcoming Encounters Date Type Department Care Team (Late st Contact Info) Description 05/30/2025 11:00 AM EST Office Visit [facility] ENDOCRINOLOGY [address] [place] [phone] Vanessa Valadez, DO [address] [place] [address] Scheduled Procedures Name Priority Associated Diagnoses Date/Ti me LEFT HEART CATH w/cors Unstable angina pectoris documented as of this encounter Visit Diagnoses Not on filedocumented in this encounter Care Teams Personnel Coordinator Relationship Specialty Start Date End Date Kari Alarcon PA [address] [place] [address] PCP - General Physician Biological Sciences Professor 09/08/23 documented as of this encounter
--- OUTSIDE RECORDS SUMMARY | 2024-12-23 10:14 | XMS_ITS | Clinical Summary ---
[facility] Organization [facility] Address [address] [place] [address] Care Team Providers Care Hot Saw Helper Name Role Phone Kari Alarcon Primary Care Provider [phone] Allergies Active Allergy Reactions Criticality Noted Date Comments Contrast Dye (Echo Or Unknown Ct/Mr) Rash Low 08/28/2018 No issues with shellfish or iodine Statins Myalgia Low 08/28/2018 Medications lisinopril (PRINIVIL,ZESTR IL) 2.5 MG tablet Daily. 10/01/19 16 Active Biotin 23664 MCG tablet Take 1 tablet by mouth Daily. Active Multiple Vitamin (MULTI VITAMIN DAILY PO) Take by mouth Daily. Active aspirin 81 MG EC tablet Take 1 tablet by mouth Daily. Active nitroglycerin (NITROSTAT) 0.[address] 1 tablet under the tongue Every 5 (Five) Minutes As Needed for Chest Pain. Take no more than 3 doses in 15 minutes. Active clopidogrel (PLAVIX) 75 MG tablet Take 1 tablet by mouth Daily. 30 tablet 11 11/09/19 21 Active metoprolol succinate XL (TOPROL-XL) 100 MG 24 hr tablet Take 1 tablet by mouth Daily. 09/17/19 23 Active isosorbide mononitrate (IMDUR) 30 MG 24 hr tablet Take 1 tablet by mouth Daily. Active Repatha SureClick solution auto-injector SureClick injection Inject 1 mL under the skin into the appropriate area as directed Every 14 (Fourteen) Days. 07/30/19 24 Active Progesterone (Prometrium) 100 MG capsuleIndicati ons:Postmenopau amanda HRT (hormone replacement therapy),Night sweats Take 1 capsule by mouth Daily. 30 capsule 12 09/04/19 24 Active Baclofen (LIORESAL) 5 MG tablet 1 tablet Daily As Needed. 10/01/19 24 Active clobetasol (TEMOVATE) 0.05 % external solution APPLY TO SCALP (15-20 DROPS) EVERY EVENING DIRECTED 09/29/19 24 Active escitalopram (LEXAPRO) 10 MG tablet 1 tablet. 11/06/19 24 Active Ixekizumab 80 MG/ML solution auto-injector 80 mg Every 14 (Fourteen) Days. 11/06/19 24 Active linaclotide (LINZESS) 145 MCG capsule capsuleIndicati ons:Irritable bowel syndrome with constipation Take 1 capsule by mouth Every Morning Before Breakfast. 90 capsule 3 11/11/19 24 Active sodium-potassiu m-magnesium sulfates (Suprep Bowel Prep Kit) 17.5-3.13-1.6 GM/177ML solution oral solution Take First Dose at 5 pm Take Second Dose at 10 pm, Nothing to eat or drink after midnight. May substitute for Golytely or Moviprep. Follow instructions provided by Office. Call [phone] with questions. 354 mL 01/07/20 24 Active Jardiance 25 MG tablet tabletIndicatio ns:Type 2 diabetes mellitus with hyperglycemia, without long-term current use of insulin Take 1 tablet by mouth Daily. 90 tablet 3 05/12/20 24 Active Semaglutide,0.2 5 or 0.5MG/DOS, (Ozempic, 0.25 or 0.5 MG/DOSE,) 2 MG/3ML solution pen-injectorInd ications:Type 2 diabetes mellitus with hyperglycemia, without long-term current use of insulin Inject 0.5 mg under the skin into the appropriate area as directed 1 (One) Time Per Week. 3 mL 3 05/12/20 24 Active estradiol (ESTRACE) 0.5 MG tabletIndicatio ns:Postmenopaus al HRT (hormone replacement therapy) TAKE ONE TABLET BY MOUTH EVERY DAY 30 tablet 10/23/19 25 Active minoxidil (LONITEN) 2.5 MG tablet Take 1 tablet by mouth Daily. 11/10/19 25 Active pantoprazole (PROTONIX) 40 MG EC tabletIndicatio ns:Gastroesopha geal reflux disease without esophagitis TAKE ONE TABLET BY MOUTH EVERY DAY 90 tablet 11/26/19 25 Active pantoprazole (PROTONIX) 40 MG EC tabletIndicatio ns:Gastroesopha geal reflux disease without esophagitis Take 1 tablet by mouth Daily. 90 tablet 3 11/11/19 24 2024 Discontinued Active Problems Problem Noted Date Diagnosed Date Special screening for malignant neoplasms, colon 11/12/2023 Hx of heart artery stent 11/12/2023 Decreased libido 09/04/2023 Overview (09/04/2023): Affecting her marriage. Alayna info given, she wants to restart testosterone as this helped in the past, will need cards clearance for that. Will add vaginal estrogen, can try coconut oil. Discussed no approved meds for decreased libido in postmenopause 50-69% R ICA stenosis 07/22/2022 Coronary artery disease invo lving [place] coronary artery of [place] heart without angina pectoris 07/22/2022 Unstable angina 07/05/2022 Overview (07/05/2022): Added automatically from request for surgery [id number] Postmenopausal HRT (hormone replacement therapy) 07/27/2020 Overview (09/04/2023): Counseled in depth about VTE risk. Cards okay with her staying on HRT. She agrees to decrease to 0.5 mg and maybe wean off completely next year. She would like to add testosterone for decreased libido but she will need clearance from cards prior to that. MV CAD s/p stents 07/27/2020 Type 2 diabetes mellitus wit h hyperglycemia, without long-term current use of insulin 06/23/2017 Overview (11/25/2019): Diagnosed 2010, no complications Assessment & Plan (11/15/2024 11:36 AM EDT): Diagnosed 2010. Controlled with A1c down to [...] Optho exam is UTD 04/12/2024 without retinopathy. Mixed hyperlipidemia 06/23/2017 Assessment & Plan (11/15/2024 11:08 AM EDT): Familial hyperlipidemia. LDL remains greater than 200 despite Repatha. She follows with cardiology. Benign essential hypertension 11/26/2011 Resolved Problems Problem Noted Date Diagnosed Date Resolved Date Unstable angina 10/20/2020 07/11/2021 Overview (10/20/2020): Added automatically from request for surgery [id number] Unstable angina 08/25/2018 07/27/2020 Overview (08/25/2018): Added automatically from request for surgery [id number] Encounters Date Type Department Care Team Description 11/25/[address] [facility] [address] [place] [address] Lea Hernandez APRN Gastroesophageal reflux disease without esophagitis 11/21/2024 [facility] [address] [place] [address] Toyin Harris APRN Postmenopausal HRT (hormone replacement therapy); Night sweats 11/15/2024 10:45 AM EDT Office Visit [facility] ENDOCRINOLOGY [address] [place] [address] Vanessa Valadez, Type 2 diabetes mellitus with hyperglycemia, without long-term current use of insulin (Primary Dx); Mixed hyperlipidemia 11/15/[address] [facility] ENDOCR[facility]Y [address] [place] [address] Vanessa Valadez DO 11/15/2024 Travel 10/22/2024 Refill [facility] [address] [place] [address] Toyin Harris, MANUEL Postmenopausal HRT (hormone replacement therapy) (Primary Dx) from Last 3 Months Immunizations Immunization Administration Dates Next Due COVID-19 (MODERNA) 1st,2nd,3 rd Dose Monovalent 06/21/2020,06/21/2020,05/24/2020,2019 Fluzone Quad >6mos (Multi-dose) 09/04/2014 Tdap 06/26/2022 Family History Medical History Relation Name Comments Heart attack Father Diabetes Maternal Grandmother Maryjo Gonzales Stroke Maternal Grandmother Maryjo Gonzales Diabetes Maternal Uncle Barry Gonzales Arthritis Mother Breast cancer Neg Hx Colon cancer Neg Hx Ovarian cancer Neg Hx Relation Name Status Comments Father at age 58 yr Maternal Grandmother Maryjo Gonzales Maternal Uncle Barry Gonzales Mother Social History Tobacco Use Types Packs/Day Years Used Date Smoking Tobacco: Never Passive Smoke Exposure: Never Smokeless Tobacco: Never Tobacco Cessation:Counseling Given: Not Answered Alcohol Use Standard Drinks/Week Comments No 0 [...] or training? Not on file Preferred Language [place] 2024 Comments No Sex and Gender Information Value Date Recorded Sex Assigned at Not on file Legal Sex Female 1:46 PM EDT Gender Identity Not on file Sexual Orientation Not on file Occupation Industry Job Start Date Job End Date registered nurse Not on file Not on file Not on file Last Filed Vital Signs Vital Sign Reading Time Taken Comments Blood Pressure 106/68 11/15/2024 10:23 AM EDT Pulse 75 05/12/2024 8:20 AM EST Temperature 36.9 C (98.5 F) 01/15/2024 3:05 PM EDT Respiratory Rate 16 01/15/2024 3:13 PM EDT Oxygen Saturation 99% 05/12/2024 8:20 AM EST Inhaled Oxygen Concentration - - Weight 45.4 kg (100 lb) 11/15/2024 10:23 AM EDT Height 152.4 cm (5') 11/15/2024 10:23 AM EDT Body Mass Index 19.53 11/15/2024 10:23 AM EDT Plan of Treatment Upcoming Encounters Date Type Department Care Team (Late st Contact Info) Description 05/30/2025 11:00 AM EST Office Visit [facility] END[facility]CR[facility] [address] [place] [address] Vaenssa Valadez, DO [address] [place] [address] Scheduled Procedures Name Priority Associated Diagnoses Date/Ti me LEFT HEART CATH w/cors Unstable angina pectoris Health Maintenance Due Date Last Done Comments Hepatitis B (1 of 3 - 19+ 3- dose series) 01/09/1984 Pneumococcal Vaccine 50+ (1 of 2 - PCV) 01/09/1984 COLOGUARD 2010 COLON CANCER SCREENING 5 YEA [address] SIGMO[address] 2010 [address] COLONOGRAPHY 2010 FECAL OCCULT BLOOD TEST 2010 FIT Testing (1 year) 2010 ZOSTER VACCINE (1 of 2) 2015 ANNUAL PHYSICAL 06/23/2017 HEPATITIS C SCREENING 06/23/2017 LIPID PANEL 01/23/2019 01/23/2018, 04/25 (Patient-Reported (Performed Externally)) URINE MICROALBUMIN-CREATININ E RATIO (uACR) 07/27/2021 07/27/2020, 06/23/2017 COVID-19 Vaccine (2023-06 5 season) 2024 06/21/2020, 06/21/2020, 05/24/2020, Additional history exists Annual Gynecologic Pelvic an d Breast Exam 09/04/2024 09/04/2023 INFLUENZA VACCINE 02/23/2025 09/04/2014 DIABETIC EYE EXAM 04/12/2025 04/12/2024, (Patient-Reported (Performed Externally)), 12/21/2019 (Patient-Reported (Performed Externally)), Additional history exists HEMOGLOBIN A1C 05/17/2025 11/15/2024, 04/25, 08/06/2023, Additional history exists MAMMOGRAM 10/20/2025 10/21/2023 DIABETIC FOOT EXAM 11/15/2025 11/15/2024, 0 11/15/2024, 11/15/2024, Additional history exists PAP SMEAR 09/03/2026 09/04/2023, 01/26/2021 TDAP/TD VACCINES (2 - Td or Tdap) 06/26/2032 023 COLONOSCOPY 01/14/2034 01/15/2024, 12/25, 01/15/2024 COLORECTAL CANCER SCREENING 01/14/2034 Medical Devices Implanted Type Area Linoleum Tile Layer Device Identifier Shelf Expiration Date Model / Serial / Lot Markr Rust Radiomark Disk Ro [facility] - [id number] Implanted:Qty : 1 on 07/22/2022 by Dillon Lim MD at [facility] Implant N/A: Coronary [employer] 02/22/2027 [id number] / / [id number] Clipapplr M/ Endo Ligaclip 9 8in Sm - [id number] Implanted:Qty : 1 on 07/22/2022 by Dillon Lim MD at [facility] Implant Right: Leg [employer] DIV OF J AND J 10/25/2026 [id number] / / NA Stent Xience Yaneth Everolimus Alexander 3x33mm - [id number] Implanted:Qty : 1 on 08/28/2018 by Kofi Schuster MD at [facility] [employer] [id number] / / Stent Xience Yaneth Everolimus Alexander 2.38q61ef - [id number] Implanted:Qty : 1 on 08/28/2018 by Kofi Schuster MD at [facility] [employer] [id number] / / Stent Xience Yaneth Everolimus Alexander 2.5x12mm - [id number] Implanted:Qty : 1 on 08/28/2018 by Kofi Schuster MD at [facility] [employer] [id number] / / Stnt Xience Ynaeth Everolimus Alexander 2.5x15mm - [id number] Implanted:Qty : 1 on 11/08/2020 by Kofi Schuster MD at [facility] [employer] [id number] / / [id number] Procedures Procedure Name Priority Date/Time Associated Diagnosis Comments POCT GLYCOSYLATED HEMOGLOBIN (HGB A1C) Routine 11/15/2024 10:38 AM EDT Type 2 diabetes mellitus with hyperglycemia, without long-term current use of insulin POCT GLUCOSE, BLD (NON STRIP) Routine 11/15/2024 10:37 AM EDT Type 2 diabetes mellitus with hyperglycemia, without long-term current use of insulin SCANNED - LABS 09/30/2024 SCANNED - EYE EXAM 04/12/2024 SCANNED - COLONOSCOPY 01/15/2024 MAMMO SCREENING DIGITAL TOMOSYNTHESIS BILATERAL W CAD Routine 10/21/2023 2:47 PM EDT Encounter for screening mammogram for malignant neoplasm of breast LIQUID-BASED PAP SMEAR WITH HPV GENOTYPING REGARDLESS OF INTERPRETATION, [facility] (HAYDEE,COR,MAD) Routine 09/04/2023 10:35 AM EDT Women's annual routine gynecological examination MICROALBUMIN / CREATININE URINE RATIO Routine 07/27/2020 8:42 AM EST Uncontrolled type 2 diabetes mellitus with hyperglycemia, without long-term current use of insulin from Last 3 Months or Most Recently Relevant to Health Maintenance Results * (ABNORMAL) POC Glycosylated Hemoglobin (Hb A1C) (11/15/2024 10:38 AM EDT) Hemoglobin A1C 7.1(A) 4.5 - 5.7 % [facility] Lot Number [id number] [facility] Expiration Date 07/25/25 [facility] Blood 11/15/2024 10:3 8 AM EDT Vanessa Morrow Emersonrezai DO POINT OF CARE TEST ORDERA BLES Final Result [facility]
[address] [place] [address], * POC Glucose, Blood (11/15/2024 10:37 AM EDT) Glucose 94 70 - 130 mg/dL Lot Number [id number] Expiration Date 05/08/25 Blood 11/15/2024 10:3 7 AM EDT Vanessa Valadez DO POINT OF CARE TEST ORDERA BLES Final Result * LABS SCANNED (09/30/2024) Vanessa Valadez DO LAB BLOOD ORDERABLES Dai l Result * EYE EXAM SCANNED (04/12/2024) Anatomical Region Laterality Modality Other Vanessa Dhaliwali DO CHART REVIEW TABS Dai l Result * Colonoscopy, Scan (01/15/2024) Wilfredo Brock MD CHART REVIEW T ABS Final Result * Mammo Screening Digital Tomosynthesis Bilateral With CAD (10/21/2023 2:47 PM EDT) Anatomical Region Laterality Modality Breast N/A Mammography 10/24/2023 2:46 PM EDT Impressions 10/24/2023 2:47 PM EDT No findings suspicious for malignancy. ACR BI-RADS CATEGORY: 1, NEGATIVE RECOMMENDATION: Yearly mammogram, yearly clinical breast exam, and encourage self breast awareness. CAD was used. The standard false negative rate of mammography is between 10% and 25%. Complex patterns or increased breast density will markedly elevate the false negative rate of mammography. A letter, in lay terminology, with the results of this exam will be mailed to the patient. At our facility, a triangular marker is positioned over a palpable area of concern indicated by the patient. A table mountain marker is placed over a visible skin lesion. A linear marker indicates a scar. If there is a palpable area of concern, biopsy should be considered regardless of imaging findings. This report was finalized on 10/24/2023 2:[address] Jumana Atwood MD. Narrative 10/24/2023 2:47 PM EDT DIGITAL SCREENING MAMMOGRAM WITH TOMOSYNTHESIS HISTORY: Routine screening. IMAGE COMPARISON: None. TECHNIQUE: Low dose full field digital breast tomosynthesis imaging was performed with 2D and 3D acquisitions consisting of bilateral CC and MLO views. In addition, bilateral exaggerated lateral CC views were obtained. FINDINGS: There are scattered areas of fibroglandular density. There is no mass, worrisome microcalcifications, or architectural distortion to suggest development of malignancy. Toyin Harris PHYSICAL SCIENCE AIDE IMG MAMMOGRAPHY ORDERABLE S Final Result * LIQUID-BASED PAP SMEAR WITH HPV GENOTYPING REGARDLESS OF INTERPRETATION (HAYDEE,COR,MAD) (09/04/2023 10:35 AM EDT) Reference Lab Report [facility] [address] [place] [address] or [phone] Yung Gutierrez M.D., Jelly Filter Tender PATIENT NAME LABORATORY NO. 651 AL[address]IA [address]. [id number] AGE SEX SSN CLIENT REF # [facility] 58 1965 F [id number] [address] REQUESTING Valerie [place] [address] TOYIN HARRIS DATE COLLECTED DATE RECEIVED DATE REPORTED 09/04/2023 09/04/2023 09/10/2023 ThinPrep Pap with Cytyc Imaging DIAGNOSIS: Epithelial cell abnormality. (ASC) Atypical squamous cells of undetermined significance. Professional interpretation rendered by Vince Hinojosa M.D.,F.C.A.P. at [facility], [facility], [address] [place] [address]. SPECIMEN ADEQUACY: SATISFACTORY FOR EVALUATION Transformation zone is present. SOURCE OF SPECIMEN: CERVICAL/ENDOCERV ICAL SLIDES: 1 CLINICAL HISTORY: Women's annual routine gynecological examination Post Menopausal HPV HR-HPV POOL: Negative The Aptima HPV assay is an in vitro nucleic acid amplification test for the qualitative detection of E6/E7 viral messenger RNA from 14 high risk types of HPV in cervical specimens. The high risk HPV types detected include: 16, 18, 31, 33, 35, 39, 45, 51, 52, 56, 58, 59, 66, 68 SALES REPRESENTATIVE [employer]OM[employer]: REY BURK (ASCP) REVIEWED, DIAGNOSED AND ELECTRONICALLY SIGNED BY: Vince Hinojosa M.D.,F.C.A.P. CPT CODES: [id number], [id number], [id number] 09/10/2023 10:43 AM EDT [facility] ThinPrep Vial Collection / Unknown 09/04/2023 10:35 AM EDT 09/04/2023 10:35 AM EDT Toyin Harris PHYSICAL SCIENCE AIDE PATHOLOGY/CYTOLOGY ORDERA BLES Final Result [facility]
[address] [place] [address], * Microalbumin / Creatinine Urine Ratio - Urine, Clean Catch (07/27/2020 8:42 AM EST) Microalbumin/C reatinine Ratio 07/27/2020 7:35 PM EST [facility] Comment:Unable to calculate Creatinine, Urine 37.2 mg/dL 07/27/2020 7:35 PM EST [facility] Microalbumin, Urine <1.2 mg/dL 07/27/2020 7:35 PM EST [facility] Urine Urine specimen collection, clean catch / Unknown Collection / Unknown 07/27/2020 8:42 AM EST 07/27/2020 8:42 AM EST Vanessa Valadez DO URINE ORDERABLES Final Re sult [facility]
[address] [place] [address], from Last 3 Months or Most Recently Relevant to Health Maintenance Insurance [employer] Advance Directives * CPR (Attempt to Resuscitate) (Latest Code Status on File) Date Activated Date Inactivated Comments 07/22/2022 10:52 AM 07/28/2022 6:30 PM Question Answer Comments Code Status (Patient has no pulse and is not breathing): CPR (Attempt to Resuscitate) Medical Interventions (Patie nt has pulse or is breathing): Full Support Release to patient: Routine Release Care Teams Hot Saw Helper Relationship Specialty Start Date End Date Kari Alarcon PA [address] [facility] [address] [place], [place] [address] PCP - General Physician Soft Boarder 09/08/23
--- NOTE | 2024-12-23 10:27 | EXP.PAIN.SOA ---
[facility] Disclaimer: The information contained in this section may have been updated after the patient was seen, as this information can be updated by other users. Medical History Diabetes CAD (coronary artery disease) HLD (hyperlipidemia) Chronic back pain H/O irritable bowel syndrome H/O diverticulitis of colon Psoriasis HTN (hypertension) History of placement of stent in LAD coronary artery Surgical History H/O spinal fusion L5/S1 History of open heart surgery 07/22/2022 Double bypass surgery Family History Other No significant family history Social History Smoking Status: Never smoker alcohol intake: never substance use type: denies use current occupational status: other Travel in the last 8 weeks?: None household members: family housing: house lives independently: Yes marital status: number of children: 2 number of grandchildren: 2 service: No fdc: No pets and animals: Yes PM Subjective & Objective Subjective Subjective:: Patient is a pleasant 59-year-old female who presents today for follow-up. Today she rates her pain a 2 out of 10. She denies any new trauma or injury. She states that she still feels like her last lumbar epidural of L5-S1 in September has done exceptionally well. Patient initially rated 80% relief. She still feels like this is providing significant improvement. She does state that she just notices a little bit of sensation in her upper thighs but it is very much manageable and she is not even having the SI pain in and around her hips of the low back. She states she has not felt this great for years. Patient is prescribed pregabalin 25 mg twice daily from our office. She denies any side effects. Her David has been reviewed and is appropriate. Review of Systems: General: No recent weight changes, no fever, no sleep disturbances Respiratory: No cough, no shortness of air, no recurring pulmonary infections Cardiovascular/peripheral vascular: No chest pain, no palpitations, no edema, no shortness of breath Gastrointestinal: No new onset incontinence, normal bowel movements reported Genitourinary: No new onset incontinence Musculoskeletal: Thigh pain Psychiatric: [Normal mood/affect] Neurological: [Denies weakness in extremities], [denies balance issues] Pain at rest (0-10 scale): 2 Objective Objective:: Physical Exam: General: Alert and oriented x3, no acute distress, pleasant and cooperative Lungs: Respirations even and unlabored, symmetrical chest expansion Eyes: PERRL Musculoskeletal: Flexion and extension of lumbar [spine] within normal limits Neurological: Speech clear, no gross sensory deficit Has patient had previous pain injection?: No Conservative treatment options previously tried: Home exercise plan Length of treatment: Longer than 12 weeks Meds Home Medications and Allergies Home Medications ?Medication ?Instructions ?Recorded ?Confirmed ?Type empagliflozin 25 mg tablet 25 mg PO DAILY Diabetes 04/14/19 11/11/24 History isosorbide dinitrate 30 mg tablet 30 mg PO DAILY Hypertension 04/14/19 11/11/24 History lisinopril 2.5 mg tablet 2.5 mg PO DAILY Hypertension 04/14/19 11/11/24 History metoprolol succinate 100 mg 100 mg PO BID Hypertension 04/14/19 11/11/24 History tablet,extended release 24 hr aspirin 81 mg tablet,delayed 81 mg PO DAILY 12/02/22 11/11/24 History release (Adult Low Dose Aspirin) cyclobenzaprine 10 mg tablet 10 mg PO HS 12/02/22 11/11/24 History naproxen 500 mg tablet 500 mg PO BID PRN . 12/02/22 11/11/24 History semaglutide 0.25 mg or 0.5 mg (2 0.25 mg SQ WEEKLY 12/02/22 11/11/24 History mg/3 mL) subcutaneous pen injector (Ozempic) triamcinolone acetonide 0.1 % 1 applic topical BID #15 grams 12/06/22 11/11/24 Rx topical cream alirocumab 75 mg/mL subcutaneous 75 mg SQ Q2W 11/06/23 11/11/24 History pen injector (Praluent Pen) clopidogrel 75 mg tablet (Plavix) 75 mg PO DAILY 11/06/23 11/11/24 History ixekizumab 80 mg/mL subcutaneous 80 mg SQ Q4W 11/06/23 11/11/24 History auto-injector (Taltz Autoinjector) estradiol 0.5 mg tablet 0.5 mg PO DAILY 12/04/23 11/11/24 History progesterone micronized 100 mg 100 mg PO DAILY 12/04/23 11/11/24 History capsule baclofen 5 mg tablet 5 mg PO BID #60 tabs 05/13/24 11/11/24 Rx amitriptyline 10 mg tablet 10 mg PO HS #14 tabs 06/23/24 11/11/24 Rx azithromycin 250 mg tablet See Rx Instructions PO .COMPLEX #6 07/16/24 11/11/24 Rx (Zithromax Z-Marin) tabs mstvnhjttyafeoa-jxwaergzervnrta-DQ 5 ml PO Q4-6H PRN cold symptoms 07/16/24 11/11/24 Rx 2 mg-30 mg-10 mg/5 mL oral syrup #118 mL (Bromfed DM) escitalopram oxalate 10 mg tablet See Rx Instructions .Route 08/14/24 11/11/24 Rx .COMPLEX #30 tabs pregabalin 25 mg capsule 25 mg PO BID #60 caps 11/10/24 11/11/24 Rx New Prescriptions to Start Prescriptions: Allergies Allergy/AdvReac Type Severity Reaction Status Date / Time No Known Allergies Allergy Verified 07/16/24 09:53 Assessment and Plan *Assessment and plan (1) Lumbar radiculopathy: Status: Acute Category: Medical Code(s): M54.16 - Radiculopathy, lumbar region (2) Degenerative disc disease: Status: Acute Category: Medical Plan Patient has continued to get significant relief following her epidural and does not require any additional injection therapy at this time. I will make sure she has refills on her pregabalin. Patient will return to clinic in 3 months. Patient has been instructed to contact the clinic with any concerns before the next appointment. Dr. Easton has reviewed this note and agrees with this plan of care. This note was dictated using voice recognition software and make contain errors or omissions. All injections are used with Lidocaine, Bupivacaine and dexamethasone. Occasionally urine drug screen is needed to verify patient's compliance with our office pain contract. This is ordered based off specific treatments related to chronic pain with the potential to abuse certain medications.
[2024-12-23 10:56] VITALS: BP 116/59; PULSE 90; RESP 14; O2SAT 100; BMI 19.9
== END 2024-12-23 23:59 | disposition home or self-care (01) ==
PROVIDERS: Visit Provider Nurse Practitioner Family
DX: M54.16 Radiculopathy, lumbar region (principal); Z79.899 Other long term (current) drug therapy
CPT/HCPCS: 99212; G0463

== ENCOUNTER → 2025-01-19 08:16 | Outpatient (REF) | payer SELFPAY ==
--- OUTSIDE RECORDS SUMMARY | 2025-01-19 08:25 | XMS_ITS | Clinical Summary ---
Author Organization Healthcare Address [address] [place] [address] Care Team Providers Care Heating Element Repairer Name Role Phone Pcp, No Primary Care [...] Date Last Done Comments UKY-Depression Screening 1965 UKY-Infant/Child/Adol SDOH Screenings 1965 UKY- SDOH Screenings 1983 UKY-Adult SDOH Screenings 1983 UKY-DTaP,Tdap,and Td Vaccine s (1 - Tdap) 01/09/1984 UKY-Pap Smear 1986 [facility]Y-Cervical Cancer Screening 1995 UKY-HPV/Cotest 1995 CT Colonography 2010 Colonoscopy 2010 FIT-DNA 2010 FIT 2010 FOBT 2010 Sigmoidoscopy 2010 UKY-Colorectal Cancer Screening 2010 UKY-Pneumococcal Vaccine: 50 + Years (1 of 1 - PCV) 2015 UKY-Zoster Vaccines (1 of 2) 2015 [id number] Vaccine (1 - 20 24-25 season) 2024 UKY-Influenza Vaccine (#1) 2025 UKY-RSV Vaccine: 60+ Years o r (1 - 1-dose 75+ series) 01/09/2040 HPV Vaccines Aged Out No longer eligi [...] patient's age to complete this topic Insurance Care Teams Heating Element Repairer Relationship Specialty Start Date End Date Pcp, Alla [address] [place] [address] PCP - General Family Medicine 10/08/23
--- OUTSIDE RECORDS SUMMARY | 2025-01-19 08:25 | XMS_ITS | Clinical Summary ---
[facility] [address] [place] [address] Care Team Providers Care Program Counselor Name Role Phone Kari Alarcon Primary Care Provider [phone] Allergies Active Allergy Reactions Criticality Noted Date Comments Contrast Dye (Echo Or Unknown Ct/Mr) Rash Low 08/28/2018 No issues with shellfish or iodine Statins Myalgia Low 08/28/2018 Medications lisinopril (PRINIVIL,ZESTRI L) 2.5 MG tablet Daily. 10/01/19 16 Active Biotin 52413 MCG tablet Take 1 tablet by mouth [...] 07/30/19 24 Active Progesterone (Prometrium) 100 MG capsuleIndicatio ns:Postmenopausa l HRT (hormone replacement therapy),Night sweats Take 1 [...] 24 Active linaclotide (LINZESS) 145 MCG capsule capsuleIndicatio ns:Irritable bowel syndrome with constipation Take 1 capsule by mouth Every Morning Before Breakfast. 90 capsule 3 11/11/19 24 Active sodium-potassium -magnesium sulfates (Suprep Bowel Prep Kit) 17.5-3.13-1.6 GM/177ML solution oral solution Take First Dose at 5 pm Take Second Dose at 10 pm, Nothing to eat or drink after midnight. May substitute for Golytely or Moviprep. Follow instructions provided by Office. Call [phone] with questions. 354 mL 01/07/20 24 Active Jardiance 25 MG tablet tabletIndication s:Type 2 diabetes mellitus with hyperglycemia, without long-term current use of insulin Take 1 tablet by mouth Daily. 90 tablet 3 05/12/20 24 Active Semaglutide,0.25 or 0.5MG/DOS, (Ozempic, 0.25 or 0.5 MG/DOSE,) 2 MG/3ML solution pen-injectorIndi cations:Type 2 diabetes mellitus with hyperglycemia, without long-term current use of insulin Inject 0.5 mg under the skin into the appropriate area as directed 1 (One) Time Per Week. 3 mL 3 05/12/20 24 Active estradiol (ESTRACE) 0.5 MG tabletIndication s:Postmenopausal HRT (hormone replacement therapy) TAKE ONE TABLET BY MOUTH EVERY DAY 30 tablet 10/23/19 25 Active minoxidil (LONITEN) 2.5 MG tablet Take 1 tablet by mouth Daily. 11/10/19 25 Active pantoprazole (PROTONIX) 40 MG EC tabletIndication s:Gastroesophage al reflux disease without esophagitis TAKE ONE TABLET BY MOUTH EVERY DAY 90 tablet 11/26/19 25 Active fluconazole (Diflucan) 150 MG tabletIndication s:Vaginal yeast infection Take 1 tablet by mouth Every 72 (Seventy-Two) Hours for 3 doses. 3 tablet 01/12/20 25 025 Active Problems Problem Noted Date Diagnosed Date [...] stenosis 07/22/2022 Coronary artery disease invo lving [place] coronary artery of [place] heart without angina pectoris 07/22/2022 Unstable angina 07/05/2022 Overview (07/05/2022): Added automatically from request for surgery [id number] Postmenopausal HRT (hormone replacement therapy) 07/27/2020 Overview [...] (10/20/2020): Added automatically from request for surgery [id number] Unstable angina 08/25/2018 07/27/2020 Overview (08/25/2018): Added automatically from request for surgery [id number] Encounters Date Type Department Care Team Description 11/25/2024 Refill [facility] GASTROENTEROLOGY [address] [facility] [address] [place] [address] Lea Hernandez APRN Gastroesophageal reflux disease without esophagitis 11/21/2024 Refill [facility] OBGYN [address] [place] [address] Toyin Harris APRN Postmenopausal HRT (hormone replacement therapy); Night sweats 11/15/2024 10:45 AM EDT Office Visit [facility] ENDOCRINOLOGY [address] [facility] [address] [place] [address] Vanessa Valadez, DO Type 2 diabetes mellitus with hyperglycemia, without long-term current use of insulin (Primary Dx); Mixed hyperlipidemia 11/15/2024 Telephone [facility] ENDOCRINOLOGY [address] [facility] [address] [place] [address] Vanessa Valadez DO 11/15/2024 Travel 10/22/2024 Refill [facility] OBGYN [address] [place] [address] Toyin Harris M, BAGGAGE HANDLING SUPERVISOR Postmenopausal HRT (hormone replacement therapy) (Primary Dx) from Last 3 Months Immunizations Immunization Administration Dates Next Due COVID-19 (MODERNA) 1st,2nd,3 rd Dose Monovalent 06/21/2020,06/21/2020,05/24/2020,2019 Fluzone Quad >6mos (Multi-dose) 09/04/2014 Tdap 06/26/2022 Family History Medical History Relation Name Comments Heart attack Father Diabetes Maternal Grandmother Maryjo Gonzales Stroke Maternal Grandmother Maryjo Gonzales Diabetes Maternal Uncle Barry Goznales Arthritis Mother Breast cancer Neg Hx Colon [...] or training? Not on file Preferred Language Indonesian 2024 Comments No Sex and Gender Information [...] Visit [facility] ENDOCRINOLOGY [address] [place] [address] PacVanessa cortes, DO [address] [place] [address] Scheduled Procedures Name Priority Associated Diagnoses Date/Ti me LEFT HEART CATH w/cors Unstable angina pectoris Health Maintenance Due Date Last Done Comments Pneumococcal Vaccine 50+ (1 of 2 - PCV) 01/09/1984 COLOGUARD 2010 COLON CANCER SCREENING 5 YEA R SIGMOIDOSCOPY 2010 CT COLONOGRAPHY 2010 FECAL OCCULT BLOOD TEST 2010 FIT Testing (1 year) 2010 ZOSTER VACCINE (1 of 2) 2015 ANNUAL PHYSICAL 06/23/2017 HEPATITIS C SCREENING 06/23/2017 LIPID PANEL 01/23/2019 01/23/2018, 04/25 (Patient-Reported (Performed Externally)) URINE MICROALBUMIN-CREATININ E RATIO (uACR) 07/27/2021 07/27/2020, 06/23/2017 COVID-19 Vaccine (5 - 2024-2 5 season) 2024 06/21/2020, 06/21/2020, 05/24/2020, Additional [...] SCREENING 01/14/2034 Medical Devices Implanted Type Area Miller Apprentice Device Identifier Shelf Expiration Date Model / Serial / Lot Markr [facility] Radiomark Disk Ro Donna - [id number] Implanted:Qty : 1 on 07/22/2022 by Dillon Lim MD at [facility] Implant N/A: Coronary [employer] 02/22/2027 [id number] / / [id number] Clipapplr M/ Endo Ligaclip 9 8in Sm - [id number] Implanted:Qty : 1 on 07/22/2022 by Dillon Lim MD at [facility] Implant Right: Leg [employer] J AND J 10/25/2026 [id number] / / NA Stent Xience Yaneth Everolimus Alexander 3x33mm - [id number] Implanted:Qty : 1 on 08/28/2018 by Kofi Schuster MD at [facility] [employer] [id number] / / Stent Xience Yaneth Everolimus Alexander 2.88b15bn - [id number] Implanted:Qty : 1 on 08/28/2018 by Kofi Schuster MD at [facility] [employer] [id number] / / Stent Xience Yaneth Everolimus Alexander 2.5x12mm - [id number] Implanted:Qty : 1 on 08/28/2018 by Kofi Schuster MD at [facility] [employer] [id number] / / Stnt Xience Yaneth Everolimus Alexander 2.5x15mm - [id number] Implanted:Qty : 1 on 11/08/2020 by Kofi Schuster MD at [facility] [employer] [id number] / / [id number] Procedures Procedure Name Priority Date/Time Associated Diagnosis Comments POCT GLYCOSYLATED HEMOGLOBIN (HGB A1C) Routine 11/15/2024 10:38 AM EDT Type 2 diabetes mellitus with hyperglycemia, without long-term current use of insulin POCT GLUCOSE, BLD (NON STRIP) Routine 11/15/2024 10:37 AM EDT Type 2 diabetes mellitus with hyperglycemia, without long-term current use of insulin SCANNED - EYE EXAM 04/12/2024 SCANNED - [...] Hemoglobin A1C 7.1(A) 4.5 - 5.7 % [facility] Lot Number [id number] [facility] Expiration Date 07/25/25 [facility] Blood 11/15/2024 10:3 8 AM EDT Vanessa Valadez POINT OF CARE TEST ORDERA BLES Final Result [facility]
[address] [place] [address], * POC Glucose, Blood (11/15/2024 10:37 AM EDT) Glucose 94 70 - 130 mg/dL Lot Number [id number] Expiration Date 05/08/25 Blood 11/15/2024 10:3 7 AM EDT Vanessa Valadez POINT OF CARE TEST ORDERA BLES Final Result * EYE EXAM SCANNED (04/12/2024) Anatomical Region Laterality Modality Other Vanessa Valadez [facility] CHART REVIEW TABS Dai l Result * [...] of concern indicated by the patient. A cowlitz marker is placed over a visible skin [...] to suggest development of malignancy. Toyin Harris [facility] IMG MAMMOGRAPHY ORDERABLE S Final Result * LIQUID-BASED PAP SMEAR WITH HPV GENOTYPING REGARDLESS OF INTERPRETATION (HAYDEE,COR,MAD) (09/04/2023 10:35 AM EDT) Reference Lab Report [facility] [address] [place] [address] or [phone] Yung Gutierrez M.D., Pipe Washer PATIENT NAME LABORATORY NO. [address] [facility] [id number] AGE SEX SSN CLIENT REF # [id number] 58 1965 F [id number] [address] REQUESTING Valerie [place] [address] TOYIN HARRIS DATE COLLECTED DATE RECEIVED DATE REPORTED 09/04/2023 09/04/2023 09/10/2023 ThinPrep Pap with Cytyc Imaging DIAGNOSIS: Epithelial cell abnormality. (ASC) Atypical squamous cells of undetermined significance. Professional interpretation rendered by Vince Hinojosa M.D.,Rosmery at [employer], [facility], [address] [place] [address]. SPECIMEN ADEQUACY: SATISFACTORY FOR EVALUATION Transformation zone [...] 51, 52, 56, 58, 59, 66, 68 ON CALL: REY BURK (ASCP) REVIEWED, DIAGNOSED AND ELECTRONICALLY SIGNED BY: Vince Hinojosa M.D.,Lillian. CPT CODES: [id number], [id number], [id number] 09/10/2023 10:43 AM EDT [facility] ThinPrep Vial Collection / Unknown 09/04/2023 10:35 AM EDT 09/04/2023 10:35 AM EDT Toyin Harris APRN PATHOLOGY/CYTOLOGY ORDERA BLES Final Result [facility]
[address] [place] [address], * Microalbumin / Creatinine Urine Ratio - Urine, Clean Catch (07/27/2020 8:42 AM EST) Microalbumin/C reatinine Ratio 07/27/2020 7:35 PM EST [facility] Comment:Unable to calculate Creatinine, Urine 37.2 mg/dL 07/27/2020 7:35 PM EST [facility] Microalbumin, Urine <1.2 mg/dL 07/27/2020 7:35 PM EST [facility] Urine Urine specimen collection, clean catch / Unknown Collection / Unknown 07/27/2020 8:42 AM EST 07/27/2020 8:42 AM EST us Vanessa Odalys Allyson DO URINE ORDERABLES Final Re sult [facility]
[address] [place] [address], [place] [phone] from Last 3 Months or Most Recently Relevant to Health Maintenance Insurance [employer] EM[employer]OYEE UMR Advance Directives * CPR (Attempt to Resuscitate) (Latest Code Status on File) Date Activated Date Inactivated Comments 07/22/2022 10:52 AM 07/28/2022 6:30 PM Question Answer Comments Code Status (Patient has no pulse and is not breathing): CPR (Attempt to Resuscitate) Medical Interventions (Patie nt has pulse or is breathing): Full Support Release to patient: Routine Release Care Teams Program Counselor Relationship Specialty Start Date End Date Kari Alarcon PA [address] [facility] [address] [facility] [address] [place] [address] PCP - General Physician Hydraulic Pile Hammer Operator 09/08/23
--- OUTSIDE RECORDS SUMMARY | 2025-01-19 08:25 | XMS_ITS | Encounter Summary ---
[facility] [address] [place] [address] Care Team Providers Care Card Maker Name Role Phone Kari Alarcon Primary Care Provider [phone] Reason for Visit * Reason Comments Med Refill Encounter Details Date Type Department Care Team (Late st Contact Info) Description 11/21/2024 Refill [facility] OBGYN [address] [place] [address] Toyin Harris, CORPORATE WELLNESS COORDINATOR [address] [facility] [address] [address] [place] [address] [phone] Postmenopausal HRT (hormone replacement therapy); Night sweats [...] or training? Not on file Preferred Language German 2024 Comments No Sex and Gender Information [...] Description 05/30/2025 11:00 AM EST Office Visit [facility] ENDOCRINOLOGY [address] [place] [address] Vanessa Valadez, [address] [place] [address] Scheduled Procedures Name Priority Associated Diagnoses Date/Ti me LEFT HEART CATH w/cors Unstable angina pectoris documented as of this encounter Visit Diagnoses Diagnosis Postmenopausal HRT (hormone replacement therapy) Need for prophylactic hormone replacement therapy (postmenopausal) Night sweats Generalized hyperhidrosis documented in this encounter Care Teams Card Maker Relationship Specialty Start Date End Date Kari Alarcon PA [address] [place], [place] [id number] PCP - General Physician Special Procedures Nurse 09/08/23 documented as of this encounter
--- OUTSIDE RECORDS SUMMARY | 2025-01-19 08:25 | XMS_ITS | Encounter Summary ---
[facility] Organization [facility] [address] [place] [address] Care Team Providers Care Clinical Research Analyst Name Role Phone Kari Alarcon Primary Care Provider [phone] Reason for Visit * Reason Comments Med Refill Encounter Details Date Type Department Care Team (Late st Contact Info) Description 11/25/2024 Refill [facility] GASTROENTEROLOGY [address] [facility] [address] [place] [address] Lea Dean APRN [address] [facility] [address] [place] [id number] Gastroesophageal reflux disease without esophagitis Social History [...] or training? Not on file Preferred Language Pap[place]inean 2024 Comments No Sex and Gender Information [...] Description 05/30/2025 11:00 AM EST Office Visit [facility] ENDOCR[facility]OLOGY [address] [place] [address] Vanessa Valadez, DO [address] [place] [address] Scheduled Procedures Name Priority Associated Diagnoses Date/Ti me LEFT HEART CATH w/cors Unstable angina pectoris documented as of this encounter Visit Diagnoses Diagnosis Gastroesophageal reflux disease without esophagitis Esophageal reflux documented in this encounter Care Teams Clinical Research Analyst Relationship Specialty Start Date End Date Kari Alarcon PA [address] [place] [address] PCP - General Physician Cable Wirer 09/08/23 documented as of this encounter
--- OUTSIDE RECORDS SUMMARY | 2025-01-19 08:26 | XMS_ITS | Encounter Summary ---
[facility] [address] [place] [address] Care Team Providers Care Supervisor Decorating Name Role Phone Kari Alarcon Primary Care Provider [phone] Reason for Visit * Reason Comments Med Refill Encounter Details Date Type Department Care Team (Late st Contact Info) Description 02/06/2018 Refill [facility] END[facility]CR[facility] [address] [facility] [address] [place] [address] Kerrie Tirado PA-C [address] [address] [facility] [address] [place] [address] Uncontrolled type 2 diabetes mellitus with hyperglycemia, [...] Description 05/30/2025 11:00 AM EST Office Visit [facility] ENDOCRINOLOGY [address] [place] [address] Vanessa Valadez, [address] [place] [address] Scheduled Procedures Name Priority Associated Diagnoses Date/Ti me LEFT HEART CATH w/cors Unstable angina pectoris documented as of this encounter Visit Diagnoses Diagnosis Uncontrolled type 2 diabetes mellitus with hyperglycemia, without long-term current use of insulin documented in this encounter Care Teams Supervisor Decorating Relationship Specialty Start Date End Date Kari Alarcon PA [address] [place] [address] PCP - General Physician Ranch Rider 09/08/23 documented as of this encounter
[2025-01-19 08:33] LABS: COC Drug Screen Collection Only
[2025-01-20 09:13] LABS: Hep A Ab, Total Negative (Negative)
[2025-01-20 10:13] LABS: Measles Antibodies, IgG 177.0 AU/mL (Immune >16.4); Mumps Abs, IgG >300.0 AU/mL (Immune >10.9); Rubella Antibodies, IgG 7.34 index (Immune >0.99)
== END ==
LOC: LAB 08:16
CPT/HCPCS: 86480; 86706; 86708; 86735; 86762; 86765; 86787

== ENCOUNTER 2025-03-24 10:47 | Outpatient (CLI) | payer OTHER, MEDICARE, SELFPAY ==
--- NOTE | 2025-03-24 10:59 | XR_ITS ---
FINAL REPORT CLINICAL HISTORY: recent fall x 2 weeks ago, pain FINDINGS: SACRUM/COCCYX Three views were obtained. There is no acute fracture or dislocation. There are mild hypertrophic changes of the sacroiliac joints. The sacral arch is intact. No acute soft tissue abnormality is seen. IMPRESSION: No acute bony abnormality. Reviewed, Interpreted and Dictated by Abilio Townsend MD Transcribed by Marina Brady Authenticated and [facility]
--- OUTSIDE RECORDS SUMMARY | 2025-03-24 11:16 | XMS_ITS | Encounter Summary ---
[facility] [address] [place] [address] Care Team Providers Care Assistant Property Manager Name Role Phone Kari Alarcon Primary Care Provider [phone] Encounter Details Date Type Department Care Team (Late st Contact Info) Description 02/17/2025 Refill [facility] ENDOCRINOLOGY [address] [place] [address] PacVanessa cortes, DO [address] [place], [place] [id number] Type 2 diabetes mellitus with hyperglycemia, without [...] or training? Not on file Preferred Language East Timorese 2024 Comments No Sex and Gender Information Value Date Recorded Sex Assigned at Not on file Legal Sex Female 1:46 PM EDT Gender Identity Not on file Sexual Orientation Not on file Occupation Industry Job Start Date Job End Date registered nurse Not on file Not on file Not on file documented as of this encounter Miscellaneous Notes * Telephone Encounter - Penny Link) - 02/17/2025 2:51 PM EDT Rx Refill Note Requested Prescriptions Pending Prescriptions Disp Refills Semaglutide,0.25 or 0.5MG/DOS, (Ozempic, 0.25 or 0.5 MG/DOSE,) 2 MG/3ML solution pen-injector 3 mL 3 Sig: Inject 0.5 mg under the skin into the appropriate area as directed 1 (One) Time Per Week. Last office visit with prescribing clinician: 11/15/2024 Next office visit with prescribing clinician: 05/30/2025 Penny Link (Jodi) 02/17/25, 14:51 EDT * Telephone Encounter - Sherice Carver RegSched Rep - 02/17/2025 2:37 PM EDT Pharmacy called pt has transferred pharmacies. Please send Ozempic 0.5 mg to [facility] documented in this encounter Plan of Treatment Upcoming Encounters Date Type Department Care Team (Late st Contact Info) Description 05/30/2025 11:00 AM EST Office Visit [facility] ENDOCRINOLOGY [address] [address] AllysonVanessa JaeDO kaitlin [address] [facility] [address] [place] [address] Scheduled Procedures Name Priority Associated Diagnoses Date/Ti me LEFT HEART CATH w/cors Unstable angina pectoris documented as of this encounter Visit Diagnoses Diagnosis Type 2 diabetes mellitus with hyperglycemia, without long-term current use of insulin documented in this encounter Care Teams Assistant Property Manager Relationship Specialty Start Date End Date Kari Alarcon PA [address] [place] [address] PCP - General Physician Warble Saw Operator 09/08/23 documented as of this encounter
--- OUTSIDE RECORDS SUMMARY | 2025-03-24 11:16 | XMS_ITS | Encounter Summary ---
[facility] [address] [place] [address] Care Team Providers Care Patient Access Director Name Role Phone Kari Alarcon Primary Care Provider [phone] Reason for Visit * Reason Comments Med Refill Encounter Details Date Type Department Care Team (Late st Contact Info) Description 11/21/2024 Refill [facility] OBGYN [address] [place] [address] Toyin Harris, DIRECTOR HUMAN SERVICES [address] [facility] [address] [place] [address] [phone] Postmenopausal HRT (hormone replacement therapy); Night sweats [...] or training? Not on file Preferred Language Spanish 2024 Comments No Sex and Gender Information [facility] [address] [place] [address] Vanessa Valadez, [address] [place] [address] Scheduled Procedures Name Priority Associated Diagnoses Date/Ti me LEFT HEART CATH w/cors Unstable angina pectoris documented as of this encounter Visit Diagnoses Diagnosis Postmenopausal HRT (hormone replacement therapy) Need for prophylactic hormone replacement therapy (postmenopausal) Night sweats Generalized hyperhidrosis documented in this encounter Care Teams Patient Access Director Relationship Specialty Start Date End Date Kari Alarcon PA [address] [place], [place] [id number] PCP - General Physician Home Care Assistant 09/08/23 documented as of this encounter
--- OUTSIDE RECORDS SUMMARY | 2025-03-24 11:16 | XMS_ITS | Clinical Summary ---
Author Organization Healthcare Address [address] [place] [address] Care Team Providers Care Non Profit Director Name Role Phone Pcp, No Primary Care [...] 2015 UKY-Zoster Vaccines (1 of 2) 2015 [id number] Vaccine (1 - 20 24-25 season) 2025 UKY-Influenza Vaccine (#1) 2025 UKY-RSV Vaccine: 60+ [...] to complete this topic Insurance Care Teams Non Profit Director Relationship Specialty Start Date End Date Pcp, Alla [address] [place] [address] PCP - General Family Medicine 10/08/23
--- OUTSIDE RECORDS SUMMARY | 2025-03-24 11:16 | XMS_ITS | Encounter Summary ---
[facility] [address] [place] [address] Care Team Providers Care Poured Pipe Maker Name Role Phone Kari Alarcon Primary Care Provider [phone] Reason for Visit * Reason Comments Med Refill Encounter Details Date Type Department Care Team (Late st Contact Info) Description 02/06/2018 Refill [facility] [address] [facility] [address] [place] [address] Kerrie Tirado PA-C [address] [facility] [address] [place] [address] Uncontrolled type 2 diabetes mellitus with hyperglycemia, [...] Description 05/30/2025 11:00 AM EST Office Visit [facility] [address] [place] [address] Vanessa Valadez, [address] [place] [address] Scheduled Procedures Name Priority Associated Diagnoses Date/Ti me LEFT HEART CATH w/cors Unstable angina pectoris documented as of this encounter Visit Diagnoses Diagnosis Uncontrolled type 2 diabetes mellitus with hyperglycemia, without long-term current use of insulin documented in this encounter Care Teams Poured Pipe Maker Relationship Specialty Start Date End Date Kari Alarcon PA [address] [place] [address] PCP - General Physician School Cook 09/08/23 documented as of this encounter
--- OUTSIDE RECORDS SUMMARY | 2025-03-24 11:16 | XMS_ITS | Clinical Summary ---
[facility] [address] [place] [address] Care Team Providers Care Family Consumer Science Fcs Teacher Name Role Phone Kari Alarcon Primary Care Provider Allergies Active Allergy Reactions Criticality Noted Date Comments Contrast Dye (Echo Or Unknown Ct/Mr) Rash Low 08/28/2018 No issues with shellfish or iodine Statins Myalgia Low 08/28/2018 Medications lisinopril (PRINIVIL,ZESTRI L) 2.5 MG tablet Daily. 6 Active Biotin 99593 MCG tablet Take 1 tablet by mouth [...] tablet by mouth Daily. 30 tablet 11 1 Active metoprolol succinate XL (TOPROL-XL) 100 MG 24 hr tablet Take 1 tablet by mouth Daily. 3 Active isosorbide mononitrate (IMDUR) 30 MG 24 hr tablet Take 1 tablet by mouth Daily. Active Repatha SureClick solution auto-injector SureClick injection Inject 1 mL under the skin into the appropriate area as directed Every 14 (Fourteen) Days. 4 Active Progesterone (Prometrium) 100 MG capsuleIndicatio ns:Postmenopausa l HRT (hormone replacement therapy),Night sweats Take 1 capsule by mouth Daily. 30 capsule 12 4 Active Baclofen (LIORESAL) 5 MG tablet 1 tablet Daily As Needed. 4 Active clobetasol (TEMOVATE) 0.05 % external solution APPLY TO SCALP (15-20 DROPS) EVERY EVENING DIRECTED 4 Active escitalopram (LEXAPRO) 10 MG tablet 1 tablet. 4 Active Ixekizumab 80 MG/ML solution auto-injector 80 mg Every 14 (Fourteen) Days. 4 Active linaclotide (LINZESS) 145 MCG capsule capsuleIndicatio ns:Irritable bowel syndrome with constipation Take 1 capsule by mouth Every Morning Before Breakfast. 90 capsule 3 4 Active sodium-potassium -magnesium sulfates (Suprep Bowel Prep Kit) 17.5-3.13-1.6 GM/177ML solution oral solution Take First Dose at 5 pm Take Second Dose at 10 pm, Nothing to eat or drink after midnight. May substitute for Golytely or Moviprep. Follow instructions provided by Office. Call [phone] with questions. 354 mL 4 Active Jardiance 25 MG tablet tabletIndication s:Type 2 diabetes mellitus with hyperglycemia, without long-term current use of insulin Take 1 tablet by mouth Daily. 90 tablet 3 4 Active estradiol (ESTRACE) 0.5 MG tabletIndication s:Postmenopausal HRT (hormone replacement therapy) TAKE ONE TABLET BY MOUTH EVERY DAY 30 tablet 5 Active minoxidil (LONITEN) 2.5 MG tablet Take 1 tablet by mouth Daily. 5 Active pantoprazole (PROTONIX) 40 MG EC tabletIndication s:Gastroesophage al reflux disease without esophagitis TAKE ONE TABLET BY MOUTH EVERY DAY 90 tablet 5 Active Semaglutide,0.25 or 0.5MG/DOS, (Ozempic, 0.25 or 0.5 MG/DOSE,) 2 MG/3ML solution pen-injectorIndi cations:Type 2 diabetes mellitus with hyperglycemia, without long-term current use of insulin Inject 0.5 mg under the skin into the appropriate area as directed 1 (One) Time Per Week. 3 mL 3 5 Active Active Problems Problem Noted Date Diagnosed Date [...] stenosis 07/22/2022 Coronary artery disease invo lving [place] coronary artery of [place] heart without angina pectoris 07/22/2022 Unstable angina 07/05/2022 Overview (07/05/2022): Added automatically from request for surgery [id number] Postmenopausal HRT (hormone replacement therapy) 07/27/2020 Overview [...] (10/20/2020): Added automatically from request for surgery [id number] Unstable angina 08/25/2018 07/27/2020 Overview (08/25/2018): Added automatically from request for surgery [id number] Encounters Date Type Department Care Team Description 02/17/2025 Refill [facility] [address] [place] [address] Vanessa Valadez, Type 2 diabetes mellitus with hyperglycemia, without long-term current use of insulin from Last 3 Months Immunizations Immunization Administration [...] or training? Not on file Preferred Language Hong Konger 2024 Comments No Sex and Gender Information [...] Description 05/30/2025 11:00 AM EST Office Visit [facility] [address] [place] [address] Vanessa Valadez, [address] [place] [address] Scheduled Procedures Name Priority Associated Diagnoses Date/Ti [...] MICROALBUMIN-CREATININ E RATIO (uACR) 07/27/2021 07/27/2020, 06/23/2017 Annual Gynecologic Pelvic an d Breast Exam 09/04/2024 09/04/2023 INFLUENZA VACCINE 12/24/2024 09/04/2014 DIABETIC EYE EXAM 04/12/2025 04/12/2024, (Patient-Reported (Performed Externally)), 12/21/2019 (Patient-Reported (Performed Externally)), Additional history exists HEMOGLOBIN A1C 05/17/2025 11/15/2024, 04/25, 08/06/2023, Additional history exists MAMMOGRAM 10/23/2025 10/24/2023, 10/21/2023 DIABETIC FOOT EXAM 11/15/2025 11/15/2024, 0 11/15/2024, 11/15/2024, Additional history exists PAP SMEAR 09/03/2026 09/04/2023, 01/26/2021 TDAP/TD VACCINES (2 - Td or Tdap) 06/26/2032 023 COLONOSCOPY 01/14/2034 01/15/2024, 12/25, 01/15/2024 COLORECTAL CANCER SCREENING 01/14/2034 Medical Devices Implanted Type Area Rare/Endangered Species Specialist Device Identifier Shelf Expiration Date Model / Serial / Lot Markr [facility] Radiomark Disk Ro Donna - [id number] Implanted:Qty : 1 on 07/22/2022 by Dillon Lim MD at [facility] Implant N/A: Coronary [employer] 02/22/2027 [id number] / / [id number] Clipapplr M/ Endo Ligaclip 9 3/8in Sm - [id number] Implanted:Qty : 1 on 07/22/2022 by Dillon Lim MD at [facility] Implant Right: Leg [employer] OF J AND J 10/25/2026 [id number] / / NA Stent Xience Yaneth Everolimus Alexander 3x33mm - [id number] Implanted:Qty : 1 on 08/28/2018 by Kofi Schuster MD at [facility] [employer] [id number] / / Stent Xience Yaneth Everolimus Alexander 2.71e71px - [id number] Implanted:Qty : 1 on 08/28/2018 by Kofi Schuster MD at [facility] [employer] [id number] / / Stent Xience Yaneth Everolimus Alexander 2.5x12mm - [id number] Implanted:Qty : 1 on 08/28/2018 by Kofi Schuster MD at [facility] [employer] [id number] / / Stnt Xience Yaneth Everolimus Alexander 2.5x15mm - [id number] Implanted:Qty : 1 on 11/08/2020 by Kofi Schuster MD at [facility] [employer] [id number] / / [id number] Procedures Procedure Name Priority Date/Time Associated Diagnosis [...] Hemoglobin A1C 7.1(A) 4.5 - 5.7 % [facility] Lot Number [id number] [facility] Expiration Date 07/25/25 [facility] Blood 11/15/2024 10:3 8 AM EDT Vanessa Valadez DO POINT OF CARE TEST ORDERA BLES Final Result [facility]
[address] [place] [address], * EYE EXAM SCANNED (04/12/2024) Anatomical Region Laterality Modality Other Vanessa Valadez DO CHART REVIEW TABS Dai l Result [...] of concern indicated by the patient. A [place] marker is placed over a visible skin [...] to suggest development of malignancy. Toyin Harris WAREHOUSE COORDINATOR IMG MAMMOGRAPHY ORDERABLE S Final Result * LIQUID-BASED PAP SMEAR WITH HPV GENOTYPING REGARDLESS OF INTERPRETATION (HAYDEE,COR,MAD) (09/04/2023 10:35 AM EDT) Reference Lab Report [facility] [address] [place] [address] or [phone] Yung Gutierrez M.D., Dub Room Engineer PATIENT NAME LABORATORY NO. 6[address] FLAVIO ALYSIA KOLB. [id number] AGE SEX SSN CLIENT REF # [id number] 58 1965 F [id number] [address] REQUESTING Valerie [place] [address] TOYIN HARRIS DATE COLLECTED DATE RECEIVED DATE REPORTED 09/04/2023 09/04/2023 09/10/2023 ThinPrep Pap with Cytyc Imaging DIAGNOSIS: Epithelial cell abnormality. (ASC) Atypical squamous cells of undetermined significance. Professional interpretation rendered by Vince Hinojosa M.D.,[place] at [employer] [place], [facility], [address] [place] [address]. SPECIMEN ADEQUACY: SATISFACTORY FOR EVALUATION Transformation zone [...] 51, 52, 56, 58, 59, 66, 68 FIRE BEHAVIOR ANALYST: REY BURK (ASCP) REVIEWED, DIAGNOSED AND ELECTRONICALLY SIGNED BY: Vince Hinojosa M.D.,[place]mer[place] CPT CODES: [id number], [id number], [id number] 09/10/2023 10:43 AM EDT [facility] ThinPrep Vial Collection / Unknown 09/04/2023 10:35 AM EDT 09/04/2023 10:35 AM EDT Toyin Harris APRN PATHOLOGY/CYTOLOGY ORDERA BLES Final Result [facility]
[address] [place] [address], * Microalbumin / Creatinine Urine Ratio - Urine, Clean Catch (07/27/2020 8:42 AM EST) Microalbumin/C reatinine Ratio 07/27/2020 7:35 PM EST [facility] Comment:Unable to calculate Creatinine, Urine 37.2 mg/dL 07/27/2020 7:35 PM EST [facility] Microalbumin, Urine <1.2 mg/dL 07/27/2020 7:35 PM EST [facility] Urine Urine specimen collection, clean catch / Unknown Collection / Unknown 07/27/2020 8:42 AM EST 07/27/2020 8:42 AM EST us Vanessa Morrow Madhuriyadiel DO URINE ORDERABLES Final Re sult [facility]
[address] [place] [address], [place] [phone] from Last 3 Months or Most Recently Relevant to Health Maintenance Insurance [employer] Advance Directives * CPR (Attempt to Resuscitate) (Latest Code Status on File) Date Activated Date Inactivated Comments 07/22/2022 10:52 AM 07/28/2022 6:30 PM Question Answer Comments Code Status (Patient has no pulse and is not breathing): CPR (Attempt to Resuscitate) Medical Interventions (Patie nt has pulse or is breathing): Full Support Release to patient: Routine Release Care Teams Family Consumer Science Fcs Teacher Relationship Specialty Start Date End Date Kari Alarcon PA [address] [facility] [address] [facility] [place] [address] PCP - General Physician P 3 Armament/Ordnance Ima Technician 09/08/23
== END 2025-03-24 23:59 | disposition home or self-care (01) ==
LOC: RAD 10:55
PROVIDERS: PCP Internal Medicine; Visit Provider Nurse Practitioner Family
DX: M53.3 Sacrococcygeal disorders, not elsewhere classified (principal); Z91.81 History of falling
CPT/HCPCS: 72220